=== PATIENT | female | born 1935 | race Caucasian/White ===

== ENCOUNTER 2017-09-17 12:31 | Inpatient (IN) | payer OTHER ==
[2017-09-17] VITALS (9 sets, daily range): BP systolic 137–159; BP diastolic 70–91; PULSE 76–89; TEMP 36.8–37; O2SAT 91–99; BMI 18.2
[~2017-09-17] VITALS: Ht 162.6 cm; Wt 45.4 kg
[~2017-09-17 12:31] MED LIST: CZR50; DYZ; K LYTE; LEVOXYL; VITAMIN D
[2017-09-17] MEDS ORDERED: CEFTRIAXONE SOD INJ 1 GM ADDVIAL IV STA (12:50)
[2017-09-17] MEDS ORDERED: METHYLPREDNISOLONE 125 MG VIAL IV STA (12:50)
[2017-09-17] MEDS ORDERED: AZITHROMYCIN 250 MG TAB PO ONE (13:00)
[2017-09-17] MEDS ORDERED: ALBUT/IPRATROP 3MG/0.5MG NEB 3 ML VIAL INH ONE (13:00)
[2017-09-17 13:28] LABS: BASO % 0.8 %; BASO ABS # 0.04 K/uL (0-0.2); EOS % 2.5 %; EOS ABS # 0.13 K/uL (0-0.5); HEMATOCRIT 44.6 % (37-47); HEMOGLOBIN 15.2 g/dL (12.0-16.0); IG# 0.01 K/uL (0.00-0.02); LYMPH ABS # 1.38 K/uL (1.2-3.4); MEAN CELL VOLUME 92.9 fL (80-100); MEAN CORPUSCULAR HEMOGLOBIN 31.7 pg (25-34); MEAN CORPUSCULAR HGB CONC 34.1 g/dl (32-36); MEAN PLATELET VOLUME 10.2 fL (7.4-10.4); MONO % 10.6 %; MONO ABS # 0.56 K/uL (0.11-0.59); NEUT % 59.9 %; NEUT ABS # 3.18 K/uL (1.4-6.5); PLATELET COUNT 156 K/uL (130-400); RED CELL DISTRIBUTION WIDTH CV 13.2 % (11.5-14.5); RED CELL DISTRIBUTION WIDTH SD 45.1 fL (36.4-46.3)
--- NOTE | 2017-09-17 13:33 | DIAGNOSTIC IMAGING REPORT ---
CHEST ONE VIEW PORTABLE CLINICAL HISTORY: Respiratory distress COMPARISON STUDY: 09/03/2009 FINDINGS: The chest has an emphysematous configuration. There is a left-sided pneumothorax with maximal pleural separation of 20 mm. There is no overt failure. Left basilar airspace opacities are likely atelectatic. There is mild blunting of the right lateral costophrenic angle.[ IMPRESSION: Left-sided pneumothorax with pleural separation of 20 mm. Electronically signed by: Erick Rivera M.D. 09/17/2017 1:32 PM Dictated Date/Time: 09/17/2017 1:30 PM
[2017-09-17 13:43] LABS: PTT PATIENT 27.3 SECONDS (21.0-31.0)
[2017-09-17 13:46] LABS: ALBUMIN 3.9 gm/dl (3.4-5.0); ALT/SGPT 21 U/L (12-78); BLOOD UREA NITROGEN 14 mg/dl (7-18); CALCIUM 9.4 mg/dl (8.5-10.1); CARBON DIOXIDE 30 mmol/L (21-32); CREATININE 0.68 mg/dl (0.60-1.20); GLUCOSE 97 mg/dl (70-99); POTASSIUM 3.2 mmol/L (3.5-5.1); SODIUM 134 mmol/L (136-145)
[2017-09-17 13:51] LABS: ALKALINE PHOSPHATASE 88 U/L (45-117); AST/SGOT 26 U/L (15-37); TOTAL PROTEIN 7.3 gm/dl (6.4-8.2)
[2017-09-17] MEDS ORDERED: CHOL100027 PO (13:56)
[2017-09-17] MEDS ORDERED: CYAN10005 PO (13:56)
[2017-09-17] MEDS ORDERED: POTA1POW PO (13:56)
[2017-09-17] MEDS ORDERED: AMLO-110 PO (13:56)
[2017-09-17] MEDS ORDERED: FOLI1TAB8 PO (13:56)
[2017-09-17] MEDS ORDERED: ALEN70TA2 PO (13:56)
[2017-09-17] MEDS ORDERED: LEVO88TA3 PO (13:56)
[2017-09-17] MEDS ORDERED: HYDR12.55 PO (13:56)
[2017-09-17] MEDS ORDERED: METO50TA16 PO (13:56)
[2017-09-17] MEDS ORDERED: ASCOGRA PO (13:56)
[2017-09-17] MEDS ORDERED: CHOL4POW5 PO (13:56)
[2017-09-17] MEDS ORDERED: [UNRECOGNIZED DRUG - OTHER] INJ (14:03)
[2017-09-17] MEDS ORDERED: LIDOCAINE 2% SQ (14:03)
--- NOTE | 2017-09-17 15:01 | EMERGENCY ROOM VISIT NOTE ---
History Report prepared by Adan: Richa Patterson Under the Supervision of: Dr. Francesco Morgan M.D. First contact with patient: 12:35 Chief Complaint: CHEST PAIN Stated Complaint: CHEST PAIN History of Present Illness The patient is an 82 year old white female with a past medical history of hypertension who presents to the ED with a cc of persistent SOB beginning 1 hour ago. She presents to the ED by EMS. She received aspirin and nitro in route. Positive nausea, cough, resolved palpitations, resolved chest pain. Negative vomiting, leg swelling, weight gain. She does smoke. She is not on any blood thinners. She received a flu shot this season. Source of History: patient, nursing staff Onset: 1 hour ago Position: other (global) Quality: other (SOB) Timing: other (persistent) Associated Symptoms: + cough, + chest pain (resolved), + nausea, No vomiting Review of Systems See HPI for pertinent positives and negatives. A total of ten systems were reviewed and were otherwise negative. Past Medical & Surgical Medical Problems: (1) COPD (chronic obstructive pulmonary disease) (2) History of Clostridium difficile infection (3) Hypertension (4) Hypothyroidism (5) BOB (iron deficiency anemia) (6) Macular degeneration (senile) of retina, unspecified (7) Osteoporosis (8) Tobacco use disorder (9) Venous insufficiency Surgical Problems: (1) H/O partial resection of colon Family History Cancer Heart disease Hypertension Social History Smoking Status: Current Every Day Smoker Occupation Status: retired Current/Historical Medications Scheduled Amlodipine (Norvasc), 5 MG PO DAILY Ascorbic Acid (Ascorbic Acid), 500 MG PO DAILY Cholecalciferol (D3 2000), 1 TAB PO DAILY Cholestyramine Light (Prevalite), 4 GM PO BID Cyanocobalamin (Vitamin B-12), 1,000 MCG PO DAILY Folic Acid (Folic Acid), 1 TAB PO HS Hydrochlorothiazide (Hydrochlorothiazide), 1 TAB PO DAILY Levothyroxine Sodium (Levothyroxine Sodium), 1 TAB PO QAM Metoprolol Tartrate (Lopressor) (Lopressor), 50 MG PO BID Potassium Bicarbonate (Potassium Bicarbonate), 25 MEQ PO HS Allergies Coded Allergies: Penicillins (Verified Allergy, Intermediate, RASH; HAS TOLERATED MEFOXIN, 09/17/17) NEGAR Inhibitors (Verified Adverse Reaction, Unknown, SEVERE COUGH, 09/17/17) Physical Exam Vital Signs Date Time Temp Pulse Resp B/P (MAP) Pulse Ox O2 Delivery O2 Flow Rate FiO2 09/17/17 15:31 85 96 09/17/17 15:30 150/94 09/17/17 15:01 84 161/87 98 09/17/17 14:31 83 125/93 90 09/17/17 14:01 81 98 09/17/17 14:00 151/91 09/17/17 13:46 99 Non-Rebreather 15.0 09/17/17 13:31 77 142/77 99 09/17/17 13:30 82 20 148/93 99 BiPAP 60 09/17/17 13:29 148/93 09/17/17 13:16 154/102 09/17/17 13:09 78 36 99 BiPAP/CPAP 60 09/17/17 13:07 76 99 60 09/17/17 13:01 76 29 98 09/17/17 12:59 78 09/17/17 12:42 154/102 09/17/17 12:32 98 Non-Rebreather 09/17/17 12:31 74 Room Air 09/17/17 12:31 36.5 81 23 154/102 98 Room Air 09/17/17 12:31 74 Room Air 09/17/17 12:31 74 Room Air 09/17/17 12:31 74 Room Air Physical Exam GENERAL: Awake, alert, emaciated, NAD HENT: Normocephalic, atraumatic. EYES: Normal conjunctiva. Sclera non-icteric. NECK: Supple. No nuchal rigidity. FROM. RESPIRATORY: Tachypnea, shallow breaths, bibasilar crackles. CARDIAC: RRR, no MRG ABDOMEN: Soft, NTND, BS+ MSK: No chest wall TTP, no LE edema NEURO: GCS 15, CN 2-12 intact, moves all 4s on command SKIN: No rash or jaundice noted. Medical Decision & Procedures ER Provider Diagnostic Interpretation: Xray results as stated below per my and radiologist interpretation: CHEST ONE VIEW PORTABLE CLINICAL HISTORY: Respiratory distress COMPARISON STUDY: 09/03/2009 FINDINGS: The chest has an emphysematous configuration. There is a left-sided pneumothorax with maximal pleural separation of 20 mm. There is no overt failure. Left basilar airspace opacities are likely atelectatic. There is mild blunting of the right lateral costophrenic angle.[ IMPRESSION: Left-sided pneumothorax with pleural separation of 20 mm. Electronically signed by: Erick Rivera M.D. 09/17/2017 1:32 PM Dictated Date/Time: 09/17/2017 1:30 PM Laboratory Results Test 09/17/17 12:22 Immature Granulocyte % (Auto) 0.2 % White Blood Count 5.30 K/uL (4.8-10.8) Red Blood Count 4.80 M/uL (4.2-5.4) Hemoglobin 15.2 g/dL (12.0-16.0) Hematocrit 44.6 % (37-47) Mean Corpuscular Volume 92.9 fL (80-100) Mean Corpuscular Hemoglobin 31.7 pg (25-34) Mean Corpuscular Hemoglobin Concent 34.1 g/dl (32-36) Platelet Count 156 K/uL (130-400) Mean Platelet Volume 10.2 fL (7.4-10.4) Neutrophils (%) (Auto) 59.9 % Lymphocytes (%) (Auto) 26.0 % Monocytes (%) (Auto) 10.6 % Eosinophils (%) (Auto) 2.5 % Basophils (%) (Auto) 0.8 % Neutrophils # (Auto) 3.18 K/uL (1.4-6.5) Lymphocytes # (Auto) 1.38 K/uL (1.2-3.4) Monocytes # (Auto) 0.56 K/uL (0.11-0.59) Eosinophils # (Auto) 0.13 K/uL (0-0.5) Basophils # (Auto) 0.04 K/uL (0-0.2) Immature Granulocyte # (Auto) 0.01 K/uL (0.00-0.02) Prothrombin Time 10.0 SECONDS (9.0-12.0) Prothromb Time International Ratio 1.0 (0.9-1.1) Activated Partial Thromboplast Time 27.3 SECONDS (21.0-31.0) Partial Thromboplastin Ratio 1.1 Total Bilirubin 1.3 mg/dl (0.2-1) Aspartate Amino Transf (AST/SGOT) 26 U/L (15-37) Alanine Aminotransferase (ALT/SGPT) 21 U/L (12-78) Alkaline Phosphatase 88 U/L (45-117) Total Protein 7.3 gm/dl (6.4-8.2) Albumin 3.9 gm/dl (3.4-5.0) Globulin 3.4 gm/dl (2.5-4.0) Albumin/Globulin Ratio 1.2 (0.9-2) Laboratory results reviewed by me Medications Administered Medications (Trade) Dose Ordered Sig/Rosa Isela Route Start Time Stop Time Status Last Admin Dose Admin Albuterol/ Ipratropium (Duoneb) 12 ml ONE ONCE INH 09/17/17 13:00 09/17/17 13:01 DC 09/17/17 13:07 12 ML Methylprednisolone Sodium Succinate (Solu-Medrol IV) 125 mg NOW STAT IV 09/17/17 12:50 09/17/17 12:53 DC 09/17/17 14:25 125 MG Ceftriaxone Sodium (Rocephin Inj) 1 gm NOW STAT IV 09/17/17 12:50 09/17/17 12:53 DC 09/17/17 14:25 1 GM Azithromycin (Zithromax Tab) 500 mg NOW ONCE PO 09/17/17 13:00 09/17/17 13:01 DC 09/17/17 14:25 500 MG ECG Indication: SOB/dyspnea Rate (beats per minute): 84 Rhythm: sinus with SA Findings: other (right axis deviation, normal intervals) Change: Patient's electrocardiogram interpreted by me. ED Course 1243: The patient was evaluated in room B9. A complete history and physical exam was performed. 1344: Dr. Bell was paged. 1444: I discussed the patient's case with Lexi Tapia PA-C [facility] hospitalist. The patient will be evaluated for further treatment and disposition. Medical Decision The patient is an 82 year old white female with a past medical history of hypertension who presents to the ED with a cc of persistent SOB beginning 1 hour ago. Differential diagnosis: Etiologies such as infections, reactive airway disease, pneumonia, pneumothorax , COPD, CHF, cardiac ischemia, pulmonary embolism, musculoskeletal, gastrointestinal, as well as others were entertained. Patient seen and evaluated at bedside. Patient w/ hypoxia in triage to high 70s. Placed on NRB mask. Patient mild tachypnea. Patient has mild chronic SOB but worse in last hour. Patient was given ASA and nitro en route. Denies improvement in symptoms. EKG no acute ischemia. BiPAP ordered and CXR, labs. Patient has > 60 pack year smoking hx so trx'ed for possible COPD exacerbation and covered empirically w/ abx given hypoxia and SOB. Patient CXR concerning for L sided PNX. Not very large. No shift. Likely 2/2 to COPD/emphysema bleb rupture given smoking hx. Patient immediately removed off BiPAP and placed back on NRB mask. Patient other blood work fairly unremarkable. Patient discussed w/ hospitalist to monitor for PNX. Discussed patient w/ thoracic surgery. Do not believe patient requires chest tube placement at this time. No midline shift on CXR, not tachy, tolerating NRB mask and not hypoxic, not hypotensive. Patient admitted to medicine. Medication Reconcilliation Current Medication List: was personally reviewed by me Blood Pressure Screening Patient's blood pressure: Elevated blood pressure Referred to hospitalist. Consults Time Called: 1440 Consulting Physician: CAITLYN Franks hospitalist Returned Call: [phone] Discussed the patient's case. The patient will be evaluated for further treatment and disposition. Impression Primary Impression: Pneumothorax Additional Impressions: SOB (shortness of breath) Respiratory failure with hypoxia COPD (chronic obstructive pulmonary disease) Hypokalemia Critical Care I have personally spent greater than 55 minutes of critical care time in the direct management of this patient. This includes bedside care, interpretation of diagnostic studies, and testing, discussion with consultants, patient, and family members, and other required patient management activities. This 55 minutes is in excess of all separately billable procedures. Scribe Attestation The scribe's documentation has been prepared under my direction and personally reviewed by me in its entirety. I confirm that the note above accurately reflects all work, treatment, procedures, and medical decision making performed by me. Departure Information Dispostion Being Evaluated By Hospitalist Referrals Blanca Perez M.D. (PCP) Patient Instructions My [facility] Problem Qualifiers Primary Impression: Pneumothorax Pneumothorax type: spontaneous, primary Qualified Codes: J93.11 - Primary spontaneous pneumothorax Additional Impressions: Respiratory failure with hypoxia Chronicity: acute Qualified Codes: J96.01 - Acute respiratory failure with hypoxia COPD (chronic obstructive pulmonary disease) COPD type: COPD with acute exacerbation Qualified Codes: J44.1 - Chronic obstructive pulmonary disease with (acute) exacerbation
[2017-09-17] MEDS ORDERED: POTASSIUM CHLORIDE 10 MEQ TABCR PO ONE (15:45)
[2017-09-17] MEDS ORDERED: SODIUM CHLORIDE 0.9% 1000ML 1,000 ML IV SCH (15:45)
[2017-09-17] MEDS ORDERED: FLV1 PO (15:49)
[2017-09-17] MEDS ORDERED: CHOL1TAB79 PO (15:49)
--- NOTE | 2017-09-17 16:01 | DIAGNOSTIC IMAGING REPORT ---
CHEST ONE VIEW PORTABLE CLINICAL HISTORY: 82 years-old Female presenting with serial XRs pneumothorax . TECHNIQUE: Portable upright AP view of the chest was obtained. COMPARISON: 09/17/2017. FINDINGS: Atherosclerosis of aortic arch. Cardiac silhouette mildly enlarged, unchanged. Lungs hyperinflated. Coarsened lung markings with relative radiolucency at the apices. Persistent small to moderate left pneumothorax with a pleural separation of 22 mm, not significant changed from prior (previously 20 mm). No pleural effusion. No new focal infiltrate. No mediastinal shift. Osteopenia. Upper abdomen normal. IMPRESSION: 1. Unchanged small to moderate left pneumothorax. 2. Emphysema. Electronically signed by: Kingsley Claros M.D. 09/17/2017 3:59 PM Dictated Date/Time: 09/17/2017 3:57 PM
--- NOTE | 2017-09-17 16:34 | History and Physical ---
History & Physical Date & Time of Service: Sep 17, 2017 at 16:31 Chief Complaint: Chest Pain Primary Care Physician: Lluvia Ingram D.O. History of Present Illness Source: patient, family (at bedside), clinic records, hospital records This is an 82yo F with a PMH of moderate COPD, HTN, tobacco use disorder, hypothyroidism and other medical problems listed below who presents with SOB beginning this morning. Patient states that 2 mornings ago, she woke up with severe pain behind her L shoulder blade that resolved spontaneously throughout the day. This morning, patient was getting ready for the day and became extremely SOB stating that she couldn't catch her breath and felt like she was suffocating. [place] her heart beating very rapidly and felt lightheaded. No chest pain. Called EMS and was found to be hypoxic in the 70s en route to the ED. Patient is a smoker and has >60 pack years. Does not use home O2 or inhalers. Lives alone and ambulates without assistive devices. Has a history of BOB but follows with hematology for IV iron injections. Received her last series 6 months ago and is due back to clinic for a follow-up. Denies fever, chills, headache, visual changes, chest pain, abdominal pain, nausea, vomiting, LE swelling. Has chronic diarrhea s/p R hemicolectomy for colon cancer. H/o C diff. Past Medical/Surgical History Medical Problems: (1) COPD (chronic obstructive pulmonary disease) Status: Chronic (2) History of Clostridium difficile infection Status: Chronic (3) Hypertension Status: Chronic (4) Hypothyroidism Status: Chronic (5) BOB (iron deficiency anemia) Status: Chronic (6) Macular degeneration (senile) of retina, unspecified Status: Chronic (7) Osteoporosis Status: Chronic (8) Tobacco use disorder Status: Chronic (9) Venous insufficiency Status: Chronic Family History Cancer Heart disease Hypertension Social History Smoking Status: Current Every Day Smoker Housing status: lives alone Occupational Status: retired Immunizations History of Influenza Vaccine: Yes Influenza Vaccine Date: May 24, 2010 History of Tetanus Vaccine?: No Tetanus Immunization Date: Feb [birth year], 1983 History of Pneumococcal: Yes Pneumococcal Date: Aug 24, 2006 History of Hepatitis B Vaccine: No Multi-Drug Resistant Organisms History of MDRO: No Allergies Coded Allergies: Penicillins (Verified Allergy, Intermediate, RASH; HAS TOLERATED MEFOXIN, 09/17/17) NEGAR Inhibitors (Verified Adverse Reaction, Unknown, SEVERE COUGH, 09/17/17) Home Medications Scheduled Amlodipine (Norvasc), 5 MG PO DAILY Ascorbic Acid (Ascorbic Acid), 500 MG PO DAILY Cholecalciferol (D3 2000), 1 TAB PO DAILY Cholestyramine Light (Prevalite), 4 GM PO BID Cyanocobalamin (Vitamin B-12), 1,000 MCG PO DAILY Folic Acid (Folic Acid), 1 TAB PO HS Hydrochlorothiazide (Hydrochlorothiazide), 1 TAB PO DAILY Levothyroxine Sodium (Levothyroxine Sodium), 1 TAB PO QAM Metoprolol Tartrate (Lopressor) (Lopressor), 50 MG PO BID Potassium Bicarbonate (Potassium Bicarbonate), 25 MEQ PO HS Review of Systems Ten systems reviewed and negative except as noted in the HPI. Physical Exam Vital Signs Date Time Temp Pulse Resp B/P (MAP) Pulse Ox O2 Delivery O2 Flow Rate FiO2 09/17/17 16:01 83 151/91 95 09/17/17 15:31 85 96 09/17/17 15:30 150/94 09/17/17 15:01 84 161/87 98 09/17/17 14:31 83 125/93 90 09/17/17 14:01 81 98 09/17/17 14:00 151/91 09/17/17 13:46 99 Non-Rebreather 15.0 09/17/17 13:31 77 142/77 99 09/17/17 13:30 82 20 148/93 99 BiPAP 60 09/17/17 13:29 148/93 09/17/17 13:16 154/102 09/17/17 13:09 78 36 99 BiPAP/CPAP 60 09/17/17 13:07 76 99 60 09/17/17 13:01 76 29 98 09/17/17 12:59 78 09/17/17 12:42 154/102 09/17/17 12:32 98 Non-Rebreather 09/17/17 12:31 74 Room Air 09/17/17 12:31 36.5 81 23 154/102 98 Room Air 09/17/17 12:31 74 Room Air 09/17/17 12:31 74 Room Air 09/17/17 12:31 74 Room Air General Appearance: + mild distress, + pertinent finding (Cachectic, Breathing comfortably with non-rebreather. ) Head: normocephalic, atraumatic Eyes: normal inspection, PERRL, sclerae normal ENT: normal ENT inspection, hearing grossly normal, pharynx normal Neck: supple, thyroid normal, trachea midline Respiratory/Chest: chest non-tender, lungs clear, no respiratory distress, no accessory muscle use, + decreased breath sounds (2/2 shallow breaths ), + pertinent finding (Coarse breath sounds ) Cardiovascular: regular rate, rhythm, no murmur, normal peripheral pulses Abdomen/GI: non tender, soft, no organomegaly Back: normal inspection Extremities/Musculoskelatal: normal inspection, no calf tenderness, no pedal edema Neurologic/Psych: no motor/sensory deficits, alert, normal mood/affect, oriented x 3 Skin: normal color, warm/dry Diagnostics Laboratory Results Results Past 24 Hours Test 09/17/17 12:22 Range/Units White Blood Count 5.30 4.8-10.8 K/uL Red Blood Count 4.80 4.2-5.4 M/uL Hemoglobin 15.2 12.0-16.0 g/dL Hematocrit 44.6 37-47 % Mean Corpuscular Volume 92.9 80-100 fL Mean Corpuscular Hemoglobin 31.7 25-34 pg Mean Corpuscular Hemoglobin Concent 34.1 32-36 g/dl Platelet Count 156 130-400 K/uL Mean Platelet Volume 10.2 7.4-10.4 fL Neutrophils (%) (Auto) 59.9 % Lymphocytes (%) (Auto) 26.0 % Monocytes (%) (Auto) 10.6 % Eosinophils (%) (Auto) 2.5 % Basophils (%) (Auto) 0.8 % Neutrophils # (Auto) 3.18 1.4-6.5 K/uL Lymphocytes # (Auto) 1.38 1.2-3.4 K/uL Monocytes # (Auto) 0.56 0.11-0.59 K/uL Eosinophils # (Auto) 0.13 0-0.5 K/uL Basophils # (Auto) 0.04 0-0.2 K/uL RDW Standard Deviation 45.1 36.4-46.3 fL RDW Coefficient of Variation 13.2 11.5-14.5 % Immature Granulocyte % (Auto) 0.2 % Immature Granulocyte # (Auto) 0.01 0.00-0.02 K/uL Prothrombin Time 10.0 9.0-12.0 SECONDS Prothromb Time International Ratio 1.0 0.9-1.1 Activated Partial Thromboplast Time 27.3 21.0-31.0 SECONDS Partial Thromboplastin Ratio 1.1 Sodium Level 134 136-145 mmol/L Potassium Level 3.2 3.5-5.1 mmol/L Chloride Level 97 98-107 mmol/L Carbon Dioxide Level 30 21-32 mmol/L Anion Gap 7.0 3-11 mmol/L Blood Urea Nitrogen 14 7-18 mg/dl Creatinine 0.68 0.60-1.20 mg/dl Est Creatinine Clear Calc Drug Dose 47.5 ml/min Estimated GFR () 93.8 Estimated GFR (Non- 80.9 BUN/Creatinine Ratio 21.2 10-20 Random Glucose 97 70-99 mg/dl Calcium Level 9.4 8.5-10.1 mg/dl Total Bilirubin 1.3 0.2-1 mg/dl Aspartate Amino Transf (AST/SGOT) 26 15-37 U/L Alanine Aminotransferase (ALT/SGPT) 21 12-78 U/L Alkaline Phosphatase 88 45-117 U/L Troponin I < 0.015 0-0.045 ng/ml Total Protein 7.3 6.4-8.2 gm/dl Albumin 3.9 3.4-5.0 gm/dl Globulin 3.4 2.5-4.0 gm/dl Albumin/Globulin Ratio 1.2 0.9-2 Diagnostic Radiology CXR: IMPRESSION: Left-sided pneumothorax with pleural separation of 20 mm. EKG Normal sinus rhythm with sinus arrhythmia Impression Assessment and Plan This is an 82yo F with a PMH of moderate COPD, HTN, tobacco use disorder, hypothyroidism and other medical problems listed below who presents with SOB beginning this morning and was found to have a small left sided pneumothorax. Acute on chronic hypoxic respiratory failure: -2/2 pneumothorax, copd exacerbation -Found to be hypoxic in 70s by EMS -O2 saturation improved on non-rebreather -Transitioned to 5L NC -Monitor Left pneumothorax: -L shoulder pain, SOB -CXR with Left-sided pneumothorax with pleural separation of 20 mm -Consulted thoracic surgery, pulmonary -Serial CXRs -NC O2 to maintain oxygen saturation >90% COPD exacerbation: -History of moderate COPD. Does not take home inhalers, use O2 -Over 60 pack years, still smoking -Given rocephin, zithromax, IV steroids in ED -Continue antibiotics -Solumedrol -Duonebs Hypothyroidism: -Cont levothyroxine HTN: -Cont home dose amlodipine, hctz, lopressor Hypokalemia: -Replaced -Cont home dose oral supplements Tobacco use disorder: -Smoking cessation ordered Diarrhea: -H/o colon cancer s/p resection, c diff -Cont home dose Prevalite -C diff pending Anemia (iron deficiency, b12 deficiency): -Hgb within normal range at 15 -Has a history of BOB but follows with hematology for IV iron injections -Cont Vit b12, folate supplementation DVT Ppx: SCDs Code status: FULL per discussion with patient, family PCP: Nataly Dispo: Admitted telemetry. Discharge planning (patient lives alone and is >80). PT/OT evals ordered. Patient seen in collaboration with Dr. Gong. Please see addendum. ATTENDING ADDENDUM : pt seen and examined , care co -ordinated with Lexi Tapia PA-C 82 yo F with hx of heavy smoking for long time ( 1 pk a day > 50 yrs ) presents with sudden onset of severe chest pain /SOB was hypoxic in ER Spo2 74 % in RA CXray shows : left Lung pneumothorax 2 cm pleural separation , tubular heart with flattened diaphragm , suggestive of severe underlying emphysematous lung disease P/E: GEN : frail appearing elderly female, very pleasant, no apparent distress noted ,speaking in sentences HEENT : sclera non icteric , PERRLA/EOMI HT : S1/S2 , no lower ext edema LUNGS; diminished, no wheeze or rales noted ABDOMEN : soft, non tender EXT : no rash or deformity NEURO: no focal deficit , AAO x3, A/P ACUTE ON CHRONIC RESPIRATORY FAILURE : hx of heaving smoking for years -possible underlying advanced emphysema /COPD ( no formal diagnosis ) presents with SOB /Hypoxia , found to have spontaneous pneumothorax in left upper lungs -possible rupture of bullae hypoxia improved after 02 supplement , given IV steroid and 1 hr long neb x in ER pt is admitted to PCU cont respiratory support -on 4 l 02 via nasal canula ( was not on home 02 ) cont IV solu medrol , Neb tx CT surgery consulted for pneumothorax -appreciate input , serial Cxray ordered- shows stable 21 mm Left sided pneumothorax cont to observe as pt remains clinically stable in any event of respiratory distress, progressive hypoxia , increase in size of the pneumothorax -will need chest tube placement Pulmonology eval requested, pt will need formal PFT testing as out pt possible 2 step exercise to assess for home02 TOBACCO ABUSE DISORDER: smokes a pk /cig a day for last 50-60yrs smoking cessation counselling provided pt is updated -her spont pneumothorax /SOB are consequences of supervisor intermediates heaving smoking willing to quit LOW BMI/PROTEIN CALORIE MALNUTRITION : possible due to advanced pulm disease liberalized diet to regular dietary consulted for supplements LOW NA/LOW K possible due to HCTZ /poor PO intake NSS IV fluid ordered K replaced, repeat BMP in AM FULL CODE please refer to documentation of Lexi Tapia PA-C for further discussion of other issues BRENDA GONG MD VITALS : Last 8 Hrs Date Time Temp Pulse Resp B/P (MAP) Pulse Ox O2 Delivery O2 Flow Rate FiO2 09/17/17 20:04 36.8 89 20 138/70 (92) 91 Nasal Cannula 4.0 09/17/17 19:23 84 22 92 Nasal Cannula 4.0 09/17/17 18:19 94 Nasal Cannula 4.0 Humidified Oxygen 09/17/17 17:21 93 Nasal Cannula 5.0 09/17/17 16:50 37.0 85 24 159/91 96 Non-Rebreather 15.0 09/17/17 16:01 83 151/91 95 09/17/17 15:31 85 96 09/17/17 15:30 150/94 09/17/17 15:01 84 161/87 98 09/17/17 14:31 83 125/93 90 09/17/17 14:01 81 98 09/17/17 14:00 151/91 Level of Care Telemetry Resuscitation Status FULL RESUSCITATION VTE Prophylaxis VTE Risk Assessment Done? Y/N: Yes Risk Level: Moderate Given or contraindicated: SCD's Additional Copies To Lluvia Ingram D.O.
[2017-09-17] MEDS: ALBUT/IPRATROP 3MG/0.5MG NEB 3 ML VIAL INH SCH ×2 (17:35→19:20)
--- NOTE | 2017-09-17 19:51 | SURGICAL CONSULTATION ---
DATE OF CONSULTATION: 09/17/2017 REASON FOR CONSULTATION: Left spontaneous pneumothorax. 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 She became acutely short of breath this morning and called EMS and presented to the Emergency Department. She was found to have left-sided pneumothorax. She felt much better. I was asked to evaluate her. She is being admitted to the hospitalist service. She has multiple other issues. The pneumothorax was evaluated. She had an x-ray done at 1:30 and then we repeated one at almost 4:00 and there really has not been much of a change, although she had a larger basilar component. She is not short of breath. She is on oxygen with 95% saturations. She has never had spontaneous pneumothorax in the past. PAST MEDICAL HISTORY: 1. Active cigarette smoking (began smoking at age 19). 2. Chronic obstructive pulmonary disease with emphysema. 3. Hypertension. 4. Hypothyroidism. PAST SURGICAL HISTORY: 2, para 2. MEDICATIONS: 1. Amlodipine. 2. Ascorbic acid. 3. Potassium supplements. 4. Metoprolol. 5. Synthroid. 6. Hydrochlorothiazide. 7. Cholestyramine Light. 8. Folic acid. ALLERGIES: 1. PENICILLIN WHICH CAUSES A RASH. 2. NEGAR INHIBITORS WHICH CAUSE SEVERE COUGH. SOCIAL HISTORY: The patient lives by herself with her dog. Her a few years ago. 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 She is independent with her activities of daily living. She is supported by her family very nicely. FAMILY MEDICAL HISTORY: The patient's mother at 93 from "old age." Father at age 75 after myocardial infarction. She has a sister who she is not close to and she is unsure if she has any medical problems. Her children are healthy as are her grandchildren and great grandchildren. REVIEW OF SYSTEMS: The patient weighs 97 pounds but states that she has not lost any weight. She wears glasses. She denies any change in her hearing or visual acuity in the last few months. She has had no neurologic events such as amaurosis fugax, transient ischemic attacks or focal weakness. She denies any seizures or significant headaches. She does have dyspnea on exertion. She denies palpitations or chest pain prior to her spontaneous pneumothorax this morning. She denies nausea or vomiting or diarrhea. She has had no wound breakdown. She does have some swelling of her lower legs which interestingly enough she states is worse in the morning when she awakens and after she has been up walking. PHYSICAL EXAMINATION: GENERAL: This is a very pleasant 82-year-old who appears her stated age. She stands 5 feet 3 inches tall and weighs 105 pounds on the scale in the Emergency Room. HEENT: She wears glasses. Her extraocular movements are intact. She has bilateral arcus senilis. Her sclerae are pale but anicteric. She has no nasolabial flattening. She has had significant amount of dental work done but she does not have full dentures. I detect no oral mucosal lesions. NECK: Midline. She has no neck vein distention. She has no tracheal deviation or carotid bruits. I do not palpate any axillary, supraclavicular or cervical lymph nodes. LUNGS: She has decreased breath sounds on both sides but no overt wheezing. I do not hear rales. HEART: Her heart sounds are distant but she has regular rate and rhythm of her heart. ABDOMEN: Soft, scaphoid, flat, nontender. No evidence of ascites or abdominal aortic aneurysm. EXTREMITIES: She has good femoral pulses. I have difficulty palpating her pedal pulses but she has faint dorsalis pedis pulses bilaterally. She has trace edema of her lower legs but no hemosiderin deposition or lipodermatosclerosis. I detect no joint effusions. NEUROLOGIC: She is awake, alert and oriented. She has no obvious focal deficits. ASSESSMENT AND PLAN: Unchanging small to moderate left pneumothorax. I had a long talk with the patient and she understands chest tubes from her occupation as a nurse. She states quite frankly she would like to hold off if possible. At this point, I think being admitted to the medical service and observed on oxygen is reasonable. I have also explained that should she deteriorate, we may end up putting a small chest tube in the middle of the night. She understands. I will follow her and check a chest x-ray in the morning. Thank you very much.
[2017-09-17] MEDS: METOPROLOL TARTRATE 50 MG TAB PO SCH (20:11)
--- NOTE | 2017-09-17 21:11 | DIAGNOSTIC IMAGING REPORT ---
CHEST ONE VIEW PORTABLE CLINICAL HISTORY: 82 years-old Female presenting with F/u PTX. TECHNIQUE: Portable upright AP view of the chest was obtained. COMPARISON: 09/17/2017 at 3:43 PM. FINDINGS: Atherosclerosis of aortic arch. Cardiac silhouette mildly enlarged. Hyperinflation of the lungs with relative radiolucency of the upper lobes. Significant interval increase in left lower lobe collapse, which now appears complete. Persistent small moderate left pleural effusion with a pleural separation of 21 mm, unchanged. Osteopenia. Upper abdomen normal. IMPRESSION: 1. Interval development of complete left lower lobe collapse. 2. Unchanged small to moderate left pneumothorax. 3. Emphysema. The report will be called/faxed according to standard departmental protocol. Electronically signed by: Kingsley Claros M.D. 09/17/2017 9:09 PM Dictated Date/Time: 09/17/2017 9:07 PM
[2017-09-17] MEDS: METHYLPREDNISOLONE IV 40 MG in SYRINGE 0 ML IV SCH (21:51)
[2017-09-17] MEDS: CHOLESTYRAMINE LIGHT 4 GM PKT PO SCH (21:51)
--- NOTE | 2017-09-17 21:52 | Progress Note ---
Progress Note Date of Service Sep 17, 2017. Progress Note ATTENDING NOTE : cxray at 2100 reviewed : Unchanged left upper lung Pneumothorax with pleural separation 21 mm pt remains hemodynamically stable denies of any symptom of chest pain or SOB Spo2 94 % on 4 L 02 via NC repeat Cxray ordered in AM
[2017-09-18] VITALS (16 sets, daily range): BP systolic 115–147; BP diastolic 62–84; PULSE 72–104; TEMP 36.4–37; O2SAT 91–99; Ht 162.6 cm; Wt 45.4 kg
[2017-09-18] MEDS: METHYLPREDNISOLONE IV 40 MG in SYRINGE 0 ML IV SCH ×3 (05:30→21:46)
[2017-09-18] MEDS: LEVOTHYROXINE 88 MCG TAB PO SCH (05:31)
[2017-09-18 05:54] LABS: HEMOGLOBIN 12.4 g/dL (12.0-16.0); MEAN CELL VOLUME 91.8 fL (80-100); MEAN CORPUSCULAR HEMOGLOBIN 30.8 pg (25-34); MEAN CORPUSCULAR HGB CONC 33.5 g/dl (32-36); MEAN PLATELET VOLUME 9.7 fL (7.4-10.4); PLATELET COUNT 139 K/uL (130-400); RED CELL DISTRIBUTION WIDTH SD 43.9 fL (36.4-46.3); WHITE BLOOD COUNT 4.69 K/uL (4.8-10.8)
[2017-09-18 06:29] LABS: CALCIUM 8.4 mg/dl (8.5-10.1); CREATININE 0.75 mg/dl (0.60-1.20); POTASSIUM 4.2 mmol/L (3.5-5.1)
[2017-09-18] MEDS: ALBUT/IPRATROP 3MG/0.5MG NEB 3 ML VIAL INH SCH ×4 (07:00→19:05)
--- NOTE | 2017-09-18 07:12 | DIAGNOSTIC IMAGING REPORT ---
CHEST ONE VIEW PORTABLE CLINICAL HISTORY: pneumothorax COMPARISON STUDY: September 17, 2017 FINDINGS: There is radiographic evidence of emphysema. There is a stable left apical pneumothorax the pleural separation of 21 mm. There is left lower lobe collapse. There is stable blunting of the right lateral costophrenic angle.[ IMPRESSION: 1. Persistent left lower lobe collapse 2. Persistent 21 mm left apical pneumothorax Electronically signed by: Erick Rivera M.D. 09/18/2017 7:11 AM Dictated Date/Time: 09/18/2017 7:09 AM
[2017-09-18] MEDS: POTASSIUM CHLORIDE 20 MEQ TABCR PO SCH (07:56)
[2017-09-18] MEDS: CHOLECALCIFEROL 1000 INTER.UNIT TAB PO SCH (07:57)
[2017-09-18] MEDS: METOPROLOL TARTRATE 50 MG TAB PO SCH ×2 (07:57→20:46)
[2017-09-18] MEDS: ASCORBIC ACID 500 MG TAB PO SCH (07:57)
[2017-09-18] MEDS: HYDROCHLOROTHIAZIDE 25 MG TAB PO SCH (07:57)
[2017-09-18] MEDS: AMLODIPINE BESYLATE 5 MG TAB PO SCH (07:57)
[2017-09-18] MEDS: AZITHROMYCIN 250 MG TAB PO SCH (07:57)
[2017-09-18] MEDS: CYANOCOBALAMIN 500 MCG TAB (VIT B-12) PO SCH (07:58)
--- NOTE | 2017-09-18 08:48 | SURGERY PROGRESS NOTE ---
DATE: 09/18/2017 Ms. Florentino was seen today. She "feels better." Her x-ray showed unchanged small pneumothorax. She is having some pain in her left shoulder which was the presenting symptoms for this. She denies dyspnea. She is not using accessory muscles. Her saturations on 4 liters had been anywhere from 92-99%. I was pleased with her x-ray and really saw no change from her prior CXR. At this point, I would hold off putting a chest tube inti her left pleural cavity. I would recommend that we use a nicotine patch as the patient has been smoking a pack of cigarette regularly until the time of her admission. Otherwise, I would hold off inserting a chest tube today. We will continue to follow her with serial x-rays. ROBERT
[2017-09-18] MEDS: CHOLESTYRAMINE LIGHT 4 GM PKT PO SCH ×2 (10:00→21:46)
[2017-09-18] MEDS: CEFTRIAXONE SOD INJ 1 GM in DEXTROSE 5% ADD-VANTAGE 50ML 50 ML IV SCH (14:46)
--- NOTE | 2017-09-18 18:55 | Pulmonary Consultation ---
History General Date of Service: Sep 18, 2017. Chief Complaint: Pneumothorax, shortness of breath Stated Complaint: Copd, Pneumothorax, Respiratory Failure W/ Hypoxia HPI The patient is a 82 year old female who presents to [facility] with complaints of Copd, Pneumothorax, Respiratory Failure W/ Hypoxia. The patient's primary care provider is Lluvia Ingram D.O.. Patient lives at home and presented with shortness of breath and pneumothorax at the left apex equal to 19 mm. Repeat chest x-rays appear stable with most recent chest x-ray showing pneumothorax of 20 mm of separation. Patient normally on room air at home. Saturating well at 2 L/min via nasal cannula with SaO2 in the mid 90s. No further respiratory distress. Patient reports being a 1 pack per day smoker since age 19. She lives alone. Patient had no preemptive illness. No recent travel. No contact with sick contacts. In addition to pulmonary being contacted for COPD exacerbation, Dr. Bell also consulted to follow pneumothorax. 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 Previously described pain around left shoulder blade has resolved. No further complaints. Historian: patient Review of Systems A total of 12 systems was reviewed and is negative other than as listed above in the HPI All Other Symptoms All Other Systems: Reviewed and Negative Past Medical History Past Medical History: Medical Problems: (1) COPD (chronic obstructive pulmonary disease) (2) History of Clostridium difficile infection in 2009 (3) Hypertension (4) Hypothyroidism (5) BOB (iron deficiency anemia) (6) Macular degeneration (senile) of retina, unspecified (7) Osteoporosis (8) Tobacco use disorder-daily use of cigarettes (9) Venous insufficiency (10) history of MRSA in 2009 (11) history of colon cancer with reversal and anastomosis of colostomy Past Surgical History: Surgical Problems: (1) H/O partial resection of colon (2) reversal of colostomy Family History Cancer Heart disease Hypertension Social History Hx Tobacco Use In Past Year?: Yes Smoking Status: Current Every Day Smoker Alcohol: socially Drug Use: none Marital status: Housing status: lives alone Occupational Status: retired Immunizations History of Influenza Vaccine: Yes Influenza Vaccine Date: May 24, 2010 History of Tetanus Vaccine?: No Tetanus Immunization Date: Feb 26, 1984 History of Pneumococcal: Yes Pneumococcal Date: Aug 24, 2006 History of Hepatitis B Vaccine: No History of MDRO History of MDRO: No Allergies Coded Allergies: Penicillins (Verified Allergy, Intermediate, RASH; HAS TOLERATED MEFOXIN, 09/17/17) NEGAR Inhibitors (Verified Adverse Reaction, Unknown, SEVERE COUGH, 09/17/17) Current Medications Reported Home Medications Medications Dose Route/Sig Max Daily Dose Days Date Category Vitamin B-12 (Cyanocobalamin) 1,000 Mcg Tab 1,000 Mcg PO DAILY 09/17/17 Reported Ascorbic Acid 1 Pow Pow 500 Mg PO DAILY 09/17/17 Reported Prevalite (Cholestyramine Light) 4 Gm/Dose Pow 4 Gm PO BID 09/17/17 Reported Norvasc (Amlodipine Besylate) 5 Mg Tab 5 Mg PO DAILY 09/17/17 Reported Lopressor (Metoprolol Tartrate) 50 Mg Tab 50 Mg PO BID 09/17/17 Reported Potassium Bicarbonate 1 Pow Pow 25 Meq PO HS 09/17/17 Reported Hydrochlorothiazide 12.5 Mg Tab 1 Tab PO DAILY 09/17/17 Reported Levothyroxine Sodium 88 Mcg Tab 1 Tab PO QAM 09/17/17 Reported Physical Physical Exam Vital Signs: Date Time Temp Pulse Resp B/P (MAP) Pulse Ox O2 Delivery O2 Flow Rate FiO2 09/18/17 15:45 37.0 83 18 115/70 (85) 92 Nasal Cannula 3.0 09/18/17 15:17 85 93 09/18/17 14:37 76 20 92 Nasal Cannula 3.0 09/18/17 12:02 Nasal Cannula 3.0 09/18/17 11:41 36.7 78 23 147/78 (101) 92 Nasal Cannula 2.0 09/18/17 11:17 77 20 95 Nasal Cannula 4.0 09/18/17 08:05 92 Nasal Cannula 4.0 09/18/17 07:01 36.8 74 20 145/83 (103) 96 Nasal Cannula 4.0 09/18/17 07:00 72 20 93 Nasal Cannula 4.0 09/18/17 04:10 99 Nasal Cannula 4.0 09/18/17 03:13 36.4 75 22 116/62 (80) 96 Nasal Cannula 4.0 09/18/17 00:03 95 Nasal Cannula 4.0 09/17/17 23:15 36.8 81 20 137/90 (106) 91 Nasal Cannula 4.0 09/17/17 20:11 93 Nasal Cannula 4.0 09/17/17 20:04 36.8 89 20 138/70 (92) 91 Nasal Cannula 4.0 09/17/17 19:23 84 22 92 Nasal Cannula 4.0 Weight in Kilograms: 47.6 GENERAL : No acute distress. Good sense of humor EYES: No icterus, gaze conjugate. PERRL NOSE: No evidence of epistaxis MOUTH: No lesions or candidiasis NECK: Supple LUNGS: No rales or rhonchi. Bronchospasm and lower bilateral lung acosta HEART: Regular, rate controlled ABDOMEN: Soft, NT, ND, BS Present EXTREMITIES: No LE edema, pedal pulses intact NEURO: [facility] Labs Results Past 24 Hours Test 09/17/17 19:15 09/18/17 00:15 09/18/17 05:19 Range/Units Urine Color YELLOW Urine Appearance CLEAR CLEAR Urine pH 6.5 4.5-7.5 Urine Specific [place] 1.016 1.000-1.030 Urine Protein 1+ NEG Urine Glucose (UA) NEG NEG Urine Ketones NEG NEG Urine Occult Blood TRACE NEG Urine Nitrite NEG NEG Urine Bilirubin NEG NEG Urine Urobilinogen NEG NEG Urine Leukocyte Esterase NEG NEG Urine WBC (Auto) 1-5 0-5 /hpf Urine RBC (Auto) 5-10 0-4 /hpf Urine Hyaline Casts (Auto) 1-5 0-5 /lpf Urine Epithelial Cells (Auto) 20-30 0-5 /lpf Urine Bacteria (Auto) NEG NEG Troponin I < 0.015 0-0.045 ng/ml White Blood Count 4.69 4.8-10.8 K/uL Red Blood Count 4.03 4.2-5.4 M/uL Hemoglobin 12.4 12.0-16.0 g/dL Hematocrit 37.0 37-47 % Mean Corpuscular Volume 91.8 80-100 fL Mean Corpuscular Hemoglobin 30.8 25-34 pg Mean Corpuscular Hemoglobin Concent 33.5 32-36 g/dl RDW Standard Deviation 43.9 36.4-46.3 fL RDW Coefficient of Variation 13.0 11.5-14.5 % Platelet Count 139 130-400 K/uL Mean Platelet Volume 9.7 7.4-10.4 fL Sodium Level 135 136-145 mmol/L Potassium Level 4.2 3.5-5.1 mmol/L Chloride Level 101 98-107 mmol/L Carbon Dioxide Level 28 21-32 mmol/L Anion Gap 6.0 3-11 mmol/L Blood Urea Nitrogen 23 7-18 mg/dl Creatinine 0.75 0.60-1.20 mg/dl Est Creatinine Clear Calc Drug Dose 42.7 ml/min Estimated GFR () 85.4 Estimated GFR (Non- 73.7 BUN/Creatinine Ratio 30.7 10-20 Random Glucose 122 70-99 mg/dl Calcium Level 8.4 8.5-10.1 mg/dl Diagnostic Radiology CHEST ONE VIEW PORTABLE CLINICAL HISTORY: pneumothorax COMPARISON STUDY: September 17, 2017 FINDINGS: There is radiographic evidence of emphysema. There is a stable left apical pneumothorax the pleural separation of 21 mm. There is left lower lobe collapse. There is stable blunting of the right lateral costophrenic angle.[ IMPRESSION: 1. Persistent left lower lobe collapse 2. Persistent 21 mm left apical pneumothorax Electronically signed by: Erick Rivera M.D. 09/18/2017 7:11 AM Impression Assessment and Plan COPD EXACERBATION * Patient does not require supplemental O2 at home * Titrate supplemental O2 as tolerated to maintain SaO2 between 88 and 92% * Continue with IV steroids * Patient started on azithromycin and ceftriaxone * Patient feels improved since admission LEFT PNEUMOTHORAX * Patient is currently being followed by Dr. Bell who was consulted this admission * 21 mm persistent pneumothorax on the left. * Patient refusing chest tube at this time but remains clinically stable * Further management per Dr. Bell DVT PROPHYLAXIS * SCD/TEDs * Ambulate as tolerated Thank you for including us in the care of this patient. Please refer to Dr. Bingham addendum for further recommendations. We will continue to follow along with this patient
--- NOTE | 2017-09-18 20:03 | Progress Note ---
Progress Note Date of Service Sep 18, 2017. Progress Note Subjective: patient speaking comfortably on nasal cannula Physical Exam General Appearance: no distress Head: normocephalic, atraumatic Eyes: normal inspection, sclerae normal ENT: normal ENT inspection, hearing grossly normal, pharynx normal Neck: supple, thyroid normal, trachea midline Respiratory/Chest: chest non-tender, lungs clear, no respiratory distress, no accessory muscle use, good air entry, no wheezing Cardiovascular: regular rate, rhythm Abdomen/GI: non tender, soft, no organomegaly Back: normal inspection Extremities/Musculoskelatal: normal inspection, no calf tenderness, no pedal edema Neurologic/Psych: no motor/sensory deficits, alert, normal mood/affect, oriented x 3 Skin: normal color, warm/dry Admission CXR: The chest has an emphysematous configuration. There is a left-sided pneumothorax with maximal pleural separation of 20 mm. There is no overt failure. Left basilar airspace opacities are likely atelectatic. There is mild blunting of the right lateral costophrenic angle.[ IMPRESSION: Left-sided pneumothorax with pleural separation of 20 mm Recent CXR There is radiographic evidence of emphysema. There is a stable left apical pneumothorax the pleural separation of 21 mm. There is left lower lobe collapse. There is stable blunting of the right lateral costophrenic angle. IMPRESSION: 1. Persistent left lower lobe collapse 2. Persistent 21 mm left apical pneumothorax Patient is being followed by CT surgery for LEFT PNEUMOTHORAX. Plans to continue with serial X rays. Chest tube is apparently not needed at this time although patient was counseled of this possibility if breathing symptoms worsen Patient currently speaking and breathing comfortably on nasal cannula and understands using incentive spirometer COPD EXACERBATION Patient does not require supplemental O2 at home Titrate supplemental O2 as tolerated to maintain SaO2 between 88 and 92% Continue with IV steroids Patient started on azithromycin and ceftriaxone Hypothyroidism: -Cont levothyroxine HTN: -Cont home dose amlodipine, hctz, lopressor Hypokalemia: -Replaced -Cont home dose oral supplements Tobacco use disorder: -Smoking cessation ordered Diarrhea: -H/o colon cancer s/p resection -Cont home dose Prevalite -C diff was ordered Anemia (iron deficiency, b12 deficiency): -Hgb within normal range at 15 -Has a history of BOB but follows with hematology for IV iron injections -Cont Vit b12, folate supplementation DVT Ppx: SCDs Code status: FULL
[2017-09-19] VITALS (12 sets, daily range): BP systolic 129–168; BP diastolic 68–81; PULSE 80–103; TEMP 36.5–37.1; O2SAT 92–96
[2017-09-19] MEDS: LEVOTHYROXINE 88 MCG TAB PO SCH (06:04)
[2017-09-19] MEDS: METHYLPREDNISOLONE IV 40 MG in SYRINGE 0 ML IV SCH ×3 (06:05→19:57)
--- NOTE | 2017-09-19 07:25 | DIAGNOSTIC IMAGING REPORT ---
CHEST ONE VIEW PORTABLE CLINICAL HISTORY: 82 years-old Female presenting with serial XR for pneumothorax. TECHNIQUE: Portable upright AP view of the chest was obtained. COMPARISON: 09/18/2017. FINDINGS: Atherosclerosis of aortic arch. Cardiac silhouette enlarged. Persistent collapse of the left lower lobe. Moderate left pneumothorax with a pronounced basilar component, unchanged. Hyperinflation of the remaining lungs with heterogeneous radiolucency of the apices. Osteopenia suspected. Upper abdomen normal. IMPRESSION: 1. No significant change in left pneumothorax. 2. Persistent left lower lobe collapse. 3. Emphysema. Electronically signed by: Kingsley Claros M.D. 09/19/2017 7:23 AM Dictated Date/Time: 09/19/2017 7:21 AM
[2017-09-19] MEDS: ALBUT/IPRATROP 3MG/0.5MG NEB 3 ML VIAL INH SCH ×4 (07:27→19:26)
[2017-09-19] MEDS: ASCORBIC ACID 500 MG TAB PO SCH (08:53)
[2017-09-19] MEDS: CYANOCOBALAMIN 500 MCG TAB (VIT B-12) PO SCH (08:53)
[2017-09-19] MEDS: CHOLECALCIFEROL 1000 INTER.UNIT TAB PO SCH (08:53)
[2017-09-19] MEDS: AMLODIPINE BESYLATE 5 MG TAB PO SCH (08:53)
[2017-09-19] MEDS: AZITHROMYCIN 250 MG TAB PO SCH (08:53)
[2017-09-19] MEDS: POTASSIUM CHLORIDE 20 MEQ TABCR PO SCH (08:54)
[2017-09-19] MEDS: HYDROCHLOROTHIAZIDE 25 MG TAB PO SCH (08:54)
[2017-09-19] MEDS: METOPROLOL TARTRATE 50 MG TAB PO SCH ×2 (08:54→19:56)
[2017-09-19] MEDS ORDERED: LIDOCAINE HCL 1% 20 ML VIAL ONE (09:57)
[2017-09-19] MEDS ORDERED: LIDOCAINE HCL 1% 20 ML VIAL INFIL ONE (10:00)
[2017-09-19 10:15] LABS: HEMATOCRIT 39.4 % (37-47); HEMOGLOBIN 13.3 g/dL (12.0-16.0); IG# 0.03 K/uL (0.00-0.02); LYMPH % 2.6 %; LYMPH ABS # 0.35 K/uL (1.2-3.4); MEAN CELL VOLUME 92.3 fL (80-100); MEAN CORPUSCULAR HEMOGLOBIN 31.1 pg (25-34); MEAN CORPUSCULAR HGB CONC 33.8 g/dl (32-36); MEAN PLATELET VOLUME 9.8 fL (7.4-10.4); MONO % 2.7 %; MONO ABS # 0.37 K/uL (0.11-0.59); NEUT % 94.5 %; NEUT ABS # 12.81 K/uL (1.4-6.5); PLATELET COUNT 142 K/uL (130-400); RED CELL DISTRIBUTION WIDTH CV 13.3 % (11.5-14.5); RED CELL DISTRIBUTION WIDTH SD 44.5 fL (36.4-46.3); WHITE BLOOD COUNT 13.56 K/uL (4.8-10.8)
[2017-09-19 10:42] LABS: ALBUMIN 3.3 gm/dl (3.4-5.0); CALCIUM 8.9 mg/dl (8.5-10.1); CREATININE 1.09 mg/dl (0.60-1.20); POTASSIUM 3.9 mmol/L (3.5-5.1)
--- NOTE | 2017-09-19 11:01 | DIAGNOSTIC IMAGING REPORT ---
CHEST ONE VIEW PORTABLE CLINICAL HISTORY: 82 years-old Female presenting with s/p chest tube. TECHNIQUE: Portable upright AP view of the chest was obtained. COMPARISON: 09/19/2017 at 6:50 AM. FINDINGS: Interval placement of a large bore left pleural drain positioned at the left base. Atherosclerosis of the aortic arch. Cardiac silhouette normal in size. Significant interval decrease in left lower lobe atelectasis. Significant decrease in left basilar predominant pneumothorax. Lungs overall remain hyperinflated with relative lucency at the upper lobes.. Osteopenia suspected. Upper abdomen normal. IMPRESSION: 1. Large bore left pleural drain positioned at the left base with significant decrease in left lower lobe atelectasis and left pneumothorax. Electronically signed by: Kingsley Claros M.D. 09/19/2017 11:00 AM Dictated Date/Time: 09/19/2017 10:58 AM
[2017-09-19 11:05] LABS: TOTAL PROTEIN 6.5 gm/dl (6.4-8.2)
--- NOTE | 2017-09-19 11:25 | SURGERY PROGRESS NOTE ---
DATE: 09/19/2017 SUBJECTIVE: Ms. Florentino was seen today. Her chest x-ray shows she has had an increasing size of her pneumothorax. She is also having a bit more pain and coughing a bit more. She really has not desaturated much, although she is still requiring oxygen. I had a long talk with the patient and her son. I think we should insert a chest tube. I will use a small 20 Tr[place] chest tube and will do it under ultrasound guidance. I explained this to the patient. She is an RN and agreeable.
[2017-09-19] MEDS: CHOLESTYRAMINE LIGHT 4 GM PKT PO SCH ×2 (11:32→19:57)
--- NOTE | 2017-09-19 11:39 | Progress Note ---
Internal Med Progress Note Date of Service: Sep 19, 2017. Provider Documentation: Subjective: patient is s/p left chest tube placement today by CT surgery Physical Exam General Appearance: no distress Head: normocephalic, atraumatic Eyes: normal inspection, sclerae normal ENT: normal ENT inspection, hearing grossly normal, pharynx normal Neck: supple, thyroid normal, trachea midline Respiratory/Chest: chest tube placed in left posterior back, good air entry, no wheezing Cardiovascular: regular rate, rhythm Abdomen/GI: non tender, soft, no organomegaly Back: normal inspection Extremities/Musculoskelatal: normal inspection, no calf tenderness, no pedal edema Neurologic/Psych: no motor/sensory deficits, alert, normal mood/affect, oriented x 3 Skin: normal color, warm/dry ASSESSMENT & PLAN: Admission CXR 09/17/17: The chest has an emphysematous configuration. There is a left-sided pneumothorax with maximal pleural separation of 20 mm. There is no overt failure. Left basilar airspace opacities are likely atelectatic. There is mild blunting of the right lateral costophrenic angle. IMPRESSION: Left-sided pneumothorax with pleural separation of 20 mm LEFT PNEUMOTHORAX. s/p left chest tube placement on 09/19/[address] surgery Post chest tube CXR 09/19/17: Large bore left pleural drain positioned at the left base with significant decrease in left lower lobe atelectasis and left pneumothorax Appreciate further CT surgery consultation recommendations on management of the chest tube COPD EXACERBATION Patient does not require supplemental O2 at home Titrate supplemental O2 as tolerated to maintain SaO2 between 88 and 92% Continue with IV steroids Patient started on azithromycin and ceftriaxone Hypothyroidism: Continue levothyroxine HTN: Continue home dose amlodipine, hctz, lopressor Hypokalemia: resolved after potassium repletion on this admission Tobacco use disorder: Smoking cessation ordered and advised Diarrhea: -H/o colon cancer s/p resection -Cont home dose Prevalite Anemia (iron deficiency, b12 deficiency): -Has a history of BOB and follows with hematology for IV iron injections -Cont Vit b12, folate supplementation -Monitor CBC s/p chest tube SCD ppx Vital Signs: Date Time Temp Pulse Resp B/P (MAP) Pulse Ox O2 Delivery O2 Flow Rate FiO2 09/19/17 11:21 81 18 96 Nasal Cannula 3.0 09/19/17 08:03 92 Nasal Cannula 3.0 09/19/17 07:49 36.7 89 18 168/81 (110) 93 3.0 09/19/17 07:31 80 18 93 Nasal Cannula 3.0 09/19/17 04:00 Nasal Cannula 3.0 09/19/17 03:44 36.5 82 18 133/68 (89) 94 Nasal Cannula 3.0 09/19/17 00:00 Nasal Cannula 3.0 09/18/17 23:44 36.7 86 20 122/66 (84) 96 Nasal Cannula 3.0 09/18/17 21:05 37.0 90 20 92 3.0 09/18/17 20:00 36.6 104 20 129/84 (99) 91 Nasal Cannula 3.0 09/18/17 20:00 Nasal Cannula 3.0 09/18/17 19:05 90 20 92 Nasal Cannula 3.0 09/18/17 16:00 92 Nasal Cannula 3.0 09/18/17 15:45 37.0 83 18 115/70 (85) 92 Nasal Cannula 3.0 09/18/17 15:17 85 93 09/18/17 14:37 76 20 92 Nasal Cannula 3.0 09/18/17 12:02 Nasal Cannula 3.0 09/18/17 11:41 36.7 78 23 147/78 (101) 92 Nasal Cannula 2.0 Lab Results: Results Past 24 Hours Test 09/19/17 09:53 Range/Units White Blood Count 13.56 4.8-10.8 K/uL Red Blood Count 4.27 4.2-5.4 M/uL Hemoglobin 13.3 12.0-16.0 g/dL Hematocrit 39.4 37-47 % Mean Corpuscular Volume 92.3 80-100 fL Mean Corpuscular Hemoglobin 31.1 25-34 pg Mean Corpuscular Hemoglobin Concent 33.8 32-36 g/dl Platelet Count 142 130-400 K/uL Mean Platelet Volume 9.8 7.4-10.4 fL Neutrophils (%) (Auto) 94.5 % Lymphocytes (%) (Auto) 2.6 % Monocytes (%) (Auto) 2.7 % Eosinophils (%) (Auto) 0.0 % Basophils (%) (Auto) 0.0 % Neutrophils # (Auto) 12.81 1.4-6.5 K/uL Lymphocytes # (Auto) 0.35 1.2-3.4 K/uL Monocytes # (Auto) 0.37 0.11-0.59 K/uL Eosinophils # (Auto) 0.00 0-0.5 K/uL Basophils # (Auto) 0.00 0-0.2 K/uL RDW Standard Deviation 44.5 36.4-46.3 fL RDW Coefficient of Variation 13.3 11.5-14.5 % Immature Granulocyte % (Auto) 0.2 % Immature Granulocyte # (Auto) 0.03 0.00-0.02 K/uL Sodium Level 137 136-145 mmol/L Potassium Level 3.9 3.5-5.1 mmol/L Chloride Level 102 98-107 mmol/L Carbon Dioxide Level 27 21-32 mmol/L Anion Gap 8.0 3-11 mmol/L Blood Urea Nitrogen 27 7-18 mg/dl Creatinine 1.09 0.60-1.20 mg/dl Est Creatinine Clear Calc Drug Dose 28.4 ml/min Estimated GFR () 54.4 Estimated GFR (Non- 46.9 BUN/Creatinine Ratio 24.5 10-20 Random Glucose 128 70-99 mg/dl Calcium Level 8.9 8.5-10.1 mg/dl Total Bilirubin 0.7 0.2-1 mg/dl Aspartate Amino Transf (AST/SGOT) 26 15-37 U/L Alanine Aminotransferase (ALT/SGPT) 22 12-78 U/L Alkaline Phosphatase 72 45-117 U/L Total Protein 6.5 6.4-8.2 gm/dl Albumin 3.3 3.4-5.0 gm/dl Globulin 3.2 2.5-4.0 gm/dl Albumin/Globulin Ratio 1.0 0.9-2
[2017-09-19] MEDS ORDERED: ACETAMINOPHEN 325 MG TAB PO PRN (11:45)
--- NOTE | 2017-09-19 12:56 | OPERATIVE REPORT ---
DATE OF OPERATION: 09/19/2017 PREOPERATIVE DIAGNOSIS: Spontaneous left pneumothorax. POSTOPERATIVE DIAGNOSIS: Same. PROCEDURE: Insertion of a left 20-Burmese chest tube under ultrasound guidance. SURGEON: Dr. Bell. ANESTHESIA: Local. 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 She presented with spontaneous pneumothorax 2 days ago, but it was small and I elected to watch this. She was not enthralled with getting a chest tube inserted. I followed her and did not think that her chest x-ray yesterday looked much different, but today's basilar component is much larger. She has also become more symptomatic. For this reason, I elected to proceed with insertion of a small chest tube. DESCRIPTION OF PROCEDURE: After appropriate consent had been signed and a timeout had been called, the patient was placed in right lateral decubitus position. The left chest prepped and draped in usual sterile fashion. After using ultrasound to ildefonso an area that we had a nice window. A 25 gauge needle, 1% Xylocaine was used to anesthetize the skin and subcutaneous tissues and a larger needle was used to anesthetize the intercostal muscles and the pleura. A guidewire was inserted through the needle and we obtained air and the needle removed. A small dilator was used to gently dilate this up and then removed. I did direct this inferiorly as I was afraid there may be attachments superiorly. A 20-Burmese chest tube with an inner cannula was placed over the guidewire without difficulty and was directed posteriorly and medially. There was a brooks of air. I sutured in at about 10 cm. We had good fluctuation. It should be noted that this incision was quite small and just big enough for this 20-Burmese chest tube. She had a small air leak and at the conclusion her x-ray showed essentially total expansion of the lung. She tolerated it quite well. Antimicrobial dressings are placed. I attest to the content of the Intraoperative Record and any orders documented therein. Any exception s are noted below.
[2017-09-19] MEDS: CEFTRIAXONE SOD INJ 1 GM in DEXTROSE 5% ADD-VANTAGE 50ML 50 ML IV SCH (13:34)
[2017-09-19] MEDS: OXYCODONE HCL IR 5 MG TAB (IMMEDIATE RELEASE) PO PRN ×3 (13:34→22:05)
--- NOTE | 2017-09-19 16:34 | PULMONARY PROGRESS NOTE ---
DATE: 09/19/2017 CHIEF COMPLAINT: COPD/spontaneous pneumothorax. 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 Bell this morning, feels infinitely better. She is having a great deal of left-sided chest discomfort and supplemented with oxygen. She was sent home at a close to 20 mm separation at the left apex before the chest tube was inserted. She had a close to [id number] smoking history. For details of past medical history, medications, family and social history, I refer you to Khris Zhang's well-outlined dictation. PHYSICAL EXAMINATION: GENERAL: Well-developed, thin, cachectic white female in no obvious respiratory distress currently. VITAL SIGNS: Temperature 36.7, pulse 82 and regular, respiratory rate 18, blood pressure 129/73, O2 saturation 92% on 3 liters. SKIN: Without lesion. HEENT: Atraumatic, normocephalic. PERRLA, EOMI. Conjunctivae pale. Sclerae nonicteric. Fundi poorly visualized. NECK: Veins not distended at 45 degrees. No adenopathy. CHEST: Markedly decreased breath sounds with marked prolongation of the expiratory phase and expiratory wheeze heard at the left base. CARDIAC: Regular rhythm. I do not appreciate a gallop. ABDOMEN: Soft, scaphoid. EXTREMITIES: No pedal edema, clubbing or cyanosis. NEUROLOGIC: Intact. No lateralizing signs. OVERALL ASSESSMENT: An 82-year-old with close to a [id number] smoking history with severe end-stage chronic obstructive pulmonary disease who presents with spontaneous pneumothorax, presumably from a ruptured bleb at the apex, status post closed tube thoracostomy with virtually complete expansion of the left lung, currently being treated with IV ceftriaxone and IV methylprednisolone along with aerosolized bronchodilator. I do not discern an air leak currently and hopefully chest tube can be removed within 48-72 hours if the air leak totally resolves. Unfortunately, this event can be repeated and if recurrent spontaneous pneumothoraces occur, especially in a patient with limited to virtually no ventilatory reserve then a VATS procedure with bleb resection and possible talc pleurodesis will be indicated.
[2017-09-20] VITALS (14 sets, daily range): BP systolic 120–172; BP diastolic 69–90; PULSE 72–99; TEMP 36.2–36.9; O2SAT 91–99
[2017-09-20] MEDS ORDERED: MoRPHine SULFATE 2 MG/ML CARP ONE (04:19)
[2017-09-20] MEDS ORDERED: MoRPHine SULFATE 2 MG/ML CARP IV STA (04:23)
[2017-09-20] MEDS: METHYLPREDNISOLONE IV 40 MG in SYRINGE 0 ML IV SCH ×3 (06:05→21:54)
[2017-09-20] MEDS: LEVOTHYROXINE 88 MCG TAB PO SCH (06:05)
--- NOTE | 2017-09-20 07:35 | DIAGNOSTIC IMAGING REPORT ---
CHEST ONE VIEW PORTABLE CLINICAL HISTORY: s/p VATS postoperative evaluation COMPARISON STUDY: 09/19/2017 FINDINGS: Stable appearance to a left basilar chest tube. No significant pneumothorax. Baseline interstitial change throughout both hemithoraces considered stable. Decrease in size of a trace residual left apical pneumothorax with a maximum current pleural separation of 3 mm. IMPRESSION: Improved exam. Trace residual left apical pneumothorax with a pleural separation at 3 mm. Mild chronic interstitial change bilaterally The above report was generated using voice recognition software. It may contain grammatical, syntax or spelling errors. Electronically signed by: Dominguez Mendez M.D. 09/20/2017 7:34 AM Dictated Date/Time: 09/20/2017 7:33 AM
[2017-09-20] MEDS: ALBUT/IPRATROP 3MG/0.5MG NEB 3 ML VIAL INH SCH ×4 (07:37→19:15)
[2017-09-20 08:17] LABS: HEMATOCRIT 39.8 % (37-47); HEMOGLOBIN 13.6 g/dL (12.0-16.0); IG# 0.02 K/uL (0.00-0.02); LYMPH % 5.6 %; LYMPH ABS # 0.56 K/uL (1.2-3.4); MEAN CELL VOLUME 91.9 fL (80-100); MEAN CORPUSCULAR HEMOGLOBIN 31.4 pg (25-34); MEAN CORPUSCULAR HGB CONC 34.2 g/dl (32-36); MEAN PLATELET VOLUME 9.7 fL (7.4-10.4); MONO % 5.3 %; MONO ABS # 0.53 K/uL (0.11-0.59); NEUT % 88.9 %; NEUT ABS # 8.98 K/uL (1.4-6.5); PLATELET COUNT 143 K/uL (130-400); RED CELL DISTRIBUTION WIDTH CV 13.2 % (11.5-14.5); RED CELL DISTRIBUTION WIDTH SD 44.5 fL (36.4-46.3); WHITE BLOOD COUNT 10.09 K/uL (4.8-10.8)
[2017-09-20] MEDS: CYANOCOBALAMIN 500 MCG TAB (VIT B-12) PO SCH (08:56)
[2017-09-20] MEDS: CHOLECALCIFEROL 1000 INTER.UNIT TAB PO SCH (08:56)
[2017-09-20] MEDS: HYDROCHLOROTHIAZIDE 25 MG TAB PO SCH (08:57)
[2017-09-20] MEDS: AZITHROMYCIN 250 MG TAB PO SCH (08:57)
[2017-09-20 08:58] LABS: ALBUMIN 3.1 gm/dl (3.4-5.0); CREATININE 0.69 mg/dl (0.60-1.20); POTASSIUM 3.8 mmol/L (3.5-5.1); TOTAL PROTEIN 5.9 gm/dl (6.4-8.2)
[2017-09-20] MEDS: METOPROLOL TARTRATE 50 MG TAB PO SCH ×2 (08:58→20:28)
[2017-09-20] MEDS: ASCORBIC ACID 500 MG TAB PO SCH (08:58)
[2017-09-20] MEDS: POTASSIUM CHLORIDE 20 MEQ TABCR PO SCH (08:58)
[2017-09-20] MEDS: AMLODIPINE BESYLATE 5 MG TAB PO SCH (08:59)
[2017-09-20] MEDS: CHOLESTYRAMINE LIGHT 4 GM PKT PO SCH ×2 (10:00→21:54)
--- NOTE | 2017-09-20 10:39 | SURGERY PROGRESS NOTE ---
DATE: 09/20/2017 SUBJECTIVE: Mr. Florentino was seen today. She has tolerated his chest tube very nicely. Her x-ray shows essentially total reexpansion of her lung. This very thin lucency at the top of the pleural cavity may or may not be a pneumothorax. Anyway, she has no air leak. I think she looks quite good. Her pain control has been very good. She is ambulating in the hallway. I am going to keep her chest tube in for at least another 24 hours. We may want to remove it tomorrow. I am going to order a CT scan today to assess for any large bullae or a mass.
--- NOTE | 2017-09-20 11:11 | DIAGNOSTIC IMAGING REPORT ---
(CHEST) THORAX WITHOUT CT DOSE: 223.64 mGy.cm HISTORY: Emphysematous change parenchymal abnormalities TECHNIQUE: Multiaxial CT images of the chest were performed without contrast. A dose lowering technique was utilized adhering to the principles of ALARA. COMPARISON: None. FINDINGS: Mild bilateral apical fibrotic change. Very small left apical pneumothorax. Moderate bilateral emphysematous change. Several small blebs throughout both hemithoraces. Slight interstitial and peribronchial prominence. No well-defined focal infiltrate. 3 mm calcified granuloma right middle lobe transaxial image 180. Irregular lesion marginated 6 mm pleural-based nodule right lower lobe transaxial image 204. Left-sided chest tube with mild localized subcutaneous emphysematous-type change. Several small basilar bleb-like changes with minimal dependent basilar atelectatic change. Tortuosity and ectasia thoracic aorta. Trace pleural fluid right base. IMPRESSION: 1. Left-sided chest tube in position with a small amount of subcutaneous emphysematous change of the left lateral chest wall. 2. Very small residual left apical pneumothorax. 3. Moderate emphysematous change with small multifocal blebs bilaterally. 4. 6 mm slightly spiculated lesion peripheral aspect right lower lobe image 206. 5. Follow-up of this nodule should be performed per clinical suspicion or Fleischner criteria. 6. Slight chronic interstitial prominence with no evidence for a focal infiltrate. Please refer to below summary of Fleischner criteria recommendations for follow-up of incidental CT nodules (Jorge Campos, Guidelines for management of small pulmonary nodules detected on CT scans: A statement from the Fleischner Society, Radiology 237: [id number] 2002.) SOLID NODULES Solitary nodule size: <6 mm * low risk patients: no follow-up needed * high risk patients: optional CT at 12 months Solitary nodule size: 6-8 mm * low risk patients: follow-up at 6-12 months, then consider further follow-up at 18-24 months * high risk patients: initial follow-up CT at 6-12 months and then at 18-24 months if no change Solitary nodule size: >8 mm * either low or high risk patients - consider follow-up CT at 3 months, and/or CT-PET, and/or biopsy Multiple nodules size: <6 mm * low risk patients: no routine follow-up * high risk patients: optional CT at 12 months Multiple nodules size: 6-8 mm * low risk patients: follow-up at 3-6 months, then consider further follow-up at 18-24 months * high risk patients: follow-up at 3-6 months, then at 18-24 months if no change Multiple nodules size: >8 mm * low risk patients: follow-up at 3-6 months, then consider further follow-up at 18-24 months * high risk patients: follow-up at 3-6 months, then at 18-24 months if no change Note: newly detected indeterminate nodule in persons 35 years of age or older. * low risk patients: minimal or absent history of smoking and/or other known risk factors * high risk patients: history of smoking or of other known risk factors (e.g. first degree relative with lung cancer, or exposure to asbestos, radon, uranium) * if a nodule up to 8 mm is partly solid or is ground glass further follow-up is required after 24 months to exclude possible slow growing adenocarcinoma (EDGAR) SUBSOLID NODULES Solitary pure ground-glass nodule * nodule size <6 mm - no CT follow-up required * nodule size >=6 mm - follow-up CT at 6-12 months, then every 2 years until 5 years Solitary part-solid nodule * nodule size <6 mm - no CT follow-up required * nodule size >=6 mm - follow-up CT at 3-6 months. If unchanged, and solid component remains <6 mm, then annual follow-up for 5 years Multiple subsolid nodules * nodule size <6 mm - follow-up CT at 3-6 months, consider further follow-up at 2 and 4 years if stable * nodule size >=6 mm - follow-up CT at 3-6 months, subsequent management based on the most suspicious nodule(s) The above report was generated using voice recognition software. It may contain grammatical, syntax or spelling errors. Electronically signed by: Dominguez Mendez M.D. 09/20/2017 11:09 AM Dictated Date/Time: 09/20/2017 11:02 AM
[2017-09-20] MEDS: CEFTRIAXONE SOD INJ 1 GM in DEXTROSE 5% ADD-VANTAGE 50ML 50 ML IV SCH (13:56)
[2017-09-20] MEDS: OXYCODONE HCL IR 5 MG TAB (IMMEDIATE RELEASE) PO PRN ×2 (15:52→21:54)
--- NOTE | 2017-09-20 16:54 | Progress Note ---
Internal Med Progress Note Date of Service: Sep 20, 2017. Provider Documentation: Subjective: Patient needed straight cath for urinary retention overnight. Patient does not report problems with chest tube today. Physical Exam General Appearance: no distress Head: normocephalic, atraumatic Eyes: normal inspection, sclerae normal ENT: normal ENT inspection, hearing grossly normal, pharynx normal Neck: supple, thyroid normal, trachea midline Respiratory/Chest: chest tube placed in left posterior back, good air entry, no wheezing Cardiovascular: regular rate, rhythm Abdomen/GI: non tender, soft, no organomegaly Back: normal inspection Extremities/Musculoskelatal: normal inspection, no calf tenderness, no pedal edema Neurologic/Psych: no motor/sensory deficits, alert, normal mood/affect, oriented x 3 Skin: normal color, warm/dry ASSESSMENT & PLAN: Admission CXR 09/17/17: The chest has an emphysematous configuration. There is a left-sided pneumothorax with maximal pleural separation of 20 mm. There is no overt failure. Left basilar airspace opacities are likely atelectatic. There is mild blunting of the right lateral costophrenic angle. IMPRESSION: Left-sided pneumothorax with pleural separation of 20 mm LEFT PNEUMOTHORAX. -s/p left chest tube placement on 09/19/[address] surgery -Post chest tube CXR 09/19/17: Large bore left pleural drain positioned at the left base with significant decrease in left lower lobe atelectasis and left pneumothorax -follow up CT chest 09/20/17: Slight interstitial and peribronchial prominence. No well-defined focal infiltrate. 3 mm calcified granuloma right middle lobe - transaxial image 180. Irregular lesion marginated 6 mm pleural-based nodule right lower lobe transaxial image 204. Left-sided chest tube with mild localized subcutaneous emphysematous-type change. Several small basilar bleb- like changes with minimal dependent basilar atelectatic change. Tortuosity and ectasia thoracic aorta. Trace pleural fluid right base. -Appreciate further CT surgery consultation recommendations on management of the chest tube Presence of pulmonary nodules -outpatient follow up imaging COPD EXACERBATION Patient does not require supplemental O2 at home Titrate supplemental O2 as tolerated to maintain SaO2 between 88 and 92% Continue with IV steroids Patient on azithromycin and ceftriaxone, continue for now as patient has chest tube which is a foreign body Hypothyroidism: Continue levothyroxine HTN: Continue home dose amlodipine, hctz, lopressor Hypokalemia: resolved after potassium repletion on this admission Tobacco use disorder: Smoking cessation ordered and advised Diarrhea: -H/o colon cancer s/p resection -Cont home dose Prevalite Anemia (iron deficiency, b12 deficiency): -Has a history of BOB and follows with hematology for IV iron injections -Cont Vit b12, folate supplementation -Monitor CBC s/p chest tube SCD ppx Vital Signs: Date Time Temp Pulse Resp B/P (MAP) Pulse Ox O2 Delivery O2 Flow Rate FiO2 09/20/17 15:24 36.7 89 20 158/82 (107) 91 Room Air 09/20/17 15:13 81 16 92 Room Air 09/20/17 12:00 96 Room Air 09/20/17 11:09 80 18 97 Nasal Cannula 2.0 09/20/17 11:08 36.4 77 18 151/78 (102) 93 2.0 09/20/17 08:00 98 Nasal Cannula 2.0 09/20/17 07:48 36.9 93 18 172/90 (117) 98 09/20/17 07:41 81 18 98 Nasal Cannula 4.0 09/20/17 05:17 36.3 72 20 148/87 (107) 99 Nasal Cannula 4.0 09/20/17 04:00 Nasal Cannula 2.0 09/20/17 01:18 36.2 72 19 134/75 (94) 99 Nasal Cannula 3.0 09/20/17 00:00 Nasal Cannula 2.0 09/19/17 20:00 Nasal Cannula 2.0 09/19/17 19:29 36.5 103 18 139/79 (99) 95 Nasal Cannula 2.0 09/19/17 19:28 82 18 93 Nasal Cannula 2.0 Lab Results: Results Past 24 Hours Test 09/20/17 08:00 Range/Units White Blood Count 10.09 4.8-10.8 K/uL Red Blood Count 4.33 4.2-5.4 M/uL Hemoglobin 13.6 12.0-16.0 g/dL Hematocrit 39.8 37-47 % Mean Corpuscular Volume 91.9 80-100 fL Mean Corpuscular Hemoglobin 31.4 25-34 pg Mean Corpuscular Hemoglobin Concent 34.2 32-36 g/dl Platelet Count 143 130-400 K/uL Mean Platelet Volume 9.7 7.4-10.4 fL Neutrophils (%) (Auto) 88.9 % Lymphocytes (%) (Auto) 5.6 % Monocytes (%) (Auto) 5.3 % Eosinophils (%) (Auto) 0.0 % Basophils (%) (Auto) 0.0 % Neutrophils # (Auto) 8.98 1.4-6.5 K/uL Lymphocytes # (Auto) 0.56 1.2-3.4 K/uL Monocytes # (Auto) 0.53 0.11-0.59 K/uL Eosinophils # (Auto) 0.00 0-0.5 K/uL Basophils # (Auto) 0.00 0-0.2 K/uL RDW Standard Deviation 44.5 36.4-46.3 fL RDW Coefficient of Variation 13.2 11.5-14.5 % Immature Granulocyte % (Auto) 0.2 % Immature Granulocyte # (Auto) 0.02 0.00-0.02 K/uL Sodium Level 138 136-145 mmol/L Potassium Level 3.8 3.5-5.1 mmol/L Chloride Level 98 98-107 mmol/L Carbon Dioxide Level 31 21-32 mmol/L Anion Gap 8.0 3-11 mmol/L Blood Urea Nitrogen 26 7-18 mg/dl Creatinine 0.69 0.60-1.20 mg/dl Est Creatinine Clear Calc Drug Dose 46.4 ml/min Estimated GFR () 93.3 Estimated GFR (Non- 80.5 BUN/Creatinine Ratio 37.8 10-20 Random Glucose 100 70-99 mg/dl Calcium Level 9.0 8.5-10.1 mg/dl Total Bilirubin 0.9 0.2-1 mg/dl Aspartate Amino Transf (AST/SGOT) 35 15-37 U/L Alanine Aminotransferase (ALT/SGPT) 31 12-78 U/L Alkaline Phosphatase 62 45-117 U/L Total Protein 5.9 6.4-8.2 gm/dl Albumin 3.1 3.4-5.0 gm/dl Globulin 2.8 2.5-4.0 gm/dl Albumin/Globulin Ratio 1.1 0.9-2 Microbiology Results 09/20/17 C.difficile Toxin B Gene (PCR) - Final, Complete No C. difficile toxin B gene detected
[2017-09-21] VITALS (12 sets, daily range): BP systolic 132–174; BP diastolic 70–80; PULSE 70–97; TEMP 36.3–36.9; O2SAT 90–99
[2017-09-21] MEDS: LEVOTHYROXINE 88 MCG TAB PO SCH (05:43)
[2017-09-21] MEDS: METHYLPREDNISOLONE IV 40 MG in SYRINGE 0 ML IV SCH ×2 (05:43→14:08)
[2017-09-21 06:32] LABS: HEMATOCRIT 38.6 % (37-47); HEMOGLOBIN 13.3 g/dL (12.0-16.0); IG# 0.02 K/uL (0.00-0.02); LYMPH % 5.1 %; MEAN CELL VOLUME 91.7 fL (80-100); MEAN CORPUSCULAR HEMOGLOBIN 31.6 pg (25-34); MEAN CORPUSCULAR HGB CONC 34.5 g/dl (32-36); MEAN PLATELET VOLUME 9.9 fL (7.4-10.4); MONO % 4.2 %; MONO ABS # 0.33 K/uL (0.11-0.59); NEUT % 90.4 %; NEUT ABS # 7.03 K/uL (1.4-6.5); PLATELET COUNT 142 K/uL (130-400); RED CELL DISTRIBUTION WIDTH CV 13.4 % (11.5-14.5); RED CELL DISTRIBUTION WIDTH SD 44.7 fL (36.4-46.3); WHITE BLOOD COUNT 7.78 K/uL (4.8-10.8)
[2017-09-21 07:10] LABS: CALCIUM 8.6 mg/dl (8.5-10.1); CREATININE 0.81 mg/dl (0.60-1.20)
[2017-09-21 07:13] LABS: TOTAL PROTEIN 5.7 gm/dl (6.4-8.2)
[2017-09-21] MEDS: ALBUT/IPRATROP 3MG/0.5MG NEB 3 ML VIAL INH SCH ×4 (07:37→19:17)
[2017-09-21] MEDS: AZITHROMYCIN 250 MG TAB PO SCH (08:09)
[2017-09-21] MEDS: CHOLECALCIFEROL 1000 INTER.UNIT TAB PO SCH (08:09)
[2017-09-21] MEDS: CYANOCOBALAMIN 500 MCG TAB (VIT B-12) PO SCH (08:09)
[2017-09-21] MEDS: ASCORBIC ACID 500 MG TAB PO SCH (08:10)
[2017-09-21] MEDS: POTASSIUM CHLORIDE 20 MEQ TABCR PO SCH (08:10)
[2017-09-21] MEDS: METOPROLOL TARTRATE 50 MG TAB PO SCH ×2 (08:10→21:42)
[2017-09-21] MEDS: HYDROCHLOROTHIAZIDE 25 MG TAB PO SCH (08:10)
[2017-09-21] MEDS: AMLODIPINE BESYLATE 5 MG TAB PO SCH (08:10)
--- NOTE | 2017-09-21 08:29 | DIAGNOSTIC IMAGING REPORT ---
CHEST ONE VIEW PORTABLE CLINICAL HISTORY: 82 years-old Female presenting with tube removal . TECHNIQUE: Portable upright AP view of the chest was obtained. COMPARISON: 09/20/2017. FINDINGS: Interval removal of the large bore left pleural drain. Atherosclerosis of aortic arch. Cardiac silhouette enlarged. Lungs remain hyperinflated. Minimal basilar opacities. Slight interval increase in the small left apical pneumothorax, with a pleural separation of 11 mm, previously 2-3 mm. No pleural effusion. Osteopenia suspected. IMPRESSION: 1. Status post removal of large bore left pleural drain with slight increase size of the small left apical pneumothorax. 2. Emphysema. 3. Bibasilar atelectasis or scarring. Electronically signed by: Kingsley Claros M.D. 09/21/2017 8:27 AM Dictated Date/Time: 09/21/2017 8:26 AM
--- NOTE | 2017-09-21 09:49 | SURGERY PROGRESS NOTE ---
DATE: 09/21/2017 SUBJECTIVE: Ms. Florentino was seen today. I reviewed her CT scan. She has about an 8 mm nodule in the peripheral right lung periphery. She is quite concerned about this when I told her. She really does not have much of a pneumothorax at all. She does have some bullous disease at the apical aspect of both upper lobes; however, she has no air leak and no fluid drainage. I am going to remove her chest tube today. I had a long talk with her about our findings and I believe that she is going to be able to be discharged tomorrow or so if her x-ray looks good and she is good from a rhythm standpoint. I will follow her up in the next week or so and we will talk about CT or perhaps even a PET. ROBERT
[2017-09-21] MEDS: CHOLESTYRAMINE LIGHT 4 GM PKT PO SCH ×2 (10:00→21:42)
--- NOTE | 2017-09-21 13:58 | DIAGNOSTIC IMAGING REPORT ---
CHEST 2 VIEWS ROUTINE HISTORY: follow up post chest tube imaging COMPARISON: Chest 09/21/2017. FINDINGS: No significant change in the small left apical pneumothorax. This demonstrates a pleural gap of 11 mm. Advanced emphysema. The heart is stable in size. No new focal lung consolidations. No evidence for pulmonary edema. Stable blunting of the costophrenic sulci. IMPRESSION: Stable small left pneumothorax. Electronically signed by: Morales Paz M.D. 09/21/2017 1:57 PM Dictated Date/Time: 09/21/2017 1:55 PM
[2017-09-21] MEDS: CEFTRIAXONE SOD INJ 1 GM in DEXTROSE 5% ADD-VANTAGE 50ML 50 ML IV SCH (14:08)
--- NOTE | 2017-09-21 14:57 | Progress Note ---
Progress Note Date of Service Sep 21, 2017. Progress Note chest tube removed without difficulty. Dressing applied.
--- NOTE | 2017-09-21 18:37 | Pulmonology Progress Note ---
Pulmonary Progress Note Date of Service Sep 21, 2017. Attending Dr. Arambula Subjective Patient doing well sitting up in bed able to have complete sentences with no complain of shortness of Breath: Objective Patient is able to sit up in bed have complete sentences/conversation with no signs of respiratory insufficiency: Vital signs: SaO2 on room air 90% Respiratory: Decreased breath sounds bilaterally Abdomen: Positive bowel sounds soft nontender Cardiac: S1-S2 regular rate and rhythm Assessment & Plan 82-year-old female admitted with spontaneous pneumothorax and found to have 7 mm right lower lobe solitary nodule: 1. Pneumothorax: This time the patient has undergone tube thoracotomy with re- expansion of the lung and clinically is doing well. I did speak to the patient and family at length and re-emphasized the necessity to follow-up with this particular process in even the possibility of this recurring requiring more advanced surgical intervention such as bullectomy and pleurodesis. 2. Pulmonary Nodule: Patient is at high risk for primary lung carcinoma and has a 7 mm right lower lobe pulmonary nodule. Per the Fleischner 2017 guidelines she will require follow-up at a 6-12 month window and then 18-24 months window. Due to this I have asked the patient to come to the [facility] for further evaluation of follow-up on this issue. At that time we should perform pulmonary function testing. 3. COPD: We do not have previous pulmonary function studies to determine the extent of the underlying damage to this patient's lung. I do suggest she have a 2 step prior to discharge to evaluate for oxygen necessity. Data Medications: Current Inpatient Medications Medications (Trade) Dose Ordered Sig/Rosa Isela Route Start Time Stop Time Status Last Admin Dose Admin Methylprednisolone Sodium Succinate 40 mg/Syringe 0.64 ml @ 1.5 mls/min Q8H IV 09/17/17 22:00 10/17/17 21:59 09/21/17 14:08 1.5 MLS/MIN Ceftriaxone Sodium 1 gm/ Dextrose 50 ml @ 100 mls/hr Q24H IV 09/18/17 14:00 09/25/17 13:59 09/21/17 14:08 100 MLS/HR Albuterol/ Ipratropium (Duoneb) 3 ml QIDR INH 09/17/17 16:00 10/17/17 15:59 09/21/17 16:17 3 ML Amlodipine Besylate (Norvasc Tab) 5 mg DAILY PO 09/18/17 09:00 10/18/17 08:59 09/21/17 08:10 5 MG Cyanocobalamin (Vitamin B-12 Tab) 1,000 mcg DAILY PO 09/18/17 09:00 10/18/17 08:59 09/21/17 08:09 1,000 MCG Folic Acid (Folvite Tab) 1 mg HS PO 09/17/17 21:00 10/17/17 20:59 09/20/17 20:28 1 MG Levothyroxine Sodium (Synthroid Tab) 88 mcg DAILYBB PO 09/18/17 06:00 10/18/17 06:59 09/21/17 05:43 88 MCG Metoprolol Tartrate (Lopressor Tab) 50 mg BID PO 09/17/17 21:00 10/17/17 20:59 09/21/17 08:10 50 MG Ascorbic Acid (Vitamin C Tab) 500 mg DAILY PO 09/18/17 09:00 10/18/17 08:59 09/21/17 08:10 500 MG Cholecalciferol (Vitamin D Tab) 2,000 inter.unit DAILY PO 09/18/17 09:00 10/18/17 08:59 09/21/17 08:09 2,000 INTER.UNIT Cholestyramine Resin (Questran Powder Light) 4 gm BID@1000,2200 PO 09/17/17 22:00 10/17/17 21:59 09/20/17 21:54 4 GM Hydrochlorothiazide (Hydrochlorothiazide Tab) 12.5 mg DAILY PO 09/18/17 09:00 10/18/17 08:59 09/21/17 08:10 12.5 MG Miscellaneous Information (Order Awaiting Action) 1 ea QS N/A 09/18/17 00:00 10/18/17 00:00 Potassium Chloride (Klor-Con Tab) 20 meq QAM PO 09/18/17 09:00 10/18/17 08:59 09/21/17 08:10 20 MEQ Oxycodone HCl (Roxicodone Immediate Rel Tab) 5 mg Q3RWA PRN PO 09/19/17 11:00 10/03/17 10:59 09/20/17 21:54 5 MG Acetaminophen (Tylenol Tab) 650 mg Q4H PRN PO 09/19/17 11:45 10/19/17 11:44 09/21/17 07:18 650 MG I & O: 24-Hour Column 09/22/17 08:00 Intake Total 400 ml Output Total 275 ml Balance 125 ml Vital Signs: Date Time Temp Pulse Resp B/P (MAP) Pulse Ox O2 Delivery O2 Flow Rate FiO2 09/21/17 16:18 89 16 90 Room Air 09/21/17 15:51 36.8 85 16 132/80 (97) 93 Room Air 09/21/17 12:00 95 Room Air 09/21/17 11:23 81 16 95 Room Air 09/21/17 10:11 36.8 76 18 149/72 (97) 92 Room Air 09/21/17 08:00 92 Room Air 09/21/17 07:37 88 16 99 Room Air 09/21/17 07:05 36.9 79 18 174/76 (108) 92 Room Air 09/21/17 04:24 Room Air 09/21/17 03:47 36.7 70 16 138/70 (92) 92 Room Air 09/20/17 23:48 36.6 76 18 143/69 (93) 93 Room Air 09/20/17 20:10 36.6 99 20 120/73 (89) 92 Room Air 09/20/17 19:59 Room Air 2.0 Nasal Cannula 09/20/17 19:15 98 16 93 Room Air Laboratory Results: Last 24 Hours Test 09/21/17 06:01 White Blood Count 7.78 K/uL Red Blood Count 4.21 M/uL Hemoglobin 13.3 g/dL Hematocrit 38.6 % Mean Corpuscular Volume 91.7 fL Mean Corpuscular Hemoglobin 31.6 pg Mean Corpuscular Hemoglobin Concent 34.5 g/dl Platelet Count 142 K/uL Mean Platelet Volume 9.9 fL Neutrophils (%) (Auto) 90.4 % Lymphocytes (%) (Auto) 5.1 % Monocytes (%) (Auto) 4.2 % Eosinophils (%) (Auto) 0.0 % Basophils (%) (Auto) 0.0 % Neutrophils # (Auto) 7.03 K/uL Lymphocytes # (Auto) 0.40 K/uL Monocytes # (Auto) 0.33 K/uL Eosinophils # (Auto) 0.00 K/uL Basophils # (Auto) 0.00 K/uL RDW Standard Deviation 44.7 fL RDW Coefficient of Variation 13.4 % Immature Granulocyte % (Auto) 0.3 % Immature Granulocyte # (Auto) 0.02 K/uL Sodium Level 137 mmol/L Potassium Level 4.0 mmol/L Chloride Level 101 mmol/L Carbon Dioxide Level 30 mmol/L Anion Gap 6.0 mmol/L Blood Urea Nitrogen 33 mg/dl Creatinine 0.81 mg/dl Est Creatinine Clear Calc Drug Dose 39.5 ml/min Estimated GFR () 77.8 Estimated GFR (Non- 67.2 BUN/Creatinine Ratio 40.7 Random Glucose 95 mg/dl Calcium Level 8.6 mg/dl Total Bilirubin 0.7 mg/dl Aspartate Amino Transf (AST/SGOT) 30 U/L Alanine Aminotransferase (ALT/SGPT) 40 U/L Alkaline Phosphatase 68 U/L Total Protein 5.7 gm/dl Albumin 3.0 gm/dl Globulin 2.7 gm/dl Albumin/Globulin Ratio 1.1
--- NOTE | 2017-09-21 19:32 | Progress Note ---
Internal Med Progress Note Date of Service: Sep 21, 2017. Provider Documentation: Subjective: Patient s/p chest tube removal. Patient breathing on room air and speaking with nurse comfortably Physical Exam General Appearance: no distress Head: normocephalic, atraumatic Eyes: normal inspection, sclerae normal ENT: normal ENT inspection, hearing grossly normal, pharynx normal Neck: supple, thyroid normal, trachea midline Respiratory/Chest: good air entry, no wheezing Cardiovascular: regular rate, rhythm Abdomen/GI: non tender, soft, no organomegaly Back: normal inspection Extremities/Musculoskelatal: normal inspection, no calf tenderness, no pedal edema Neurologic/Psych: no motor/sensory deficits, alert, normal mood/affect, oriented x 3 Skin: normal color, warm/dry ASSESSMENT & PLAN: Admission CXR 09/17/17: The chest has an emphysematous configuration. There is a left-sided pneumothorax with maximal pleural separation of 20 mm. There is no overt failure. Left basilar airspace opacities are likely atelectatic. There is mild blunting of the right lateral costophrenic angle. IMPRESSION: Left-sided pneumothorax with pleural separation of 20 mm LEFT PNEUMOTHORAX. -s/p left chest tube placement on 09/19/[address] surgery -Post chest tube CXR 09/19/17: Large bore left pleural drain positioned at the left base with significant decrease in left lower lobe atelectasis and left pneumothorax -follow up CT chest 09/20/17: Slight interstitial and peribronchial prominence. No well-defined focal infiltrate. 3 mm calcified granuloma right middle lobe - transaxial image 180. Irregular lesion marginated 6 mm pleural-based nodule right lower lobe transaxial image 204. Left-sided chest tube with mild localized subcutaneous emphysematous-type change. Several small basilar bleb- like changes with minimal dependent basilar atelectatic change. Tortuosity and ectasia thoracic aorta. Trace pleural fluid right base. -chest tube removed on 09/21/17 and 2 consecutive CXR of a increase in the small left apical pneumothorax, with a pleural separation of 11 mm, previously 2-3 mm ; despite this increase in size patient clinically doing well, will repeat CXR on AM of 09/22/17 Presence of pulmonary nodules -outpatient follow up imaging COPD EXACERBATION Patient does not require supplemental O2 at home Titrate supplemental O2 as tolerated to maintain SaO2 between 88 and 92% IV steroids and azithromycin and ceftriaxone to be stopped on 09/21/17 Hypothyroidism: Continue levothyroxine HTN: Continue home dose amlodipine, hctz, lopressor Hypokalemia: resolved after potassium repletion on this admission Tobacco use disorder: Smoking cessation ordered and advised Diarrhea: -H/o colon cancer s/p resection -Cont home dose Prevalite Anemia (iron deficiency, b12 deficiency): -Has a history of BOB and follows with hematology for IV iron injections -Cont Vit b12, folate supplementation -Monitor CBC s/p chest tube SCD ppx Disposition: CT surgery had informed patient may go home by tomorrow on 09/22/17 but will repeat CXR on AM of 09/22/17 to rule out increase in the small left apical pneumothorax size Vital Signs: Date Time Temp Pulse Resp B/P (MAP) Pulse Ox O2 Delivery O2 Flow Rate FiO2 09/21/17 19:17 96 16 95 Room Air 09/21/17 16:18 89 16 90 Room Air 09/21/17 15:51 36.8 85 16 132/80 (97) 93 Room Air 09/21/17 12:00 95 Room Air 09/21/17 11:23 81 16 95 Room Air 09/21/17 10:11 36.8 76 18 149/72 (97) 92 Room Air 09/21/17 08:00 92 Room Air 09/21/17 07:37 88 16 99 Room Air 09/21/17 07:05 36.9 79 18 174/76 (108) 92 Room Air 09/21/17 04:24 Room Air 09/21/17 03:47 36.7 70 16 138/70 (92) 92 Room Air 09/20/17 23:48 36.6 76 18 143/69 (93) 93 Room Air 09/20/17 20:10 36.6 99 20 120/73 (89) 92 Room Air 09/20/17 19:59 Room Air 2.0 Nasal Cannula Lab Results: Results Past 24 Hours Test 09/21/17 06:01 Range/Units White Blood Count 7.78 4.8-10.8 K/uL Red Blood Count 4.21 4.2-5.4 M/uL Hemoglobin 13.3 12.0-16.0 g/dL Hematocrit 38.6 37-47 % Mean Corpuscular Volume 91.7 80-100 fL Mean Corpuscular Hemoglobin 31.6 25-34 pg Mean Corpuscular Hemoglobin Concent 34.5 32-36 g/dl Platelet Count 142 130-400 K/uL Mean Platelet Volume 9.9 7.4-10.4 fL Neutrophils (%) (Auto) 90.4 % Lymphocytes (%) (Auto) 5.1 % Monocytes (%) (Auto) 4.2 % Eosinophils (%) (Auto) 0.0 % Basophils (%) (Auto) 0.0 % Neutrophils # (Auto) 7.03 1.4-6.5 K/uL Lymphocytes # (Auto) 0.40 1.2-3.4 K/uL Monocytes # (Auto) 0.33 0.11-0.59 K/uL Eosinophils # (Auto) 0.00 0-0.5 K/uL Basophils # (Auto) 0.00 0-0.2 K/uL RDW Standard Deviation 44.7 36.4-46.3 fL RDW Coefficient of Variation 13.4 11.5-14.5 % Immature Granulocyte % (Auto) 0.3 % Immature Granulocyte # (Auto) 0.02 0.00-0.02 K/uL Sodium Level 137 136-145 mmol/L Potassium Level 4.0 3.5-5.1 mmol/L Chloride Level 101 98-107 mmol/L Carbon Dioxide Level 30 21-32 mmol/L Anion Gap 6.0 3-11 mmol/L Blood Urea Nitrogen 33 7-18 mg/dl Creatinine 0.81 0.60-1.20 mg/dl Est Creatinine Clear Calc Drug Dose 39.5 ml/min Estimated GFR () 77.8 Estimated GFR (Non- 67.2 BUN/Creatinine Ratio 40.7 10-20 Random Glucose 95 70-99 mg/dl Calcium Level 8.6 8.5-10.1 mg/dl Total Bilirubin 0.7 0.2-1 mg/dl Aspartate Amino Transf (AST/SGOT) 30 15-37 U/L Alanine Aminotransferase (ALT/SGPT) 40 12-78 U/L Alkaline Phosphatase 68 45-117 U/L Total Protein 5.7 6.4-8.2 gm/dl Albumin 3.0 3.4-5.0 gm/dl Globulin 2.7 2.5-4.0 gm/dl Albumin/Globulin Ratio 1.1 0.9-2
[2017-09-22] VITALS (18 sets, daily range): BP systolic 130–185; BP diastolic 81–94; PULSE 70–102; TEMP 35.8–36.8; O2SAT 90–99
[2017-09-22] MEDS: LEVOTHYROXINE 88 MCG TAB PO SCH (06:01)
[2017-09-22] MEDS: ALBUT/IPRATROP 3MG/0.5MG NEB 3 ML VIAL INH SCH ×4 (07:28→19:37)
[2017-09-22] MEDS: CHOLECALCIFEROL 1000 INTER.UNIT TAB PO SCH (08:07)
[2017-09-22] MEDS: ASCORBIC ACID 500 MG TAB PO SCH (08:07)
[2017-09-22] MEDS: POTASSIUM CHLORIDE 20 MEQ TABCR PO SCH (08:07)
[2017-09-22] MEDS: AMLODIPINE BESYLATE 5 MG TAB PO SCH (08:07)
[2017-09-22] MEDS: METOPROLOL TARTRATE 50 MG TAB PO SCH ×2 (08:07→22:18)
[2017-09-22] MEDS: HYDROCHLOROTHIAZIDE 25 MG TAB PO SCH (08:08)
[2017-09-22] MEDS: CYANOCOBALAMIN 500 MCG TAB (VIT B-12) PO SCH (08:08)
--- NOTE | 2017-09-22 08:18 | DIAGNOSTIC IMAGING REPORT ---
CHEST 2 VIEWS ROUTINE CLINICAL HISTORY: follow up post chest tube imaging dyspnea COMPARISON STUDY: 09/21/2017 FINDINGS: Moderate increase in volume of the left sided pneumothorax. Maximum pleural separation currently is 2.1 cm increased from 1.0 cm. Interstitial basilar changes slightly progressive on the left. Emphysematous change is stable. There is no midline shift of the cardiomediastinal silhouette. IMPRESSION: Mild increase in size of a left-sided pneumothorax now with a pleural separation of 2.1 cm. Stable to minimally progressive left lateral hemithoracic subcutaneous emphysematous change The above report was generated using voice recognition software. It may contain grammatical, syntax or spelling errors. Electronically signed by: Dmoinguez Mendez M.D. 09/22/2017 8:17 AM Dictated Date/Time: 09/22/2017 8:10 AM
[2017-09-22] MEDS: CHOLESTYRAMINE LIGHT 4 GM PKT PO SCH ×2 (10:00→22:00)
--- NOTE | 2017-09-22 10:46 | Progress Note ---
Subjective Date of Service: Sep 22, 2017. Subjective Pt evaluation today including: conversation w/ patient, physical exam, lab review, review of studies, review of inpatient medication list Saw/examined the patient in room 285 She is sitting comfortably on the side of the bed. States she was getting worsening shortness of breath with exertion. Oxygen reapplied via nasal cannula; she has no breathing difficulties while seated. Discussed chest x-ray results from this morning and the worsening pneumothorax - she is agreeable to further treatment plans/management Problem List Medical Problems: (1) Pneumothorax Status: Acute (2) Respiratory failure with hypoxia Status: Acute (3) SOB (shortness of breath) Status: Acute Review of Systems Constitutional: No fever, No chills, No weakness Respiratory: + dyspnea on exertion, No cough, No sputum, No wheezing, No shortness of breath, No dyspnea at rest, No hemoptysis Cardiac: + chest pain (pleuritic), No edema, No palpitations Medications Current Inpatient Medications Medications (Trade) Dose Ordered Sig/Rosa Isela Route Start Time Stop Time Status Last Admin Dose Admin Albuterol/ Ipratropium (Duoneb) 3 ml QIDR INH 09/17/17 16:00 10/17/17 15:59 09/22/17 07:28 3 ML Amlodipine Besylate (Norvasc Tab) 5 mg DAILY PO 09/18/17 09:00 10/18/17 08:59 09/22/17 08:07 5 MG Cyanocobalamin (Vitamin B-12 Tab) 1,000 mcg DAILY PO 09/18/17 09:00 10/18/17 08:59 09/22/17 08:08 1,000 MCG Folic Acid (Folvite Tab) 1 mg HS PO 09/17/17 21:00 10/17/17 20:59 09/21/17 21:41 1 MG Levothyroxine Sodium (Synthroid Tab) 88 mcg DAILYBB PO 09/18/17 06:00 10/18/17 06:59 09/22/17 06:01 88 MCG Metoprolol Tartrate (Lopressor Tab) 50 mg BID PO 09/17/17 21:00 10/17/17 20:59 09/22/17 08:07 50 MG Ascorbic Acid (Vitamin C Tab) 500 mg DAILY PO 09/18/17 09:00 10/18/17 08:59 09/22/17 08:07 500 MG Cholecalciferol (Vitamin D Tab) 2,000 inter.unit DAILY PO 09/18/17 09:00 10/18/17 08:59 09/22/17 08:07 2,000 INTER.UNIT Cholestyramine Resin (Questran Powder Light) 4 gm BID@1000,2200 PO 09/17/17 22:00 10/17/17 21:59 09/21/17 21:42 4 GM Hydrochlorothiazide (Hydrochlorothiazide Tab) 12.5 mg DAILY PO 09/18/17 09:00 10/18/17 08:59 09/22/17 08:08 12.5 MG Miscellaneous Information (Order Awaiting Action) 1 ea QS N/A 09/18/17 00:00 10/18/17 00:00 Potassium Chloride (Klor-Con Tab) 20 meq QAM PO 09/18/17 09:00 10/18/17 08:59 09/22/17 08:07 20 MEQ Oxycodone HCl (Roxicodone Immediate Rel Tab) 5 mg Q3RWA PRN PO 09/19/17 11:00 10/03/17 10:59 09/20/17 21:54 5 MG Acetaminophen (Tylenol Tab) 650 mg Q4H PRN PO 09/19/17 11:45 10/19/17 11:44 09/21/17 07:18 650 MG Objective Vital Signs Date Time Temp Pulse Resp B/P (MAP) Pulse Ox O2 Delivery O2 Flow Rate FiO2 09/22/17 09:35 36.8 82 20 185/94 (124) 96 Nasal Cannula 2.0 09/22/17 08:59 95 Nasal Cannula 2.0 09/22/17 08:05 36.6 102 20 166/83 (110) 90 Room Air 09/22/17 08:00 Room Air 09/22/17 08:00 90 Room Air 09/22/17 07:28 96 16 97 Room Air 09/22/17 04:00 Room Air 09/22/17 03:54 36.6 81 18 135/82 (99) 93 Room Air 09/22/17 00:00 Room Air 09/21/17 23:49 36.3 78 16 137/74 (95) 94 Room Air 09/21/17 20:00 Room Air 09/21/17 20:00 36.7 97 16 147/72 (97) 92 Room Air 09/21/17 19:17 96 16 95 Room Air 09/21/17 16:18 89 16 90 Room Air 09/21/17 16:00 Room Air 09/21/17 15:51 36.8 85 16 132/80 (97) 93 Room Air 09/21/17 12:00 95 Room Air 09/21/17 11:23 81 16 95 Room Air Physical Exam General Appearance: no apparent distress, + cachetic, + thin ENT: hearing grossly normal Respiratory/Chest: no respiratory distress, no accessory muscle use, + decreased breath sounds Cardiovascular: regular rate, rhythm, no edema, no murmur Extremities: normal inspection, no pedal edema Neurologic/Psychiatric: no motor/sensory deficits, alert, normal mood/affect Assessment and Plan This is an 82 year old female with a PMH of COPD, tobacco use disorder, iron deficiency anemia, B12 deficiency, hypothyroidism, HTN - presents with worsening shortness of breath, dyspnea on exertion and pleuritic chest pain and subsequently found to have a pneumothorax Secondary Spontaneous Pneumothorax presented with a L sided pneumothorax, secondary to her COPD; about 20mm separation She initially wanted conservative management approach to this; but due to worsening pneumothorax, she had a chest tube thoracostomy on 09/19 appreciate cardiothoracic surgery management - chest tube was then removed on Unfortunately, the size of the pneumothorax worsened; on 09/22; CXR performed showing a 2.1 cm pleural separation Plan for now is for possible talc pleurodesis; awaiting further input by cardiothoracic surgery COPD/Tobacco use disorder patient does not want to use nicotine patch at this time does not use inhalers at home for maintenance should have PFTs performed and possible addition of Spiriva vs. ICS/LABA appreciate pulmonary input for further management has completed course of steroids and antibiotics which are no longer needed at this time Pulmonary Cachexia appreciate nutritional consult; patient refusing boost or ensure at this time she is agreeable to small snacks throughout the day which should help Pulmonary Nodule 6-7 mm spiculated nodule noted on the R lower lobe outpatient follow-up in 6 months with repeat chest CT HTN blood pressure slightly elevated this morning, though anxiety playing a part this morning will monitor throughout the day currently on Amlodipine 5mg, low dose HCTZ, and metoprolol for now Iron Deficiency Anemia Hgb is stable has received Venofer in the past outpatient hematology follow-up Hypothyroidism continue Synthroid Hx. of Colon Cancer chronic diarrhea; continue Questran DVT ppx SCDs FULL CODE
--- NOTE | 2017-09-22 11:34 | DIAGNOSTIC IMAGING REPORT ---
CHEST ONE VIEW PORTABLE CLINICAL HISTORY: pneumothorax pneumothorax COMPARISON STUDY: 09/22/2017 8:21 AM FINDINGS: Left apical pneumothorax similar compared to the prior study. Maximum pleural separation is 2 cm. Area of interval development of a left basilar pneumothorax having a maximum separation of 1.6 cm. Lucency right base felt to be overlap artifact. Diffuse emphysematous changes similar. IMPRESSION: Slight increase in volume of a left-sided pneumothorax with the increased as compared to the prior study primarily at the left base. The above report was generated using voice recognition software. It may contain grammatical, syntax or spelling errors. Electronically signed by: Dominguez Mendez M.D. 09/22/2017 11:33 AM Dictated Date/Time: 09/22/2017 11:32 AM
--- NOTE | 2017-09-22 17:46 | History & Physical Bridge Note ---
H&P Re-Evaluation Bridge Note: I have examined the patient, reviewed the History & Physical and in the interval since the performance of the History & Physical I have noted the following changes of clinical significance: Mrs. Florentino has a recurrent pneumothorax. Long discussion with the family and patient. Rather than place another chest tube, I have recommended we do a thoracoscopy with an apical bleb resection and possible pleurectomy. They are agreeable. Long discussion about expected benefits and possible complications. They understand.No changes noted
[2017-09-22] MEDS ORDERED: LIDOCAINE HCL 2% 2 ML VIAL (20MG/ML) ONE (17:50)
[2017-09-22] MEDS ORDERED: FENTANYL CITRATE INJ 50 MCG/1 ML 2 ML VIAL ONE (17:50)
[2017-09-22] MEDS ORDERED: PROPOFOL IV EMULSION 10 MG/ML 20 ML VIAL IV ONE (17:50)
[2017-09-22] MEDS ORDERED: SODIUM CHLORIDE 0.9% PF 50 ML VIAL ONE (17:56)
[2017-09-22] MEDS ORDERED: BUPIVACAINE 0.5 % 5 MG/1 ML MPF 30ML VIAL ONE (17:57)
[2017-09-22] MEDS ORDERED: SODIUM CHLORIDE 0.9% INJ 10 ML VIAL ONE (17:57)
[2017-09-22] MEDS ORDERED: BUPIVACAINE LIPOSOME 1/3% 266 MG/20 ML VIAL INFIL ONE (17:57)
[2017-09-22] MEDS ORDERED: CLINDAMYCIN PHOS 150 MG/ML 2 ML VIAL ONE (18:18)
[2017-09-22] MEDS ORDERED: PHENYLEPHRINE HCL INJ 10 MG/ML VIAL ONE (18:44)
[2017-09-22] MEDS ORDERED: ONDANSETRON INJ 2 MG/ML 2 ML VIAL ONE (18:44)
[2017-09-22] MEDS ORDERED: NEOSTIGMINE METHYLSULFATE 5 MG/5 ML SYR ONE (18:44)
[2017-09-22] MEDS ORDERED: ROCURONIUM BROMIDE 10 MG/ML 5 ML VIAL IV ONE (18:44)
[2017-09-22] MEDS ORDERED: EpHEDrine SULFATE INJ 50 MG/ML AMP ONE (18:44)
[2017-09-22] MEDS ORDERED: GLYCOPYRROLATE INJ 0.2 MG/ML VIAL ONE (18:44)
--- NOTE | 2017-09-22 19:24 | [facility] Post Operative Brief Note ---
Immediate Operative Summary Operative Date Sep 22, 2017. Pre-Operative Diagnosis Left pneumothorax, and apical bleb Post-Operative Diagnosis Same Procedure(s) Performed Left thoracoscopy with bleb resection, limited pleurectomy Surgeon Dr Bell Hat Maker Surgeon(s) Aliza Ledezma PA-C Estimated Blood Loss 5 cc's Findings Consistent with Post-Op Diagnosis Specimens a. Superior segment of left lower lobe b. Empire Left upper lobe c. parietal pleural left Drains 20 fr chest tube Anesthesia Type General Complication(s) none
[2017-09-22] MEDS ORDERED: OXYCODONE HCL IR 5 MG TAB (IMMEDIATE RELEASE) PO PRN (19:45)
[2017-09-22] MEDS ORDERED: MoRPHine SULFATE 2 MG/ML CARP IV PRN (19:45)
[2017-09-22] MEDS ORDERED: ONDANSETRON INJ 2 MG/ML 2 ML VIAL IV PRN (19:45)
--- NOTE | 2017-09-22 19:57 | DIAGNOSTIC IMAGING REPORT ---
CHEST ONE VIEW PORTABLE CLINICAL HISTORY: 82 years-old Female presenting with bleb resection . TECHNIQUE: Portable upright AP view of the chest was obtained. COMPARISON: 09/22/2017. FINDINGS: Atherosclerosis of aortic arch. Cardiac silhouette enlarged. Lungs hyperinflated. Left basilar opacity. A large bore left pleural drain has been placed. Postsurgical changes of the left apex. Left pneumothorax has a pleural separation of 25 mm. Degenerative changes of the thoracic spine. Subcutaneous emphysema noted along the left lateral chest wall associated with the pleural drain. IMPRESSION: 1. Small left apical pneumothorax with a large bore pleural drain in place. 2. Left basilar atelectasis. 3. Postsurgical changes of the left apex. Electronically signed by: Kingsley Claros M.D. 09/22/2017 7:56 PM Dictated Date/Time: 09/22/2017 7:53 PM
[2017-09-22] MEDS: ACETAMINOPHEN IV 1,000 MG in EMPTY BAG 0 ML IV SCH (20:00)
[2017-09-22] MEDS: KETOROLAC TROMETHAMINE 15 MG/ML VIAL IV. SCH (20:00)
--- NOTE | 2017-09-22 20:46 | Anesthesiology Progress Note ---
Anesthesia Post Op Note Date & Time Sep 22, 2017 at 20:46 Vital Signs Pain Intensity: 0 Vital Signs Past 12 Hours Date Time Temp Pulse Resp B/P (MAP) Pulse Ox O2 Delivery O2 Flow Rate FiO2 09/22/17 20:35 72 19 134/79 97 Nasal Cannula 4 09/22/17 20:25 36.2 74 17 149/82 98 Nasal Cannula 4 09/22/17 20:15 83 16 150/89 97 Nasal Cannula 4 09/22/17 20:05 81 24 142/84 99 Oxymask 10 09/22/17 19:55 85 19 135/82 99 Oxymask 10 09/22/17 19:47 36.0 84 18 110/76 97 Oxymask 10 09/22/17 17:39 36.4 94 18 141/83 (102) 92 Nasal Cannula 3 09/22/17 16:12 80 16 94 Nasal Cannula 2.0 09/22/17 15:48 36.7 82 20 154/89 (110) 95 09/22/17 15:45 95 Room Air 09/22/17 12:21 95 Nasal Cannula 2.0 09/22/17 12:00 Nasal Cannula 3.0 09/22/17 11:59 36.7 82 16 154/81 (105) 95 Nasal Cannula 2.0 09/22/17 11:55 96 16 97 Nasal Cannula 2.0 09/22/17 09:35 36.8 82 20 185/94 (124) 96 Nasal Cannula 2.0 09/22/17 08:59 95 Nasal Cannula 2.0 Notes Mental Status: alert / awake / arousable, participated in evaluation Pt Amnestic to Procedure: Yes Nausea / Vomiting: adequately controlled Pain: adequately controlled Airway Patency, RR, SpO2: stable & adequate BP & HR: stable & adequate Hydration State: stable & adequate Anesthetic Complications: no major complications apparent
[2017-09-22] MEDS: DOCUSATE SODIUM 100 MG CAP PO SCH (22:17)
[2017-09-22] MEDS: METOCLOPRAMIDE HCL INJ 5 MG/ML 2 ML VIAL IV. SCH (22:18)
--- NOTE | 2017-09-22 22:39 | OPERATIVE REPORT ---
DATE OF OPERATION: 09/22/2017 PREOPERATIVE DIAGNOSIS: Recurrent left pneumothorax with apical blebs. POSTOPERATIVE DIAGNOSIS: Same. PROCEDURE: 1. Left thoracoscopy with apical bleb resection and resection of superior segment of the lower lobe. 2. Partial parietal pleurectomy of the upper chest cavity. SURGEON: Ramiro Bell MD. CORE DRILLER: DIAZ Murrell, (MrAsad Ledezma was present for the entire case and was instrumental in holding the camera and being a machinist first class). 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 She has been smoking for more than 60 years. She noted acute onset of chest pain and had a pneumothorax. It was not very large, so I elected to admit her and watch her on oxygen therapy. Unfortunately, it increased in size, so I placed a small bore chest tube and it resolved. She had no air leak for 48 hours and I removed the chest tube. Initially, her chest x-ray looked quite good. We were prepared to send her home this morning, however, when I saw her chest x-ray from this morning we could see that it has recurred. I repeated it and I felt that may be a little larger at the base. I had a long discussion with the patient and her children and we elected to proceed with an apical bleb resection as the CT scan had showed some blebs. On 09/22/2017, the patient underwent uncomplicated left thoracoscopy. She did have some adhesions which we took down with a Harmonic scalpel. I performed an Exparel block. I excised the apical blebs with an Endo-YANIQUE stapler as well as the blebs in the superior segment of the lower lobe. She really did not have an air leak at the conclusion of the case. We left a 20-Lithuanian chest tube. She tolerated it well. DESCRIPTION OF THE PROCEDURE: The patient brought to the operating room, laid in supine position. General anesthesia induced and endotracheal intubation was performed with a single lumen tube. The patient was placed in right lateral decubitus position. Left chest prepped, draped in usual sterile fashion. A 5 mm incision was made about the eighth interspace posterior axillary line. The CO2 was then insufflated and with the 5 mm scope, saw there were some adhesions laterally, but none in the area of our incisions and the lung had collapsed nicely with the CO2. We then placed a 12 mm port anteriorly at about the eighth interspace and another 5 mm port at about the fourth interspace. Using a Harmonic scalpel, I then took down these adhesions. There were blebs in the superior segment of the lower lobe which I removed with Endo-YANIQUE stapler. There was also blebs apically and there were adhesions as I took down and I wedged these out also. We then inflated the lung and really saw no air leaking. Then, 266 mg of Exparel mixed with 30 mL of 0.5% bupivacaine and 100 mL of normal saline injected in the intercostal block from the 2nd to the 11th rib. I then used the same solution to inject the 3 port sites. A 20-Lithuanian chest tube was inserted towards the apex and brought out through the anterior inferior wound. This was sutured in place with heavy silk suture. A 4-0 Monocryl was used in a running subcuticular fashion to approximate all the wound edges. The patient tolerated it well and was extubated in the room. I attest to the content of the Intraoperative Record and any orders documented therein. Any exception s are noted below.
[2017-09-23] VITALS (17 sets, daily range): BP systolic 109–148; BP diastolic 66–84; PULSE 61–79; TEMP 36.4–37; O2SAT 95–98
[2017-09-23] MEDS: KETOROLAC TROMETHAMINE 15 MG/ML VIAL IV. SCH ×3 (04:00→20:17)
[2017-09-23] MEDS: ACETAMINOPHEN IV 1,000 MG in EMPTY BAG 0 ML IV SCH ×3 (04:09→20:08)
[2017-09-23] MEDS: LEVOTHYROXINE 88 MCG TAB PO SCH (05:54)
[2017-09-23] MEDS: METOCLOPRAMIDE HCL INJ 5 MG/ML 2 ML VIAL IV. SCH ×2 (05:57→13:48)
[2017-09-23] MEDS: ALBUT/IPRATROP 3MG/0.5MG NEB 3 ML VIAL INH SCH ×4 (06:58→20:05)
--- NOTE | 2017-09-23 07:07 | DIAGNOSTIC IMAGING REPORT ---
CHEST ONE VIEW PORTABLE CLINICAL HISTORY: bleb resection COMPARISON STUDY: Chest CT September 20, 2017 and chest radiograph September 22, 2017. FINDINGS: Left apical chest tube is in place. A small amount of gas within left chest wall is again noted. A small left pneumothorax has decreased in size since exam of September 22, 2017. Superior pleural separation measures 6 mm. Postoperative findings within the left upper lung are noted. Emphysema is noted. Cardiomediastinal silhouette is unremarkable. IMPRESSION: Left chest tube in place. Small left apical pneumothorax, decreased in size since prior exam. Electronically signed by: Piyush Telles M.D. 09/23/2017 7:05 AM Dictated Date/Time: 09/23/2017 7:03 AM
[2017-09-23] MEDS: HYDROCHLOROTHIAZIDE 25 MG TAB PO SCH (09:00)
[2017-09-23] MEDS ORDERED: ENOXAPARIN 40 MG/0.4 ML SYR SQ SCH (09:00)
[2017-09-23] MEDS: POTASSIUM CHLORIDE 20 MEQ TABCR PO SCH (09:24)
[2017-09-23] MEDS: ASCORBIC ACID 500 MG TAB PO SCH (09:24)
[2017-09-23] MEDS: CHOLECALCIFEROL 1000 INTER.UNIT TAB PO SCH (09:25)
[2017-09-23] MEDS: AMLODIPINE BESYLATE 5 MG TAB PO SCH (09:26)
[2017-09-23] MEDS: CYANOCOBALAMIN 500 MCG TAB (VIT B-12) PO SCH (09:27)
[2017-09-23] MEDS: METOPROLOL TARTRATE 50 MG TAB PO SCH ×2 (09:28→20:10)
[2017-09-23] MEDS: DOCUSATE SODIUM 100 MG CAP PO SCH ×2 (09:28→20:09)
[2017-09-23] MEDS: CHOLESTYRAMINE LIGHT 4 GM PKT PO SCH ×2 (10:32→23:02)
--- NOTE | 2017-09-23 13:24 | Progress Note ---
Subjective Date of Service: Sep 23, 2017. Subjective Pt evaluation today including: conversation w/ patient, physical exam, lab review, review of studies, review of inpatient medication list Saw/examined the patient in room 233 She had L thoracoscopy with bleb resection done yesterday (09/22) States she feels something is stuck in her throat today; states she took her pills and feels that may be stuck there Denies shortness of breath or chest pain. Problem List Medical Problems: (1) Pneumothorax Status: Acute (2) Respiratory failure with hypoxia Status: Acute (3) SOB (shortness of breath) Status: Acute Review of Systems Constitutional: No fever, No chills ENT: + trouble swallowing Respiratory: No cough, No sputum, No shortness of breath Cardiac: No chest pain Medications Current Inpatient Medications Medications (Trade) Dose Ordered Sig/Rosa Isela Route Start Time Stop Time Status Last Admin Dose Admin Albuterol/ Ipratropium (Duoneb) 3 ml QIDR INH 09/17/17 16:00 10/17/17 15:59 09/23/17 11:32 3 ML Amlodipine Besylate (Norvasc Tab) 5 mg DAILY PO 09/18/17 09:00 10/18/17 08:59 09/23/17 09:26 5 MG Cyanocobalamin (Vitamin B-12 Tab) 1,000 mcg DAILY PO 09/18/17 09:00 10/18/17 08:59 09/23/17 09:27 1,000 MCG Folic Acid (Folvite Tab) 1 mg HS PO 09/17/17 21:00 10/17/17 20:59 09/22/17 22:17 1 MG Levothyroxine Sodium (Synthroid Tab) 88 mcg DAILYBB PO 09/18/17 06:00 10/18/17 06:59 09/23/17 05:54 88 MCG Metoprolol Tartrate (Lopressor Tab) 50 mg BID PO 09/17/17 21:00 10/17/17 20:59 09/23/17 09:28 50 MG Ascorbic Acid (Vitamin C Tab) 500 mg DAILY PO 09/18/17 09:00 10/18/17 08:59 09/23/17 09:24 500 MG Cholecalciferol (Vitamin D Tab) 2,000 inter.unit DAILY PO 09/18/17 09:00 10/18/17 08:59 09/23/17 09:25 2,000 INTER.UNIT Cholestyramine Resin (Questran Powder Light) 4 gm BID@1000,2200 PO 09/17/17 22:00 10/17/17 21:59 09/23/17 10:32 4 GM Hydrochlorothiazide (Hydrochlorothiazide Tab) 12.5 mg DAILY PO 09/18/17 09:00 10/18/17 08:59 09/22/17 08:08 12.5 MG Miscellaneous Information (Order Awaiting Action) 1 ea QS N/A 09/18/17 00:00 10/18/17 00:00 Potassium Chloride (Klor-Con Tab) 20 meq QAM PO 09/18/17 09:00 10/18/17 08:59 09/23/17 09:24 20 MEQ Oxycodone HCl (Roxicodone Immediate Rel Tab) 5 mg Q6H PRN PO 09/22/17 19:45 10/06/17 19:44 Acetaminophen 1000 mg/Empty Bag 100 ml @ 400 mls/hr Q8H IV 09/22/17 20:00 10/22/17 19:59 09/23/17 04:09 400 MLS/HR Enoxaparin Sodium (Lovenox Inj) 40 mg DAILY SQ 09/23/17 09:00 10/23/17 08:59 09/23/17 09:26 40 MG Ondansetron HCl (Zofran Inj) 4 mg Q4H PRN IV 09/22/17 19:45 10/22/17 19:44 Docusate Sodium (coLACE CAP) 100 mg BID PO 09/22/17 21:00 10/22/17 20:59 09/23/17 09:28 100 MG Ketorolac Tromethamine (Toradol Inj) 15 mg Q8H IV. 09/22/17 20:00 09/24/17 12:01 Metoclopramide HCl (Reglan Inj) 10 mg Q8 IV. 09/22/17 22:00 09/23/17 21:59 09/23/17 05:57 10 MG Morphine Sulfate (MoRPHine SULFATE INJ) Q1H PRN IV 09/22/17 19:45 10/06/17 19:44 Objective Vital Signs Date Time Temp Pulse Resp B/P (MAP) Pulse Ox O2 Delivery O2 Flow Rate FiO2 09/23/17 12:07 36.5 74 20 127/74 (91) 97 Nasal Cannula 3.0 09/23/17 12:00 Nasal Cannula 09/23/17 11:34 73 16 97 Nasal Cannula 3.0 09/23/17 08:00 Nasal Cannula 09/23/17 07:58 36.7 71 20 144/78 (100) 97 Nasal Cannula 2.0 09/23/17 06:58 74 16 97 Nasal Cannula 3.0 09/23/17 05:00 66 148/77 (100) 97 Nasal Cannula 09/23/17 04:04 36.8 66 16 139/78 (98) 98 09/23/17 04:00 98 Nasal Cannula 09/23/17 04:00 61 148/76 (100) 97 Nasal Cannula 3.0 09/23/17 03:00 148/77 (100) 09/23/17 02:00 36.6 65 147/77 (100) 98 Nasal Cannula 3.0 09/23/17 01:00 69 133/66 (88) 96 Nasal Cannula 3.0 09/23/17 00:14 36.4 79 16 141/84 (103) 96 3.0 09/23/17 00:00 67 132/76 (94) 98 Nasal Cannula 3.0 09/23/17 00:00 98 Nasal Cannula 3.0 09/22/17 22:35 76 20 140/86 (104) 99 4.0 09/22/17 22:15 76 20 150/81 (104) 99 4.0 09/22/17 22:00 76 20 150/85 (106) 97 4.0 09/22/17 21:30 81 20 130/82 (98) 96 4.0 09/22/17 21:15 70 20 160/81 (107) 98 Nasal Cannula 4.0 09/22/17 21:02 35.8 71 22 147/88 (107) 99 Nasal Cannula 4.0 09/22/17 20:35 72 19 134/79 97 Nasal Cannula 4 09/22/17 20:25 36.2 74 17 149/82 98 Nasal Cannula 4 09/22/17 20:15 83 16 150/89 97 Nasal Cannula 4 09/22/17 20:05 81 24 142/84 99 Oxymask 10 09/22/17 19:55 85 19 135/82 99 Oxymask 10 09/22/17 19:47 36.0 84 18 110/76 97 Oxymask 10 09/22/17 17:39 36.4 94 18 141/83 (102) 92 Nasal Cannula 3 09/22/17 16:12 80 16 94 Nasal Cannula 2.0 09/22/17 15:48 36.7 82 20 154/89 (110) 95 09/22/17 15:45 95 Room Air Physical Exam General Appearance: + cachetic, + thin Respiratory/Chest: no respiratory distress, no accessory muscle use, + decreased breath sounds Cardiovascular: regular rate, rhythm, no edema, no murmur Neurologic/Psychiatric: no motor/sensory deficits, alert, normal mood/affect, oriented x 3 Assessment and Plan This is an 82 year old female with a PMH of COPD, tobacco use disorder, iron deficiency anemia, B12 deficiency, hypothyroidism, HTN - presents with worsening shortness of breath, dyspnea on exertion and pleuritic chest pain and subsequently found to have a pneumothorax Secondary Spontaneous Pneumothorax 09/23 appreciate CTS input s/p surgical intervention (bleb resection) on 09/22 CXR on 09/23 suggests small apical pneumothorax speech evaluation pending due to trouble swallowing 09/22 presented with a L sided pneumothorax, secondary to her COPD; about 20mm separation She initially wanted conservative management approach to this; but due to worsening pneumothorax, she had a chest tube thoracostomy on 09/19 appreciate cardiothoracic surgery management - chest tube was then removed on Unfortunately, the size of the pneumothorax worsened; on 09/22; CXR performed showing a 2.1 cm pleural separation Plan for now is for possible talc pleurodesis; awaiting further input by cardiothoracic surgery COPD/Tobacco use disorder patient does not want to use nicotine patch at this time does not use inhalers at home for maintenance should have PFTs performed and possible addition of Spiriva vs. ICS/LABA appreciate pulmonary input for further management has completed course of steroids and antibiotics which are no longer needed at this time Pulmonary Cachexia appreciate nutritional consult; patient refusing boost or ensure at this time she is agreeable to small snacks throughout the day which should help Pulmonary Nodule 6-7 mm spiculated nodule noted on the R lower lobe outpatient follow-up in 6 months with repeat chest CT HTN blood pressure slightly elevated this morning, though anxiety playing a part this morning will monitor throughout the day currently on Amlodipine 5mg, low dose HCTZ, and metoprolol for now Iron Deficiency Anemia Hgb is stable has received Venofer in the past outpatient hematology follow-up Hypothyroidism continue Synthroid Hx. of Colon Cancer chronic diarrhea; continue Questran DVT ppx SCDs FULL CODE
--- NOTE | 2017-09-23 17:51 | SURGERY PROGRESS NOTE ---
DATE: 09/23/2017 Ms. Florentino was seen today on 09/23/2017, one day after a thoracoscopic apical bleb resection and pleurectomy. She looks very good. She has very little in the way of any pain, has good cough. Her x-ray really does not show much in the way of a pneumothorax. She really does not have an air leak which is excellent. She is draining very little fluid. I am quite happy with appearance of her chest x-ray. I plan on leaving this chest tube in there for another 24-48 hours. I discussed this with the patient and her family.
[2017-09-24] VITALS (8 sets, daily range): BP systolic 114–151; BP diastolic 68–83; PULSE 71–101; TEMP 36.7–37.2; O2SAT 96–99
[2017-09-24] MEDS: KETOROLAC TROMETHAMINE 15 MG/ML VIAL IV. SCH ×2 (03:57→12:00)
[2017-09-24] MEDS: ACETAMINOPHEN IV 1,000 MG in EMPTY BAG 0 ML IV SCH ×3 (03:57→20:03)
[2017-09-24 06:22] LABS: HEMATOCRIT 36.8 % (37-47); HEMOGLOBIN 12.6 g/dL (12.0-16.0); MEAN CELL VOLUME 91.8 fL (80-100); MEAN CORPUSCULAR HEMOGLOBIN 31.4 pg (25-34); MEAN CORPUSCULAR HGB CONC 34.2 g/dl (32-36); MEAN PLATELET VOLUME 9.3 fL (7.4-10.4); PLATELET COUNT 135 K/uL (130-400); RED CELL DISTRIBUTION WIDTH CV 13.3 % (11.5-14.5); RED CELL DISTRIBUTION WIDTH SD 44.6 fL (36.4-46.3); WHITE BLOOD COUNT 8.59 K/uL (4.8-10.8)
[2017-09-24] MEDS: LEVOTHYROXINE 88 MCG TAB PO SCH (06:34)
[2017-09-24] MEDS: HEPARIN SOD 5000 UNIT/0.5 ML CARP SQ SCH ×3 (06:36→22:28)
[2017-09-24 06:48] LABS: CALCIUM 7.9 mg/dl (8.5-10.1); CREATININE 0.62 mg/dl (0.60-1.20); POTASSIUM 3.3 mmol/L (3.5-5.1)
[2017-09-24] MEDS: ALBUT/IPRATROP 3MG/0.5MG NEB 3 ML VIAL INH SCH ×3 (07:05→14:52)
--- NOTE | 2017-09-24 08:02 | DIAGNOSTIC IMAGING REPORT ---
CHEST ONE VIEW PORTABLE CLINICAL HISTORY: 82 years-old Female presenting with bleb resection . TECHNIQUE: Portable upright AP view of the chest was obtained. COMPARISON: 09/23/2017. FINDINGS: Left large bore pleural drain remains in place. Atherosclerosis of aortic arch. Cardiac silhouette mildly enlarged. Postsurgical changes of the left apex. No significant residual left apical pneumothorax. Lungs are hyperinflated, unchanged. Osteopenia suspected. Scoliotic curvature of the lower thoracic and upper lumbar spine. Subcutaneous emphysema extensively along the left chest wall associated with the pleural drain. IMPRESSION: 1. No symmetrical residual left apical pneumothorax with the large bore left pleural drain remaining in place. 2. Post surgical changes of the left apex. 3. Underlying emphysema. Electronically signed by: Kingsley Claros M.D. 09/24/2017 8:00 AM Dictated Date/Time: 09/24/2017 7:59 AM
[2017-09-24] MEDS: POTASSIUM CHLORIDE 20 MEQ TABCR PO SCH (09:00)
[2017-09-24] MEDS: CHOLECALCIFEROL 1000 INTER.UNIT TAB PO SCH (09:00)
[2017-09-24] MEDS: CYANOCOBALAMIN 500 MCG TAB (VIT B-12) PO SCH (09:00)
[2017-09-24] MEDS: HYDROCHLOROTHIAZIDE 25 MG TAB PO SCH (09:00)
[2017-09-24] MEDS: AMLODIPINE BESYLATE 5 MG TAB PO SCH (09:00)
[2017-09-24] MEDS: ASCORBIC ACID 500 MG TAB PO SCH (09:00)
[2017-09-24] MEDS: DOCUSATE SODIUM 100 MG CAP PO SCH ×2 (09:00→19:57)
[2017-09-24] MEDS: METOPROLOL TARTRATE 50 MG TAB PO SCH ×2 (09:00→19:57)
--- NOTE | 2017-09-24 09:34 | Progress Note ---
Subjective Date of Service: Sep 24, 2017. Subjective Pt evaluation today including: conversation w/ patient, physical exam, lab review, review of studies, conversation w/ design studio consultant, review of inpatient medication list Saw/examined the patient in room 233 No problems/issues to note today She has had trouble swallowing, as she thinks there is a pill stuck in her throat worked with speech/swallow denies chest pain or shortness of breath today Problem List Medical Problems: (1) Pneumothorax Status: Acute (2) Respiratory failure with hypoxia Status: Acute (3) SOB (shortness of breath) Status: Acute Review of Systems ENT: + trouble swallowing Respiratory: No cough, No sputum, No wheezing, No shortness of breath, No dyspnea on exertion, No dyspnea at rest, No hemoptysis Cardiac: No chest pain, No edema, No palpitations Medications Current Inpatient Medications Medications (Trade) Dose Ordered Sig/Rosa Isela Route Start Time Stop Time Status Last Admin Dose Admin Albuterol/ Ipratropium (Duoneb) 3 ml QIDR INH 09/17/17 16:00 10/17/17 15:59 09/24/17 07:05 3 ML Amlodipine Besylate (Norvasc Tab) 5 mg DAILY PO 09/18/17 09:00 10/18/17 08:59 09/23/17 09:26 5 MG Cyanocobalamin (Vitamin B-12 Tab) 1,000 mcg DAILY PO 09/18/17 09:00 10/18/17 08:59 09/23/17 09:27 1,000 MCG Folic Acid (Folvite Tab) 1 mg HS PO 09/17/17 21:00 10/17/17 20:59 09/23/17 20:09 1 MG Levothyroxine Sodium (Synthroid Tab) 88 mcg DAILYBB PO 09/18/17 06:00 10/18/17 06:59 09/24/17 06:34 88 MCG Metoprolol Tartrate (Lopressor Tab) 50 mg BID PO 09/17/17 21:00 10/17/17 20:59 09/23/17 20:10 50 MG Ascorbic Acid (Vitamin C Tab) 500 mg DAILY PO 09/18/17 09:00 10/18/17 08:59 09/23/17 09:24 500 MG Cholecalciferol (Vitamin D Tab) 2,000 inter.unit DAILY PO 09/18/17 09:00 10/18/17 08:59 09/23/17 09:25 2,000 INTER.UNIT Cholestyramine Resin (Questran Powder Light) 4 gm BID@1000,2200 PO 09/17/17 22:00 10/17/17 21:59 09/23/17 23:02 4 GM Hydrochlorothiazide (Hydrochlorothiazide Tab) 12.5 mg DAILY PO 09/18/17 09:00 10/18/17 08:59 09/22/17 08:08 12.5 MG Miscellaneous Information (Order Awaiting Action) 1 ea QS N/A 09/18/17 00:00 10/18/17 00:00 Potassium Chloride (Klor-Con Tab) 20 meq QAM PO 09/18/17 09:00 10/18/17 08:59 09/23/17 09:24 20 MEQ Oxycodone HCl (Roxicodone Immediate Rel Tab) 5 mg Q6H PRN PO 09/22/17 19:45 10/06/17 19:44 Acetaminophen 1000 mg/Empty Bag 100 ml @ 400 mls/hr Q8H IV 09/22/17 20:00 10/22/17 19:59 09/24/17 03:57 400 MLS/HR Ondansetron HCl (Zofran Inj) 4 mg Q4H PRN IV 09/22/17 19:45 10/22/17 19:44 Docusate Sodium (coLACE CAP) 100 mg BID PO 09/22/17 21:00 10/22/17 20:59 09/23/17 20:09 100 MG Ketorolac Tromethamine (Toradol Inj) 15 mg Q8H IV. 09/22/17 20:00 09/24/17 12:01 09/24/17 03:57 15 MG Morphine Sulfate (MoRPHine SULFATE INJ) Q1H PRN IV 09/22/17 19:45 10/06/17 19:44 Heparin Sodium (Porcine) (Heparin Sq 5000 Unit/0.5ml) 5,000 unit Q8 SQ 09/24/17 06:00 10/24/17 05:59 09/24/17 06:36 5,000 UNIT Objective Vital Signs Date Time Temp Pulse Resp B/P (MAP) Pulse Ox O2 Delivery O2 Flow Rate FiO2 09/24/17 07:30 Nasal Cannula 2.0 09/24/17 07:12 36.7 71 20 128/68 (88) 99 2.0 09/24/17 04:00 Nasal Cannula 2.0 09/24/17 03:54 36.7 76 20 150/83 (105) 98 Nasal Cannula 2.0 09/23/17 23:37 36.6 73 17 131/70 (90) 96 Nasal Cannula 2.0 09/23/17 23:07 Nasal Cannula 2.0 09/23/17 20:16 68 16 97 Nasal Cannula 2.0 09/23/17 20:08 Nasal Cannula 2.0 09/23/17 19:35 36.4 78 20 109/74 (86) 95 Nasal Cannula 2.0 09/23/17 16:00 Nasal Cannula 09/23/17 15:13 37.0 79 16 120/69 (86) 95 Nasal Cannula 2.0 09/23/17 14:45 78 16 98 Nasal Cannula 3.0 09/23/17 12:07 36.5 74 20 127/74 (91) 97 Nasal Cannula 3.0 09/23/17 12:00 Nasal Cannula 09/23/17 11:34 73 16 97 Nasal Cannula 3.0 Physical Exam General Appearance: no apparent distress, + cachetic Respiratory/Chest: no respiratory distress, no accessory muscle use, + crackles (L side) Cardiovascular: regular rate, rhythm, no edema, no murmur Laboratory Results Last 24 Hours Test 09/24/17 06:11 White Blood Count 8.59 K/uL Red Blood Count 4.01 M/uL Hemoglobin 12.6 g/dL Hematocrit 36.8 % Mean Corpuscular Volume 91.8 fL Mean Corpuscular Hemoglobin 31.4 pg Mean Corpuscular Hemoglobin Concent 34.2 g/dl RDW Standard Deviation 44.6 fL RDW Coefficient of Variation 13.3 % Platelet Count 135 K/uL Mean Platelet Volume 9.3 fL Sodium Level 138 mmol/L Potassium Level 3.3 mmol/L Chloride Level 100 mmol/L Carbon Dioxide Level 33 mmol/L Anion Gap 5.0 mmol/L Blood Urea Nitrogen 17 mg/dl Creatinine 0.62 mg/dl Est Creatinine Clear Calc Drug Dose 52.5 ml/min Estimated GFR () 96.6 Estimated GFR (Non- 83.4 BUN/Creatinine Ratio 27.4 Random Glucose 84 mg/dl Calcium Level 7.9 mg/dl Assessment and Plan This is an 82 year old female with a PMH of COPD, tobacco use disorder, iron deficiency anemia, B12 deficiency, hypothyroidism, HTN - presents with worsening shortness of breath, dyspnea on exertion and pleuritic chest pain and subsequently found to have a pneumothorax Secondary Spontaneous Pneumothorax 09/24 doing well, chest tube in place to be removed in AM, possible d/c home in 1-2 days monitor for aspiration 09/23 appreciate CTS input s/p surgical intervention (bleb resection) on 09/22 CXR on 09/23 suggests small apical pneumothorax speech evaluation pending due to trouble swallowing 09/22 presented with a L sided pneumothorax, secondary to her COPD; about 20mm separation She initially wanted conservative management approach to this; but due to worsening pneumothorax, she had a chest tube thoracostomy on 09/19 appreciate cardiothoracic surgery management - chest tube was then removed on Unfortunately, the size of the pneumothorax worsened; on 09/22; CXR performed showing a 2.1 cm pleural separation Plan for now is for possible talc pleurodesis; awaiting further input by cardiothoracic surgery COPD/Tobacco use disorder patient does not want to use nicotine patch at this time does not use inhalers at home for maintenance should have PFTs performed and possible addition of Spiriva vs. ICS/LABA appreciate pulmonary input for further management has completed course of steroids and antibiotics which are no longer needed at this time Pulmonary Cachexia appreciate nutritional consult; patient refusing boost or ensure at this time she is agreeable to small snacks throughout the day which should help Pulmonary Nodule 6-7 mm spiculated nodule noted on the R lower lobe outpatient follow-up in 6 months with repeat chest CT HTN blood pressure slightly elevated this morning, though anxiety playing a part this morning will monitor throughout the day currently on Amlodipine 5mg, low dose HCTZ, and metoprolol for now Iron Deficiency Anemia Hgb is stable has received Venofer in the past outpatient hematology follow-up Hypothyroidism continue Synthroid Hx. of Colon Cancer chronic diarrhea; continue Questran DVT ppx SCDs FULL CODE
[2017-09-24] MEDS ORDERED: POTASSIUM CHLORIDE 20 MEQ/15 ML UDC PO ONE (09:45)
[2017-09-24] MEDS: CHOLESTYRAMINE LIGHT 4 GM PKT PO SCH ×2 (10:00→22:25)
[2017-09-24] MEDS ORDERED: POTASSIUM CHLORIDE 20 MEQ/15 ML UDC PO SCH (16:00)
--- NOTE | 2017-09-24 16:16 | Progress Note ---
Progress Note Date of Service Sep 24, 2017. Progress Note Leticia Florentino is seen today 2 days status post an apical bleb resection and partial pleurectomy. She does not have an air leak. She has multiple complaints however. She is having difficulty swallowing her throat hurts after being intubated for the surgery. Her rhythm has been stable and we are going to have her transferred to the floor. If things look good tomorrow I am going to remove her chest tube and let her be discharged.
[2017-09-24] MEDS: IPRATROPIUM BROMIDE/ALBUTEROL respimat INH INH SCH ×2 (17:00→22:23)
[2017-09-25] MEDS: ACETAMINOPHEN IV 1,000 MG in EMPTY BAG 0 ML IV SCH ×3 (03:04→20:36)
[2017-09-25] MEDS: LEVOTHYROXINE 88 MCG TAB PO SCH (05:47)
[2017-09-25] MEDS: HEPARIN SOD 5000 UNIT/0.5 ML CARP SQ SCH ×3 (05:49→21:13)
[2017-09-25 06:29] VITALS: O2SAT 88
[2017-09-25 06:30] VITALS: O2SAT 93
[2017-09-25 07:25] VITALS: BP 135/77; PULSE 76; TEMP 36.4; O2SAT 99
[2017-09-25 07:57] LABS: HEMATOCRIT 37.2 % (37-47); HEMOGLOBIN 12.3 g/dL (12.0-16.0); MEAN CELL VOLUME 93.5 fL (80-100); MEAN CORPUSCULAR HEMOGLOBIN 30.9 pg (25-34); MEAN CORPUSCULAR HGB CONC 33.1 g/dl (32-36); MEAN PLATELET VOLUME 9.1 fL (7.4-10.4); PLATELET COUNT 142 K/uL (130-400); RED CELL DISTRIBUTION WIDTH CV 13.3 % (11.5-14.5); RED CELL DISTRIBUTION WIDTH SD 45.7 fL (36.4-46.3); WHITE BLOOD COUNT 9.55 K/uL (4.8-10.8)
[2017-09-25 08:28] LABS: CALCIUM 8.1 mg/dl (8.5-10.1); CREATININE 0.52 mg/dl (0.60-1.20); POTASSIUM 3.5 mmol/L (3.5-5.1)
[2017-09-25] MEDS: IPRATROPIUM BROMIDE/ALBUTEROL respimat INH INH SCH ×4 (09:53→20:36)
[2017-09-25] MEDS: POTASSIUM CHLORIDE 20 MEQ TABCR PO SCH (09:54)
[2017-09-25] MEDS: CHOLECALCIFEROL 1000 INTER.UNIT TAB PO SCH (09:54)
[2017-09-25] MEDS: DOCUSATE SODIUM 100 MG CAP PO SCH ×2 (09:54→20:37)
[2017-09-25] MEDS: AMLODIPINE BESYLATE 5 MG TAB PO SCH (09:54)
[2017-09-25] MEDS: METOPROLOL TARTRATE 50 MG TAB PO SCH ×2 (09:55→20:37)
[2017-09-25] MEDS: CYANOCOBALAMIN 500 MCG TAB (VIT B-12) PO SCH (09:55)
[2017-09-25] MEDS: HYDROCHLOROTHIAZIDE 25 MG TAB PO SCH (09:55)
[2017-09-25] MEDS: ASCORBIC ACID 500 MG TAB PO SCH (09:55)
[2017-09-25] MEDS: CHOLESTYRAMINE LIGHT 4 GM PKT PO SCH ×2 (09:56→21:10)
--- NOTE | 2017-09-25 11:27 | DIAGNOSTIC IMAGING REPORT ---
CHEST ONE VIEW PORTABLE HISTORY: 82 years-old Female tube removal status post removal of left-sided chest tube COMPARISON: Chest radiograph 09/24/2017 TECHNIQUE: Portable AP view of the chest FINDINGS: Postsurgical changes of the left lung apex are noted with interval removal of the left-sided chest tube. No definite residual left-sided pneumothorax identified. There is persistent subcutaneous emphysema along the left chest wall. Cardiac silhouette is within normal limits. Atherosclerosis of the aorta. Lungs are hyperinflated with bibasilar atelectasis/scarring which is unchanged. The bones appear moderately demineralized and appear grossly intact. Levoscoliosis of the lumbar spine is partially imaged. IMPRESSION: Postsurgical changes of the left lung apex with interval removal of the left-sided chest tube. There is persistent subcutaneous emphysema along the left lateral chest wall without definite pneumothorax identified. The above report was generated using voice recognition software. It may contain grammatical, syntax or spelling errors. Electronically signed by: Gurdeep Carr M.D. 09/25/2017 11:26 AM Dictated Date/Time: 09/25/2017 11:23 AM
--- NOTE | 2017-09-25 11:36 | Progress Note ---
Progress Note Date of Service Sep 25, 2017. Progress Note Mrs. Florentino was seen today. She has no air leak and we removed her chest tube. Her x-ray looks quite good. We are going to try and wean her off the oxygen and hopefully get her out of the hospital tomorrow. I am quite pleased with all of her incisions and her lack of pain. She needs to be pushed to walk.
--- NOTE | 2017-09-25 12:18 | Progress Note ---
Subjective Date of Service: Sep 25, 2017. Subjective Pt evaluation today including: conversation w/ patient, physical exam, lab review, review of studies, review of inpatient medication list Saw/examined the patient in room 375 She's doing well, no significant issues to note No shortness of breath Feels her "choking" episodes have improved as well Problem List Medical Problems: (1) Pneumothorax Status: Acute (2) Respiratory failure with hypoxia Status: Acute (3) SOB (shortness of breath) Status: Acute Review of Systems Constitutional: No fever, No chills, No weakness Respiratory: + cough, + shortness of breath, No sputum, No wheezing, No dyspnea on exertion, No dyspnea at rest, No hemoptysis Cardiac: No chest pain, No edema, No palpitations Medications Current Inpatient Medications Medications (Trade) Dose Ordered Sig/Rosa Isela Route Start Time Stop Time Status Last Admin Dose Admin Amlodipine Besylate (Norvasc Tab) 5 mg DAILY PO 09/18/17 09:00 10/18/17 08:59 09/25/17 09:54 5 MG Cyanocobalamin (Vitamin B-12 Tab) 1,000 mcg DAILY PO 09/18/17 09:00 10/18/17 08:59 09/25/17 09:55 1,000 MCG Folic Acid (Folvite Tab) 1 mg HS PO 09/17/17 21:00 10/17/17 20:59 09/24/17 19:57 1 MG Levothyroxine Sodium (Synthroid Tab) 88 mcg DAILYBB PO 09/18/17 06:00 10/18/17 06:59 09/25/17 05:47 88 MCG Metoprolol Tartrate (Lopressor Tab) 50 mg BID PO 09/17/17 21:00 10/17/17 20:59 09/25/17 09:55 50 MG Ascorbic Acid (Vitamin C Tab) 500 mg DAILY PO 09/18/17 09:00 10/18/17 08:59 09/25/17 09:55 500 MG Cholecalciferol (Vitamin D Tab) 2,000 inter.unit DAILY PO 09/18/17 09:00 10/18/17 08:59 09/25/17 09:54 2,000 INTER.UNIT Cholestyramine Resin (Questran Powder Light) 4 gm BID@1000,2200 PO 09/17/17 22:00 10/17/17 21:59 09/24/17 22:25 4 GM Hydrochlorothiazide (Hydrochlorothiazide Tab) 12.5 mg DAILY PO 09/18/17 09:00 10/18/17 08:59 09/25/17 09:55 12.5 MG Miscellaneous Information (Order Awaiting Action) 1 ea QS N/A 09/18/17 00:00 10/18/17 00:00 Potassium Chloride (Klor-Con Tab) 20 meq QAM PO 09/18/17 09:00 10/18/17 08:59 09/25/17 09:54 20 MEQ Oxycodone HCl (Roxicodone Immediate Rel Tab) 5 mg Q6H PRN PO 09/22/17 19:45 10/06/17 19:44 Acetaminophen 1000 mg/Empty Bag 100 ml @ 400 mls/hr Q8H IV 09/22/17 20:00 10/22/17 19:59 09/25/17 03:04 400 MLS/HR Ondansetron HCl (Zofran Inj) 4 mg Q4H PRN IV 09/22/17 19:45 10/22/17 19:44 Docusate Sodium (coLACE CAP) 100 mg BID PO 09/22/17 21:00 10/22/17 20:59 09/25/17 09:54 100 MG Morphine Sulfate (MoRPHine SULFATE INJ) Q1H PRN IV 09/22/17 19:45 10/06/17 19:44 Heparin Sodium (Porcine) (Heparin Sq 5000 Unit/0.5ml) 5,000 unit Q8 SQ 09/24/17 06:00 10/24/17 05:59 09/25/17 05:49 5,000 UNIT Albuterol/ Ipratropium (Combivent Respimat Inh) 1 puffs QID INH 09/24/17 17:00 10/24/17 16:59 09/25/17 09:53 1 PUFFS Objective Vital Signs Date Time Temp Pulse Resp B/P (MAP) Pulse Ox O2 Delivery O2 Flow Rate FiO2 09/25/17 08:30 Nasal Cannula 2.0 09/25/17 07:25 36.4 76 18 135/77 (96) 99 Nasal Cannula 2.0 09/25/17 06:30 93 Nasal Cannula 2.0 09/25/17 06:29 88 Room Air 09/25/17 00:00 Nasal Cannula 2.0 09/24/17 22:57 36.8 78 16 151/82 (105) 97 Nasal Cannula 2.0 09/24/17 18:38 37.2 86 16 150/69 (96) 96 Nasal Cannula 2.0 09/24/17 17:45 Nasal Cannula 2.0 09/24/17 17:28 37.0 90 18 98 2.0 09/24/17 16:00 Nasal Cannula 2.0 09/24/17 15:38 37.0 90 18 114/71 (85) 98 Nasal Cannula 2.0 09/24/17 14:52 84 14 98 Nasal Cannula 2.0 Physical Exam General Appearance: no apparent distress Respiratory/Chest: no respiratory distress, no accessory muscle use Cardiovascular: regular rate, rhythm, no edema, no murmur Abdomen: normal bowel sounds, non tender, soft Extremities: normal inspection, no pedal edema Neurologic/Psychiatric: no motor/sensory deficits, alert, normal mood/affect Laboratory Results Last 24 Hours Test 09/25/17 07:40 White Blood Count 9.55 K/uL Red Blood Count 3.98 M/uL Hemoglobin 12.3 g/dL Hematocrit 37.2 % Mean Corpuscular Volume 93.5 fL Mean Corpuscular Hemoglobin 30.9 pg Mean Corpuscular Hemoglobin Concent 33.1 g/dl RDW Standard Deviation 45.7 fL RDW Coefficient of Variation 13.3 % Platelet Count 142 K/uL Mean Platelet Volume 9.1 fL Sodium Level 139 mmol/L Potassium Level 3.5 mmol/L Chloride Level 101 mmol/L Carbon Dioxide Level 34 mmol/L Anion Gap 4.0 mmol/L Blood Urea Nitrogen 13 mg/dl Creatinine 0.52 mg/dl Est Creatinine Clear Calc Drug Dose 58.8 ml/min Estimated GFR () 102.4 Estimated GFR (Non- 88.4 BUN/Creatinine Ratio 25.3 Random Glucose 80 mg/dl Calcium Level 8.1 mg/dl Assessment and Plan This is an 82 year old female with a PMH of COPD, tobacco use disorder, iron deficiency anemia, B12 deficiency, hypothyroidism, HTN - presents with worsening shortness of breath, dyspnea on exertion and pleuritic chest pain and subsequently found to have a pneumothorax Secondary Spontaneous Pneumothorax 09/25 appreciate CTS input chest tube removed CXR suggests improvement of pneumothorax, residual emphysema will recheck CXR in AM likely d/c in AM 09/24 doing well, chest tube in place to be removed in AM, possible d/c home in 1-2 days monitor for aspiration 09/23 appreciate CTS input s/p surgical intervention (bleb resection) on 09/22 CXR on 09/23 suggests small apical pneumothorax speech evaluation pending due to trouble swallowing 09/22 presented with a L sided pneumothorax, secondary to her COPD; about 20mm separation She initially wanted conservative management approach to this; but due to worsening pneumothorax, she had a chest tube thoracostomy on 09/19 appreciate cardiothoracic surgery management - chest tube was then removed on Unfortunately, the size of the pneumothorax worsened; on 09/22; CXR performed showing a 2.1 cm pleural separation Plan for now is for possible talc pleurodesis; awaiting further input by cardiothoracic surgery COPD/Tobacco use disorder patient does not want to use nicotine patch at this time does not use inhalers at home for maintenance should have PFTs performed and possible addition of Spiriva vs. ICS/LABA appreciate pulmonary input for further management has completed course of steroids and antibiotics which are no longer needed at this time Pulmonary Cachexia appreciate nutritional consult; patient refusing boost or ensure at this time she is agreeable to small snacks throughout the day which should help Pulmonary Nodule 6-7 mm spiculated nodule noted on the R lower lobe outpatient follow-up in 6 months with repeat chest CT HTN blood pressure slightly elevated this morning, though anxiety playing a part this morning will monitor throughout the day currently on Amlodipine 5mg, low dose HCTZ, and metoprolol for now Iron Deficiency Anemia Hgb is stable has received Venofer in the past outpatient hematology follow-up Hypothyroidism continue Synthroid Hx. of Colon Cancer chronic diarrhea; continue Questran DVT ppx SCDs FULL CODE
[2017-09-25 16:08] VITALS: BP 139/86; PULSE 86; TEMP 36.4; O2SAT 96
[2017-09-25 20:34] VITALS: BP 120/73; PULSE 82
[2017-09-25 23:05] VITALS: BP 123/70; PULSE 70; TEMP 36.1; O2SAT 96
[2017-09-26] MEDS: ACETAMINOPHEN IV 1,000 MG in EMPTY BAG 0 ML IV SCH ×2 (03:06→12:00)
[2017-09-26] MEDS: LEVOTHYROXINE 88 MCG TAB PO SCH (06:07)
[2017-09-26 06:10] VITALS: O2SAT 93
[2017-09-26] MEDS: HEPARIN SOD 5000 UNIT/0.5 ML CARP SQ SCH (06:10)
--- NOTE | 2017-09-26 07:33 | DIAGNOSTIC IMAGING REPORT ---
CHEST ONE VIEW PORTABLE HISTORY: Follow-up pneumothorax COMPARISON: Chest 09/25/2017. FINDINGS: Suture material within the left upper lobe persists. Small amount of gas adjacent to the aortic knob consistent with a pneumothorax. This remains unchanged. There is also a small left apical pleural reflection consistent with a pneumothorax. Small amount of left chest wall subcutaneous emphysema persists. Interstitial thickening at the right lung base persist. Emphysema. The heart is stable in size. IMPRESSION: Small left pneumothorax as described above. Postoperative changes within the left lung apex are again noted. Electronically signed by: Morales Paz M.D. 09/26/2017 7:32 AM Dictated Date/Time: 09/26/2017 7:30 AM
[2017-09-26 08:02] VITALS: BP 132/79; PULSE 85; TEMP 36.3; O2SAT 93
[2017-09-26] MEDS: POTASSIUM CHLORIDE 20 MEQ TABCR PO SCH (09:00)
[2017-09-26] MEDS: DOCUSATE SODIUM 100 MG CAP PO SCH (09:28)
[2017-09-26] MEDS: IPRATROPIUM BROMIDE/ALBUTEROL respimat INH INH SCH (09:28)
[2017-09-26] MEDS: HYDROCHLOROTHIAZIDE 25 MG TAB PO SCH (09:29)
[2017-09-26] MEDS: ASCORBIC ACID 500 MG TAB PO SCH (09:30)
[2017-09-26] MEDS: METOPROLOL TARTRATE 50 MG TAB PO SCH (09:30)
[2017-09-26] MEDS: CHOLECALCIFEROL 1000 INTER.UNIT TAB PO SCH (09:30)
[2017-09-26] MEDS: AMLODIPINE BESYLATE 5 MG TAB PO SCH (09:30)
[2017-09-26] MEDS: CYANOCOBALAMIN 500 MCG TAB (VIT B-12) PO SCH (09:31)
[2017-09-26 09:41] VITALS: O2SAT 95
[2017-09-26] MEDS: CHOLESTYRAMINE LIGHT 4 GM PKT PO SCH (10:00)
--- NOTE | 2017-09-26 11:11 | SURGERY PROGRESS NOTE ---
DATE: 09/26/2017 SUBJECTIVE: Ms. Florentino was seen today on 09/26/2017. We removed her chest tube yesterday. We checked her film this morning and quite frankly I am pleased with it. It really did not look like she really has a pneumothorax at all. I think these are postoperative changes. She looks very good. We did a Two Step and she does not qualify for oxygen. She is on room air with 95% saturations. Her pain is well controlled. Her incisions are clean. Her final pathology did show bullous changes. There is no evidence of malignancy. If she is discharged today, I would like to see her back in the office in about a week with a chest x-ray. We will arrange that. She is ready for discharge. ROBERT
--- NOTE | 2017-09-26 12:16 | Progress Note ---
Subjective Date of Service: Sep 26, 2017. Subjective Pt evaluation today including: conversation w/ patient, physical exam, lab review, review of studies, conversation w/ wine consultant, review of inpatient medication list Saw/examined the patient in room 375 She's doing well, no breathing difficulties some serosanguineous drainage from the chest tube removal site No chest pain Problem List Medical Problems: (1) Pneumothorax Status: Acute (2) Respiratory failure with hypoxia Status: Acute (3) SOB (shortness of breath) Status: Acute Review of Systems Constitutional: No fever, No chills, No weakness Respiratory: No cough, No sputum, No wheezing, No shortness of breath, No dyspnea on exertion, No dyspnea at rest, No hemoptysis Cardiac: No chest pain Medications Current Inpatient Medications Medications (Trade) Dose Ordered Sig/Rosa Isela Route Start Time Stop Time Status Last Admin Dose Admin Amlodipine Besylate (Norvasc Tab) 5 mg DAILY PO 09/18/17 09:00 10/18/17 08:59 09/26/17 09:30 5 MG Cyanocobalamin (Vitamin B-12 Tab) 1,000 mcg DAILY PO 09/18/17 09:00 10/18/17 08:59 09/26/17 09:31 1,000 MCG Folic Acid (Folvite Tab) 1 mg HS PO 09/17/17 21:00 10/17/17 20:59 09/25/17 20:37 1 MG Levothyroxine Sodium (Synthroid Tab) 88 mcg DAILYBB PO 09/18/17 06:00 10/18/17 06:59 09/26/17 06:07 88 MCG Metoprolol Tartrate (Lopressor Tab) 50 mg BID PO 09/17/17 21:00 10/17/17 20:59 09/26/17 09:30 50 MG Ascorbic Acid (Vitamin C Tab) 500 mg DAILY PO 09/18/17 09:00 10/18/17 08:59 09/26/17 09:30 500 MG Cholecalciferol (Vitamin D Tab) 2,000 inter.unit DAILY PO 09/18/17 09:00 10/18/17 08:59 09/26/17 09:30 2,000 INTER.UNIT Cholestyramine Resin (Questran Powder Light) 4 gm BID@1000,2200 PO 09/17/17 22:00 10/17/17 21:59 09/25/17 21:10 4 GM Hydrochlorothiazide (Hydrochlorothiazide Tab) 12.5 mg DAILY PO 09/18/17 09:00 10/18/17 08:59 09/26/17 09:29 12.5 MG Miscellaneous Information (Order Awaiting Action) 1 ea QS N/A 09/18/17 00:00 10/18/17 00:00 Potassium Chloride (Klor-Con Tab) 20 meq QAM PO 09/18/17 09:00 10/18/17 08:59 09/25/17 09:54 20 MEQ Oxycodone HCl (Roxicodone Immediate Rel Tab) 5 mg Q6H PRN PO 09/22/17 19:45 10/06/17 19:44 Acetaminophen 1000 mg/Empty Bag 100 ml @ 400 mls/hr Q8H IV 09/22/17 20:00 10/22/17 19:59 09/26/17 03:06 400 MLS/HR Ondansetron HCl (Zofran Inj) 4 mg Q4H PRN IV 09/22/17 19:45 10/22/17 19:44 Docusate Sodium (coLACE CAP) 100 mg BID PO 09/22/17 21:00 10/22/17 20:59 09/26/17 09:28 100 MG Morphine Sulfate (MoRPHine SULFATE INJ) Q1H PRN IV 09/22/17 19:45 10/06/17 19:44 Heparin Sodium (Porcine) (Heparin Sq 5000 Unit/0.5ml) 5,000 unit Q8 SQ 09/24/17 06:00 10/24/17 05:59 09/26/17 06:10 5,000 UNIT Albuterol/ Ipratropium (Combivent Respimat Inh) 1 puffs QID INH 09/24/17 17:00 10/24/17 16:59 09/26/17 09:28 1 PUFFS Objective Vital Signs Date Time Temp Pulse Resp B/P (MAP) Pulse Ox O2 Delivery O2 Flow Rate FiO2 09/26/17 09:41 95 Room Air 09/26/17 08:02 36.3 85 18 132/79 (96) 93 Nasal Cannula 2.0 09/26/17 07:30 Nasal Cannula 1.0 09/26/17 06:10 93 Nasal Cannula 2.0 09/25/17 23:25 Nasal Cannula 2.0 09/25/17 23:05 36.1 70 16 123/70 (87) 96 Nasal Cannula 2.0 09/25/17 20:34 82 120/73 (89) 09/25/17 16:08 36.4 86 18 139/86 (103) 96 Nasal Cannula 2.0 09/25/17 16:00 Nasal Cannula 2.0 Physical Exam General Appearance: + cachetic, + thin Respiratory/Chest: no respiratory distress, no accessory muscle use, + decreased breath sounds (decreased breath sounds L>R) Cardiovascular: regular rate, rhythm, no edema, no murmur Extremities: normal inspection, no pedal edema Neurologic/Psychiatric: no motor/sensory deficits, alert, normal mood/affect Assessment and Plan This is an 82 year old female with a PMH of COPD, tobacco use disorder, iron deficiency anemia, B12 deficiency, hypothyroidism, HTN - presents with worsening shortness of breath, dyspnea on exertion and pleuritic chest pain and subsequently found to have a pneumothorax Secondary Spontaneous Pneumothorax 09/26 plan to d/c home today will add albuterol PRN for breathing can d/c home with CXR in one week or so 09/25 appreciate CTS input chest tube removed CXR suggests improvement of pneumothorax, residual emphysema will recheck CXR in AM likely d/c in AM 09/24 doing well, chest tube in place to be removed in AM, possible d/c home in 1-2 days monitor for aspiration 09/23 appreciate CTS input s/p surgical intervention (bleb resection) on 09/22 CXR on 09/23 suggests small apical pneumothorax speech evaluation pending due to trouble swallowing 09/22 presented with a L sided pneumothorax, secondary to her COPD; about 20mm separation She initially wanted conservative management approach to this; but due to worsening pneumothorax, she had a chest tube thoracostomy on 09/19 appreciate cardiothoracic surgery management - chest tube was then removed on Unfortunately, the size of the pneumothorax worsened; on 09/22; CXR performed showing a 2.1 cm pleural separation Plan for now is for possible talc pleurodesis; awaiting further input by cardiothoracic surgery COPD/Tobacco use disorder patient does not want to use nicotine patch at this time does not use inhalers at home for maintenance should have PFTs performed and possible addition of Spiriva vs. ICS/LABA appreciate pulmonary input for further management has completed course of steroids and antibiotics which are no longer needed at this time Pulmonary Cachexia appreciate nutritional consult; patient refusing boost or ensure at this time she is agreeable to small snacks throughout the day which should help Pulmonary Nodule 6-7 mm spiculated nodule noted on the R lower lobe outpatient follow-up in 6 months with repeat chest CT HTN blood pressure slightly elevated this morning, though anxiety playing a part this morning will monitor throughout the day currently on Amlodipine 5mg, low dose HCTZ, and metoprolol for now Iron Deficiency Anemia Hgb is stable has received Venofer in the past outpatient hematology follow-up Hypothyroidism continue Synthroid Hx. of Colon Cancer chronic diarrhea; continue Questran DVT ppx SCDs FULL CODE
[2017-09-26] MEDS ORDERED: IPRA1AER2 INH (12:20)
--- NOTE | 2017-09-26 12:22 | Discharge Instructions ---
Discharge Instructions Date of Service Sep 26, 2017. Admission Reason for Admission: Copd, Pneumothorax, Respiratory Failure W/ Hypoxia Discharge Discharge Diagnosis / Problem: Pneumothorax, COPD, Respiratory Failure Discharge Goals Goal(s): Decrease discomfort, Improve function, Diagnostic testing, Therapeutic intervention Activity Recommendations Activity Limitations: resume your previous activity . Instructions / Follow-Up Instructions / Follow-Up Please follow-up with Dr. Ingram in [place] on October 02 at 11:05AM * You will be prescribed Combivent, use one puff four times daily * You will need a chest x-ray in around one week; can get this done with primary care on Thursday * You will need to follow-up with Dr. Bell, you will get a phone call with a date/time * You will be discharged with home health Current Hospital Diet Patient's current hospital diet: Regular Diet Discharge Diet Recommended Diet: Regular Diet Procedures Procedures Performed: Left Video Assisted Thoracoscopy with apical bleb resection, partial pleurectomy Pending Studies Studies pending at discharge: no Medical Emergencies . Who to Call and When: Medical Emergencies: If at any time you feel your situation is an emergency, please call 911 immediately. . Non-Emergent Contact Non-Emergency issues call your: Primary Care Provider . . "Provider Documentation" section prepared by Laurie Greco. . VTE Core Measure Inpt VTE Proph given/why not?: SCD's
--- NOTE | 2017-09-26 12:24 | Discharge Summary ---
Discharge Summary Date of Service Sep 26, 2017. Discharge Summary Admission Date: Sep 17, 2017 at 15:34 Discharge Date: Sep 26, 2017 Discharge Disposition: Home with services Principal Diagnosis: L Pneumothorax COPD Medication Reconciliation New Medications: Ipratropium-Albuterol (Combivent Respimat) 1 Aer Aer 1 PUFFS INH QID for 30 Days, #1 INHALER Continued Medications: Amlodipine (Norvasc) 5 Mg Tab 5 MG PO DAILY Ascorbic Acid (Ascorbic Acid) 1 Pow Pow 500 MG PO DAILY Cholecalciferol (D3 2000) 2,000 Unit Tab 1 TAB PO DAILY Cholestyramine Light (Prevalite) 4 Gm/Dose Pow 4 GM PO BID Cyanocobalamin (Vitamin B-12) 1,000 Mcg Tab 1000 MCG PO DAILY Folic Acid (Folic Acid) 1 Mg Tab 1 TAB PO HS Hydrochlorothiazide (Hydrochlorothiazide) 12.5 Mg Tab 1 TAB PO DAILY Levothyroxine Sodium (Levothyroxine Sodium) 88 Mcg Tab 1 TAB PO QAM Metoprolol Tartrate (Lopressor) (Lopressor) 50 Mg Tab 50 MG PO BID Potassium Bicarbonate (Potassium Bicarbonate) 1 Pow Pow 25 MEQ PO HS Admission Information HPI (per Admitting provider): This is an 82yo F with a PMH of moderate COPD, HTN, tobacco use disorder, hypothyroidism and other medical problems listed below who presents with SOB beginning this morning. Patient states that 2 mornings ago, she woke up with severe pain behind her L shoulder blade that resolved spontaneously throughout the day. This morning, patient was getting ready for the day and became extremely SOB stating that she couldn't catch her breath and felt like she was suffocating. [place] her heart beating very rapidly and felt lightheaded. No chest pain. Called EMS and was found to be hypoxic in the 70s en route to the ED. Patient is a smoker and has >60 pack years. Does not use home O2 or inhalers. Lives alone and ambulates without assistive devices. Has a history of BOB but follows with hematology for IV iron injections. Received her last series 6 months ago and is due back to clinic for a follow-up. Denies fever, chills, headache, visual changes, chest pain, abdominal pain, nausea, vomiting, LE swelling. Has chronic diarrhea s/p R hemicolectomy for colon cancer. H/o C diff. Physical Exam (per Admitting): General Appearance: + mild distress, + pertinent finding (Cachectic, Breathing comfortably with non-rebreather. ) Head: normocephalic, atraumatic Eyes: normal inspection, PERRL, sclerae normal ENT: normal ENT inspection, hearing grossly normal, pharynx normal Neck: supple, thyroid normal, trachea midline Respiratory/Chest: chest non-tender, lungs clear, no respiratory distress, no accessory muscle use, + decreased breath sounds (2/2 shallow breaths ), + pertinent finding (Coarse breath sounds ) Cardiovascular: regular rate, rhythm, no murmur, normal peripheral pulses Abdomen/GI: non tender, soft, no organomegaly Back: normal inspection Extremities/Musculoskelatal: normal inspection, no calf tenderness, no pedal edema Neurologic/Psych: no motor/sensory deficits, alert, normal mood/affect, oriented x 3 Skin: normal color, warm/dry Hospital Course This is an 82 year old female with a PMH of COPD, tobacco use disorder, iron deficiency anemia, B12 deficiency, hypothyroidism, HTN - presents with worsening shortness of breath, dyspnea on exertion and pleuritic chest pain and subsequently found to have a pneumothorax Secondary Spontaneous Pneumothorax 09/26 plan to d/c home today will add albuterol PRN for breathing can d/c home with CXR in one week or so 09/25 appreciate CTS input chest tube removed CXR suggests improvement of pneumothorax, residual emphysema will recheck CXR in AM likely d/c in AM 09/24 doing well, chest tube in place to be removed in AM, possible d/c home in 1-2 days monitor for aspiration 09/23 appreciate CTS input s/p surgical intervention (bleb resection) on 09/22 CXR on 09/23 suggests small apical pneumothorax speech evaluation pending due to trouble swallowing 09/22 presented with a L sided pneumothorax, secondary to her COPD; about 20mm separation She initially wanted conservative management approach to this; but due to worsening pneumothorax, she had a chest tube thoracostomy on 09/19 appreciate cardiothoracic surgery management - chest tube was then removed on Unfortunately, the size of the pneumothorax worsened; on 09/22; CXR performed showing a 2.1 cm pleural separation Plan for now is for possible talc pleurodesis; awaiting further input by cardiothoracic surgery COPD/Tobacco use disorder patient does not want to use nicotine patch at this time does not use inhalers at home for maintenance should have PFTs performed and possible addition of Spiriva vs. ICS/LABA appreciate pulmonary input for further management has completed course of steroids and antibiotics which are no longer needed at this time Pulmonary Cachexia appreciate nutritional consult; patient refusing boost or ensure at this time she is agreeable to small snacks throughout the day which should help Pulmonary Nodule 6-7 mm spiculated nodule noted on the R lower lobe outpatient follow-up in 6 months with repeat chest CT HTN blood pressure slightly elevated this morning, though anxiety playing a part this morning will monitor throughout the day currently on Amlodipine 5mg, low dose HCTZ, and metoprolol for now Iron Deficiency Anemia Hgb is stable has received Venofer in the past outpatient hematology follow-up Hypothyroidism continue Synthroid Hx. of Colon Cancer chronic diarrhea; continue Questran DVT ppx SCDs FULL CODE Total time spent on discharge = 45 minutes This includes examination of the patient, discharge planning, medication reconciliation, and communication with other providers. Discharge Instructions Please follow-up with Dr. Ingram in [place] on October 02 at 11:05AM * You will be prescribed Combivent, use one puff four times daily * You will need a chest x-ray in around one week; can get this done with primary care on Thursday * You will need to follow-up with Dr. Bell, you will get a phone call with a date/time * You will be discharged with home health
[2017-09-26 12:38] VITALS: BP 132/79; PULSE 85; TEMP 36.3; O2SAT 95
== END 2017-09-26 13:55 | disposition home health service (06) | DRG 166 ==
LOC: EDBD 12:31 → C.EDB 12:32 → C.2E 15:34 → ENRESERV 15:44 → EDBEDREQ 09-18 20:04 → ENRESERV 09-18 20:07 → C.MED 09-18 21:58 → ENRESERV 09-22 20:24 → C.2T 09-22 20:54 → ENRESERV 09-24 16:42 → C.MSN 09-24 17:43
PROVIDERS: ADMIT Hospitalist; ATTEND Family Medicine
PROC: 0W9B30Z Drainage of Left Pleural Cavity with Drainage Device, Percutaneous Approach (ICD-10-PCS; 2017-09-19)
PROC: 0BPQX0Z Removal of Drainage Device from Pleura, External Approach (ICD-10-PCS; 2017-09-21)
PROC: 0W9B30Z Drainage of Left Pleural Cavity with Drainage Device, Percutaneous Approach (ICD-10-PCS; principal; 2017-09-22 10:15)
PROC: 0BBG4ZX Excision of Left Upper Lung Lobe, Percutaneous Endoscopic Approach, Diagnostic (ICD-10-PCS; principal; 2017-09-22 10:15)
PROC: 0BBP4ZX Excision of Left Pleura, Percutaneous Endoscopic Approach, Diagnostic (ICD-10-PCS; principal; 2017-09-22 10:15)
PROC: 0BBJ4ZX Excision of Left Lower Lung Lobe, Percutaneous Endoscopic Approach, Diagnostic (ICD-10-PCS; principal; 2017-09-22 10:15)
DX: J44.1 Chronic obstructive pulmonary disease with (acute) exacerbation (principal); J96.21 Acute and chronic respiratory failure with hypoxia; J93.12 Secondary spontaneous pneumothorax; R64 Cachexia; Z68.1 Body mass index [BMI] 19.9 or less, adult; E46 Unspecified protein-calorie malnutrition; R91.1 Solitary pulmonary nodule; J43.9 Emphysema, unspecified; R19.7 Diarrhea, unspecified; E87.6 Hypokalemia; D50.9 Iron deficiency anemia, unspecified; E53.8 Deficiency of other specified B group vitamins; I10 Essential (primary) hypertension; E03.9 Hypothyroidism, unspecified; H35.30 Unspecified macular degeneration; F17.210 Nicotine dependence, cigarettes, uncomplicated; Z79.899 Other long term (current) drug therapy; Z85.038 Personal history of other malignant neoplasm of large intestine; Z86.19 Personal history of other infectious and parasitic diseases; Z88.0 Allergy status to penicillin; Z88.8 Allergy status to other drugs, medicaments and biological substances; Z82.49 Family history of ischemic heart disease and other diseases of the circulatory system

== ENCOUNTER → 2018-03-19 | Outpatient (CLI) | payer MEDICARE, OTHER ==
[~2018-03-19] MED LIST changes: +AMLO5TAB3 PO; +ASCO500T16 PO; +CHOL20007 PO; +CYAN10005 PO; -CZR50; -DYZ; +FLV1 PO; +HYDR12.55 PO; +IPRA1AER2 INH; -K LYTE; +LEVO88TA3 PO; -LEVOXYL; +METO50TA16 PO; +POTA1POW PO; +QSTP/ PO; -VITAMIN D
[2018-03-19 12:22] LABS: BASO % 1.2 %; BASO ABS # 0.06 K/uL (0-0.2); EOS % 2.9 %; EOS ABS # 0.14 K/uL (0-0.5); HEMATOCRIT 42.7 % (37-47); HEMOGLOBIN 14.4 g/dL (12.0-16.0); IG# 0.01 K/uL (0.00-0.02); LYMPH % 21.1 %; LYMPH ABS # 1.03 K/uL (1.2-3.4); MEAN CELL VOLUME 90.1 fL (80-100); MEAN CORPUSCULAR HEMOGLOBIN 30.4 pg (25-34); MEAN CORPUSCULAR HGB CONC 33.7 g/dl (32-36); MEAN PLATELET VOLUME 9.3 fL (7.4-10.4); MONO % 11.3 %; MONO ABS # 0.55 K/uL (0.11-0.59); NEUT % 63.3 %; NEUT ABS # 3.08 K/uL (1.4-6.5); PLATELET COUNT 178 K/uL (130-400); RED CELL DISTRIBUTION WIDTH SD 42.9 fL (36.4-46.3); WHITE BLOOD COUNT 4.87 K/uL (4.8-10.8)
[2018-03-19 12:46] LABS: BLOOD UREA NITROGEN 16 mg/dl (7-18); CALCIUM 9.1 mg/dl (8.5-10.1); CARBON DIOXIDE 32 mmol/L (21-32); CREATININE 0.79 mg/dl (0.60-1.20); GLUCOSE 75 mg/dl (70-99); POTASSIUM 3.5 mmol/L (3.5-5.1); SODIUM 133 mmol/L (136-145)
== END | disposition home or self-care (01) ==
LOC: C.LABPBG 11:12
PROVIDERS: ATTEND Surgery
DX: Z01.818 Encounter for other preprocedural examination (principal); R91.8 Other nonspecific abnormal finding of lung field

== ENCOUNTER 2018-03-26 09:05 | Inpatient (IN) | payer MEDICARE, OTHER ==
[2018-03-09 13:47] VITALS: BMI 16.0
[2018-03-26] VITALS (8 sets, daily range): BP systolic 135–171; BP diastolic 68–89; PULSE 69–77; TEMP 36.3–36.8; O2SAT 92–96; BMI 16.0
[~2018-03-26] VITALS: Ht 162.6 cm; Wt 43.6 kg
[~2018-03-26 09:05] MED LIST changes: +ATROPINE SULFATE 0.1 MG/ML 5ML SYR IV PRN; +EpHEDrine SULFATE INJ 50 MG/ML AMP IV PRN; +HYDROmorphone INJ 2 MG/ML SYR/VIAL IV PRN; +LACTATED RINGER'S 1000ML 1,000 ML IV SCH; +ONDANSETRON INJ 2 MG/ML 2 ML VIAL IV PRN; +PHENYLEPHRINE 100MCG/ML 5ML SYR IV PRN
[2018-03-26] MEDS ORDERED: NEOSTIGMINE METHYLSULFATE 5 MG/5 ML SYR ONE (11:33)
[2018-03-26] MEDS ORDERED: ROCURONIUM BROMIDE 10 MG/ML 5 ML VIAL ONE (11:33)
[2018-03-26] MEDS ORDERED: PROPOFOL IV EMULSION 10 MG/ML 20 ML VIAL ONE (11:33)
[2018-03-26] MEDS ORDERED: FENTANYL CITRATE INJ 50 MCG/1 ML 2 ML VIAL ONE (11:33)
[2018-03-26] MEDS ORDERED: LIDOCAINE HCL 2% 2 ML VIAL (20MG/ML) ONE (11:33)
[2018-03-26] MEDS ORDERED: ONDANSETRON INJ 2 MG/ML 2 ML VIAL ONE ×2 (11:33→18:20)
[2018-03-26] MEDS ORDERED: GLYCOPYRROLATE INJ 0.2 MG/ML VIAL ONE (11:33)
[2018-03-26] MEDS ORDERED: DEXAMETHASONE SOD INJ 4 MG/ML VIAL ONE (11:33)
[2018-03-26] MEDS ORDERED: MIDAZOLAM HCL 1 MG/ML 2ML VIAL ONE (11:33)
--- NOTE | 2018-03-26 14:27 | History & Physical Bridge Note ---
H&P Re-Evaluation Bridge Note: I have examined the patient, reviewed the History & Physical and in the interval since the performance of the History & Physical I have noted the following changes of clinical significance: No changes noted
--- NOTE | 2018-03-26 14:33 | History and Physical ---
History & Physical Date Mar 26, 2018. Chief Complaint "I'm here for my surgery." History of Present Illness The patient is a 82 year old female with complaints of an asymptomatic mass in her RLL. Worked her up for a clinical trial, but she did not qualify. Poor lung function. Here for a diagnostic and therapeutic wedge resection. Past Medical/Surgical History Medical Problems: (1) COPD (chronic obstructive pulmonary disease) (2) History of Clostridium difficile infection (3) Hypertension (4) Hypothyroidism (5) BOB (iron deficiency anemia) (6) Macular degeneration (senile) of retina, unspecified (7) Osteoporosis (8) Tobacco use disorder (9) Venous insufficiency Surgical Problems: (1) H/O partial resection of colon Additional History Hepatic Disease: No Endocrine Disorder: No Kidney Disease: No Hypertension: Yes Heart Disease: No Bleeding Tendencies: No Infectious Diseases: No Other: COPD Allergies Coded Allergies: Penicillins (Verified Allergy, Intermediate, RASH; HAS TOLERATED MEFOXIN, 03/26/18) NEGAR Inhibitors (Verified Adverse Reaction, Intermediate, SEVERE COUGH, ) Home Medications Scheduled Amlodipine (Norvasc), 5 MG PO QAM Ascorbic Acid (Ascorbic Acid), 500 MG PO QPM Cholecalciferol (Vitamin D3), 1 TAB PO QAM Cyanocobalamin (Vitamin B-12), 1,000 MCG PO QPM Folic Acid (Folic Acid), 1 TAB PO QPM Hydrochlorothiazide (Hydrochlorothiazide), 1 TAB PO QAM Levothyroxine Sodium (Levothyroxine Sodium), 1 TAB PO QAM Metoprolol Tartrate (Lopressor) (Lopressor), 50 MG PO BID Potassium Bicarbonate (Potassium Bicarbonate), 25 MEQ PO HS Scheduled PRN Cholestyramine (Prevalite), 1 DOSE PO BID PRN for Diarrhea Ipratropium-Albuterol (Combivent Respimat), 1 PUFFS INH QID PRN for Shortness of Breath Physical Examination Skin: warm/dry, no rash Eyes: normal inspection, EOMI, sclerae normal ENT: normal ENT inspection, pharynx normal Head: normocephalic, atraumatic Neck: supple, no adenopathy, trachea midline Respiratory/Chest: lungs clear, normal breath sounds, no respiratory distress, + pertinent finding (Decreased breath sounds.) Cardiovascular: regular rate, rhythm, no edema, no murmur Abdomen / GI: normal bowel sounds, non tender Extremities: normal inspection, normal range of motion Plan of Treatment Right VATS with wedge resection.
[2018-03-26] MEDS ORDERED: BUPIVACAINE 0.25% 30 ML VIAL ONE (14:39)
[2018-03-26] MEDS ORDERED: SODIUM CHLORIDE 0.9% PF 50 ML VIAL ONE (14:40)
[2018-03-26] MEDS ORDERED: BUPIVACAINE LIPOSOME 1/3% 266 MG/20 ML VIAL ONE (14:40)
[2018-03-26] MEDS ORDERED: ALBUT/IPRATROP 3MG/0.5MG NEB 3 ML VIAL INH ONE (15:00)
[2018-03-26] MEDS ORDERED: CLINDAMYCIN PHOS 150 MG/ML 2 ML VIAL ONE (15:34)
[2018-03-26] MEDS ORDERED: PHENYLEPHRINE 100MCG/ML 5ML SYR ONE (15:42)
[2018-03-26] MEDS ORDERED: EpHEDrine SULFATE INJ 50 MG/ML AMP ONE (16:15)
--- NOTE | 2018-03-26 17:18 | [facility] Post Operative Brief Note ---
Immediate Operative Summary Operative Date Mar 26, 2018. 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 Bell Oxygen Plant Operator Surgeon(s) none Estimated Blood Loss 10ml Findings Consistent with Post-Op Diagnosis Specimens Frozen section #1 right lower mass for margin/diagnosis sent 1550 Anesthesia Type General
[2018-03-26] MEDS ORDERED: MoRPHine SULFATE 4 MG/ML 1 ML CARP\\VIAL IV PRN ×3 (17:45→20:00)
[2018-03-26] MEDS ORDERED: ONDANSETRON INJ 2 MG/ML 2 ML VIAL IV PRN (17:45)
[2018-03-26] MEDS ORDERED: IPRATROPIUM BROMIDE/ALBUTEROL respimat INH INH PRN (17:45)
--- NOTE | 2018-03-26 18:17 | Anesthesiology Progress Note ---
Anesthesia Post Op Note Date & Time Mar 26, 2018 at 18:17 Vital Signs Pain Intensity: 0 Vital Signs Past 12 Hours Date Time Temp Pulse Resp B/P (MAP) Pulse Ox O2 Delivery O2 Flow Rate FiO2 03/26/18 18:11 159/83 03/26/18 18:08 64 20 95 03/26/18 18:08 64 20 03/26/18 18:06 154/97 03/26/18 18:03 63 17 94 03/26/18 18:03 63 17 03/26/18 18:01 163/81 03/26/18 17:58 67 20 03/26/18 17:58 74 20 95 03/26/18 17:57 70 19 03/26/18 17:57 68 19 94 03/26/18 17:56 168/87 03/26/18 17:52 68 17 94 03/26/18 17:52 66 17 03/26/18 17:51 159/83 03/26/18 17:47 72 18 118/94 93 03/26/18 17:47 71 18 03/26/18 17:43 178/96 03/26/18 17:42 69 21 92 03/26/18 17:42 69 21 03/26/18 17:37 74 18 03/26/18 17:37 74 18 173/88 94 03/26/18 17:33 164/105 03/26/18 17:32 78 23 03/26/18 17:32 138 23 166/113 99 03/26/18 17:32 35.6 77 17 164/105 97 Oxymask 10 03/26/18 14:54 69 16 96 Room Air 03/26/18 09:38 36.4 70 20 171/89 92 Room Air Notes Mental Status: alert / awake / arousable, participated in evaluation Pt Amnestic to Procedure: Yes Nausea / Vomiting: adequately controlled Pain: adequately controlled Airway Patency, RR, SpO2: stable & adequate BP & HR: stable & adequate Hydration State: stable & adequate Anesthetic Complications: no major complications apparent
--- NOTE | 2018-03-26 18:19 | DIAGNOSTIC IMAGING REPORT ---
CHEST ONE VIEW PORTABLE CLINICAL HISTORY: s/p VATS COMPARISON STUDY: Chest radiograph January 25, 2018. FINDINGS: A right apical chest tube is in place. A large right pneumothorax is noted. Pneumothorax likely occupies at least 50% of the right hemithorax. Subcutaneous gas within the right chest wall is noted. There is no left pneumothorax. Postoperative findings within the left lung are noted. Right lower lung opacity is noted. There is no evidence for pulmonary edema. Severe underlying emphysema is noted. IMPRESSION: Large right pneumothorax with right apical chest tube in place. Electronically signed by: Piyush Telles M.D. 03/26/2018 6:17 PM Dictated Date/Time: 03/26/2018 6:15 PM
[2018-03-26] MEDS: D5W AND 1/2NSS 1,000 ML IV SCH (20:00)
[2018-03-26] MEDS: METOPROLOL TARTRATE 50 MG TAB PO SCH (20:54)
[2018-03-26] MEDS: ASCORBIC ACID 500 MG TAB PO SCH (20:54)
[2018-03-26] MEDS: CYANOCOBALAMIN 500 MCG TAB (VIT B-12) PO SCH (20:55)
--- NOTE | 2018-03-26 21:54 | OPERATIVE REPORT ---
DATE OF OPERATION: 03/26/2018 PREOPERATIVE DIAGNOSIS: Enlarging right lower lobe mass. POSTOPERATIVE DIAGNOSIS: Non-small cell lung carcinoma, right lower lobe. PROCEDURE: Right thoracoscopy with a wedge resection of right lower lobe nodule. SURGEON: Ramiro Bell MD HEALTH COMPANION: nurses assistant ANESTHESIA: General anesthesia with endotracheal intubation with a single lumen tube. SPECIFICS OF PROCEDURE AND FINDINGS: Leticia Florentino is a patient who is well known to me. 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 I met her in September when she had a spontaneous pneumothorax and performed a right thoracoscopy and did a wedge resection. The patient has since stopped smoking, but she was noted to have a small nodule in her right lower lobe. I followed this up with a CT scan and indeed it had grown. She had no adenopathy. We had a long talk about this. I tried to enroll her at the [facility] trial comparing sublobar resections versus SBRT; however, we could not get a tissue diagnosis. I did do a mediastinoscopy and her nodes were negative. On 03/26/2018, I brought the patient to the operating room and did an uncomplicated wedge resection. This case is straightforward. She had really no adhesions. I was quite pleased with the port placement. We used CO2 insufflation. At the conclusion of the case, we noted we had a very large air leak. For this reason, I put in my scope back in and looked. I spent over an hour and I could never find even a tiny air leak. I did not know how to explain this, however, I finally closed and she was able to be extubated and even though she has a sizeable pneumothorax, she really does not have that large an air leak on waterseal. As stated, I used several liters of warm saline, placed the patient in Trendelenburg and used multiple different maneuvers to try to localize this air leak including looking at it under saline which is clear. I never did find even a single bubble. The patient tolerated well and was extubated in the room. DESCRIPTION OF PROCEDURE: The patient brought to operating room and laid in supine position. General anesthesia induced. Endotracheal intubation performed with single lumen tube. The patient was placed in a left lateral decubitus position, right chest prepped and draped in usual sterile fashion. Five 5 mm port was placed about the fifth interspace anterior to the latissimus dorsi and then a 5 mm port was placed just posterior to the scapular tip. The 5 mm scope was placed and it could be seen that we were in good position. I placed a 12 mm port just anterior to the midaxillary line and just above the diaphragm. This worked very well and we were able to grasp this mass which I saw imbricating the pleura. We lifted it up and I did a generous wedge resection with using a stapler. An Endobag was used to remove this. I then sent it off for frozen section. While waiting, we mixed 266 mg of Exparel with 250 mL of normal saline and 30 mL of 0.25% Marcaine and not only injected each of the 3 port sites but injected the 2nd to the 11th rib for a block. Frozen section came back as a non-small cell lung carcinoma and we had clean resection margins. We looked for some lymph nodes, but she really did not have anything including the level 10, 2 and 4 areas and I had done a mediastinoscopy before. For this reason, I elected to close. I looked closely for an air leak and particularly our staple line which did not leak at all. I then looked it gently, had a bulla in the left apex medially and again this did not leak air at all. I then placed a 24-Kiswahili chest tube directed towards the apex and sutured in place with heavy silk suture through the inferior most port. We then inflated the lung, did not see any leak and we went to close and we noted there was a sizeable leak through the chest tube. We then removed the chest tube, put her ports back and placed the patient in marked Trendelenburg, filled the chest with warm saline and carefully inspected every area of the lung. I could not find a new leak. The staple line certainly did not leak and I looked it that at least a dozen times. She was not leaking from the apex at all. The right upper lobe was not leaking. I then placed the patient back in a reverse Trendelenburg and filled the lower portion up and I did not see evidence of any injury of any bleeding and I could not find a leak. After closely inspecting the lung, I put the chest tube back in and again she had a leak. I removed it and again put my ports back in and closely inspected from the medial, superior, and inferior up in this fissure and then posterior. The patient had no adhesions. I had excellent visualization of the lung. Again, we filled this with warm saline and again I could not find a leak. I was able to fill the entire chest with saline and then I was able to go under the saline with the scope where I could see and I did not see a leak anywhere. We then suctioned out the saline. I sutured a 24-Kiswahili chest tube to the inferior port site with 0 silk and directing towards the apex. The muscle layers were all closed with 0 Vicryl and then 4-0 Monocryl was used to close the wound. We were able to extubate the patient without difficulty, although she did have a leak. Her chest x-ray showed a pretty sizable pneumothorax, but she was able to be weaned out to nasal cannula. I am going to see how she does with this leak. We placed antimicrobial dressings and moved her to the postanesthesia care unit. Otherwise, she tolerated the procedure quite well. I attest to the content of the Intraoperative Record and any orders documented therein. Any exceptions are noted below. ROBERT
[2018-03-27] VITALS (12 sets, daily range): BP systolic 125–180; BP diastolic 73–109; PULSE 66–80; TEMP 36.5–36.9; O2SAT 80–95; Ht 162.6 cm; Wt 43.6 kg
[2018-03-27] MEDS: LEVOTHYROXINE 88 MCG TAB PO SCH (05:20)
--- NOTE | 2018-03-27 08:01 | DIAGNOSTIC IMAGING REPORT ---
CHEST ONE VIEW PORTABLE CLINICAL HISTORY: 82 years-old Female presenting with pneumothorax. TECHNIQUE: Portable upright AP view of the chest was obtained. COMPARISON: 03/26/2018. FINDINGS: Large bore right pleural drain remains positioned at the right apex. Extensive associated soft tissue emphysema along the right chest wall extending to the base of the neck. Atherosclerosis of the aorta. Cardiac silhouette normal in size. Interval decrease in the moderate right pneumothorax, which now has a pleural separation of 42 mm, previously 66 mm. Slight improved aeration of the right lung. Flattening of the diaphragms. Extensive postsurgical changes of both lungs with multiple suture margins. No left pneumothorax. Suspected osteopenia. IMPRESSION: 1. Interval decreased size of the now moderate right pneumothorax with the right pleural drain in place. 2. Postsurgical changes of the lungs. 3. Suspected underlying emphysema. Electronically signed by: Kingsley Claros M.D. 03/27/2018 7:59 AM Dictated Date/Time: 03/27/2018 7:57 AM
[2018-03-27] MEDS: D5W AND 1/2NSS 1,000 ML IV SCH ×2 (08:04→21:15)
[2018-03-27] MEDS: METOPROLOL TARTRATE 50 MG TAB PO SCH ×2 (09:16→21:17)
[2018-03-27] MEDS: HYDROCHLOROTHIAZIDE 25 MG TAB PO SCH (09:16)
[2018-03-27] MEDS: AMLODIPINE BESYLATE 5 MG TAB PO SCH (09:17)
--- NOTE | 2018-03-27 10:28 | SURGERY PROGRESS NOTE ---
DATE: 03/27/2018 Leticia looks great today. She has been ambulating in the hallway. She did have some desaturation when ambulating, but this quickly rebounded. She is on a nasal cannula. She still has a sizeable air leak, but it is smaller. Her x-ray shows a decrease in the size of her pneumothorax. She does have decreased breath sounds. Her pain is well controlled. All in all, I am quite pleased with Leticia Florentino. We are going to continue our current therapy and I am hopeful that this air leak continues to improve and her lung completely expands. She is postop day 1 status post a resection of a nonsmall cell lung carcinoma.
[2018-03-27] MEDS: MoRPHine SULFATE 2 MG/ML CARP IV PRN ×2 (11:53→16:29)
[2018-03-27] MEDS ORDERED: NURSING VERBAL MED ORDER ONE (16:45)
[2018-03-27] MEDS ORDERED: LORAZEPAM 0.5 MG TAB PO PRN (17:00)
[2018-03-27] MEDS: CYANOCOBALAMIN 500 MCG TAB (VIT B-12) PO SCH (21:16)
[2018-03-27] MEDS: ASCORBIC ACID 500 MG TAB PO SCH (21:16)
[2018-03-28] VITALS (13 sets, daily range): BP systolic 119–167; BP diastolic 69–89; PULSE 70–86; TEMP 36.8–37.1; O2SAT 79–96
[2018-03-28] MEDS: LEVOTHYROXINE 88 MCG TAB PO SCH (05:46)
--- NOTE | 2018-03-28 06:54 | DIAGNOSTIC IMAGING REPORT ---
CHEST ONE VIEW PORTABLE CLINICAL HISTORY: Pneumothorax. COMPARISON STUDY: Chest radiograph March 27, 2018. FINDINGS: A moderate right pneumothorax has slightly decreased in size since prior exam. Superior pleural separation measures 4.1 cm. A right apical chest tube is in place. Subcutaneous gas within the right chest wall and neck is noted. Right basilar opacity persists. There is emphysema. There are postoperative findings within each lung. IMPRESSION: 1. Slight decrease in size of a moderate right apical pneumothorax. Right chest place. 2. Persistent subcutaneous gas within the right chest wall and neck. Electronically signed by: Piyush Telles M.D. 03/28/2018 6:52 AM Dictated Date/Time: 03/28/2018 6:50 AM
[2018-03-28] MEDS: D5W AND 1/2NSS 1,000 ML IV SCH ×2 (09:16→21:05)
[2018-03-28] MEDS: METOPROLOL TARTRATE 50 MG TAB PO SCH ×2 (09:18→21:04)
[2018-03-28] MEDS: HYDROCHLOROTHIAZIDE 25 MG TAB PO SCH (09:18)
[2018-03-28] MEDS: AMLODIPINE BESYLATE 5 MG TAB PO SCH (09:19)
--- NOTE | 2018-03-28 12:33 | SURGERY PROGRESS NOTE ---
DATE: 03/28/2018 Ms. Florentino is seen today 48 hours after her wedge resection for a non-small cell lung carcinoma. She had a large air leak in the operating room; however, we were able to extubate her. I really could not find a leak. Her x-ray yesterday had improved from her immediate postoperative film. Her pneumothorax was smaller. I thought her air leak was also smaller, but we kept her on waterseal. She did have some increasing subcutaneous emphysema; however, this morning, her air leak is definitely better. I put her on 10 cm of water suction. Her air leak was not continuous. She does have more subcutaneous emphysema. She is sitting up after eating breakfast. She is doing well on room air with a saturation of 90%. I feel better about this. We will continue to have her ambulate. I thought she looked very good today. ROBERT
[2018-03-28] MEDS: CYANOCOBALAMIN 500 MCG TAB (VIT B-12) PO SCH (21:00)
[2018-03-28] MEDS: ASCORBIC ACID 500 MG TAB PO SCH (21:04)
[2018-03-29] MEDS: MoRPHine SULFATE 2 MG/ML CARP IV PRN ×2 (01:23→13:16)
[2018-03-29] MEDS: LEVOTHYROXINE 88 MCG TAB PO SCH (05:28)
[2018-03-29 06:59] VITALS: BP 160/72; PULSE 70; TEMP 36.9; O2SAT 96
--- NOTE | 2018-03-29 07:49 | Anesthesiology Progress Note ---
Anesthesia Post Op Note Date & Time Mar 29, 2018 at 07:49 Vital Signs Pain Intensity: 9.0 Vital Signs Past 12 Hours Date Time Temp Pulse Resp B/P (MAP) Pulse Ox O2 Delivery O2 Flow Rate FiO2 03/29/18 06:59 36.9 70 19 160/72 (101) 96 Nasal Cannula 2.0 03/28/18 23:45 Nasal Cannula 2.0 03/28/18 22:44 36.9 77 16 167/89 (115) 96 Room Air 03/28/18 21:02 86 150/75 (100) 03/28/18 20:22 93 Nasal Cannula 2.0 03/28/18 20:18 79 Room Air Notes Mental Status: alert / awake / arousable, participated in evaluation Pt Amnestic to Procedure: Yes Nausea / Vomiting: adequately controlled Pain: adequately controlled Airway Patency, RR, SpO2: stable & adequate BP & HR: stable & adequate Hydration State: stable & adequate Anesthetic Complications: no major complications apparent
--- NOTE | 2018-03-29 09:04 | DIAGNOSTIC IMAGING REPORT ---
CHEST ONE VIEW PORTABLE CLINICAL HISTORY: wedge resection PNEUMOTHORAX COMPARISON STUDY: March 28, 2018 FINDINGS: There is severe pulmonary emphysema. There is a right-sided chest tube present. There is an equivocal tiny right apical pneumothorax the pleural separation of 8 mm. There is extensive right-sided subcutaneous emphysema. There is no lobar consolidation.[ There are suture lines present within the left upper lung zone. Basilar opacities are likely atelectatic IMPRESSION: 1. Extensive right-sided subcutaneous emphysema 2. The right-sided chest tube remains in position. There is a tiny residual 8mm right apical pneumothorax Electronically signed by: Erick Rivera M.D. 03/29/2018 9:03 AM Dictated Date/Time: 03/29/2018 9:00 AM
[2018-03-29] MEDS: D5W AND 1/2NSS 1,000 ML IV SCH ×2 (09:06→22:22)
[2018-03-29] MEDS: METOPROLOL TARTRATE 50 MG TAB PO SCH ×2 (09:08→20:50)
[2018-03-29] MEDS: AMLODIPINE BESYLATE 5 MG TAB PO SCH (09:08)
[2018-03-29] MEDS: HYDROCHLOROTHIAZIDE 25 MG TAB PO SCH (09:09)
[2018-03-29] MEDS ORDERED: NURSING VERBAL MED ORDER ONE ×2 (12:15→18:45)
[2018-03-29 14:54] VITALS: BP 149/73; PULSE 75; TEMP 36.7; O2SAT 97
--- NOTE | 2018-03-29 17:30 | SURGERY PROGRESS NOTE ---
DATE: 03/29/2018 Ms. Florentino was seen today. Her x-ray looks better. Pneumothorax is much smaller. Her air leak is smaller. I put her on regular suction at 20 cm of water. She has very little drainage. She still has subcutaneous emphysema, but she is only on 1 liter of O2 with good saturations. At this point, we are going to continue our current therapy until her air leak resolves and we can remove this and allow her to be discharged. Pathology is still pending.
[2018-03-29] MEDS ORDERED: CLOBETASOL PROPIONATE 0.05% OINT 15 GM TUBE EXT PRN (18:45)
[2018-03-29 20:48] VITALS: BP 156/74; PULSE 75
[2018-03-29] MEDS: CYANOCOBALAMIN 500 MCG TAB (VIT B-12) PO SCH (20:49)
[2018-03-29] MEDS: ASCORBIC ACID 500 MG TAB PO SCH (20:50)
[2018-03-29 23:05] VITALS: BP 142/77; PULSE 71; TEMP 36.9; O2SAT 89
[2018-03-29 23:09] VITALS: O2SAT 94
[2018-03-30] VITALS (9 sets, daily range): BP systolic 148–169; BP diastolic 74–90; PULSE 75–90; TEMP 36.8–37.2; O2SAT 84–96
[2018-03-30] MEDS: MoRPHine SULFATE 2 MG/ML CARP IV PRN ×3 (02:43→23:20)
[2018-03-30] MEDS: LEVOTHYROXINE 88 MCG TAB PO SCH (05:31)
--- NOTE | 2018-03-30 09:04 | Clinical Documentation Query ---
CLINICAL DOCUMENTATION QUERY Dr. FERRARA, BMI: A significantly high (>40) or significantly low (<19) BMI will impact the severity of illness and risk of mortality of your patient. However, the physician must document a correlating diagnosis in the medical record. In your clinical opinion is this patient: ( X ) Underweight ( ) Not Agree ( ) Other explanation of clinical findings (No explanation is considered a No Response) ( ) Unable to determine ( ) Need to Discuss (Phone CDS or qliq) (No discussion is considered a No Response) The medical record reflects the following clinical findings, treatment, and risk factors. Clinical Indicators: 82 yo female presenting with RLL lung cancer. Review of client care specialist assessment indicates pt had reported that she has not had a good appetite for "quite a while." Treatment: HS snack, monitor wts and I/O Risk Factors:COPD, lung cancer, age Please clarify and document your clinical opinion in the progress notes and discharge summary. Terms such as "probable", "suspected", "likely", "questionable", "possible", or "still to be ruled out" are acceptable. IF IN AGREEMENT, YOU MUST DOCUMENT ABOVE DIAGNOSTIC STATEMENT IN DAILY PROGRESS NOTES AND DISCHARGE SUMMARY. This document is not part of the patient's record. Thank You, Any Cotton, RN [phone]
[2018-03-30] MEDS: AMLODIPINE BESYLATE 5 MG TAB PO SCH (09:49)
[2018-03-30] MEDS: METOPROLOL TARTRATE 50 MG TAB PO SCH ×2 (09:49→20:52)
[2018-03-30] MEDS: HYDROCHLOROTHIAZIDE 25 MG TAB PO SCH (09:52)
[2018-03-30] MEDS: D5W AND 1/2NSS 1,000 ML IV SCH (10:59)
--- NOTE | 2018-03-30 12:26 | DIAGNOSTIC IMAGING REPORT ---
CHEST ONE VIEW PORTABLE CLINICAL HISTORY: 82 years-old Female presenting with lung resection . TECHNIQUE: Portable upright AP view of the chest was obtained. COMPARISON: 03/29/2018. FINDINGS: Large bore right pleural drain remains has been advanced superiorly since the prior radiograph. Extensive associated soft tissue emphysema along the right chest wall tracking into the base of the neck and anteriorly. Atherosclerosis of aortic arch. Cardiac silhouette mildly enlarged. Lungs are hyperinflated. Postsurgical changes of suture margins again noted in the left upper lung. Persistent minimal hazy opacity at the right lung base. Improved aeration of the left lung base. Trace right apical pneumothorax noted medially. Osteopenia. IMPRESSION: 1. Improved aeration of the left lung base. 2. Suspected minimal atelectasis or postsurgical change at the right lung base. 3. Underlying emphysema. 4. Superior advancement of the right pleural drain. Trace right apical pneumothorax. 5. Extensive chest wall subcutaneous emphysema. Electronically signed by: Kingsley Claros M.D. 03/30/2018 12:25 PM Dictated Date/Time: 03/30/2018 12:23 PM
[2018-03-30] MEDS ORDERED: NURSING VERBAL MED ORDER ONE (12:30)
--- NOTE | 2018-03-30 18:04 | SURGERY PROGRESS NOTE ---
DATE: 03/30/2018 Leticia Florentino was seen today on 03/30/2018. She is on 1 L of O2 with 92% saturations. Her chest tube is a bit positional. She still has an air leak and has developed subcutaneous emphysema; however, her chest x-ray today shows essentially complete expansion of her lung. I am quite pleased with that. She does not appear to have a pleural effusion. Her air leak is persistent but small. She has markedly emphysematous lungs. Otherwise, she is ambulating in the hallway and tolerating her diet. I am quite pleased. Her final pathology is not out yet; however, it appears that we are indeed dealing with a nonsmall cell lung carcinoma and have clear margins. [facility]
[2018-03-30] MEDS: POTASSIUM BICARB PO SCH (20:52)
[2018-03-30] MEDS: CITRATE PO SCH (20:52)
[2018-03-30] MEDS: ASCORBIC ACID 500 MG TAB PO SCH (20:54)
[2018-03-30] MEDS: CYANOCOBALAMIN 500 MCG TAB (VIT B-12) PO SCH (20:55)
[2018-03-30] MEDS: CHOLESTYRAMINE LIGHT 4 GM PKT PO PRN (20:58)
[2018-03-31] VITALS (12 sets, daily range): BP systolic 121–179; BP diastolic 71–90; PULSE 74–96; TEMP 36.8–36.9; O2SAT 90–95
[2018-03-31] MEDS: LEVOTHYROXINE 88 MCG TAB PO SCH (05:19)
--- NOTE | 2018-03-31 07:40 | DIAGNOSTIC IMAGING REPORT ---
CHEST ONE VIEW PORTABLE CLINICAL HISTORY: Pneumothorax. COMPARISON STUDY: Chest radiograph March 30, 2018. FINDINGS: A right apical chest tube is in place. A small right basilar pneumothorax is noted. There may be a trace lateral compartment as well. Subcutaneous gas within the right chest wall and neck is noted. Postoperative findings within each lung are noted. There is emphysema. Mild right lower lung opacity is noted. This is unchanged. Cardiac size is normal. There is no evidence for pulmonary edema. IMPRESSION: 1. Small right basilar pneumothorax, slightly increased from previous. Right chest tube in place. 2. No change in minimal right basilar opacity. Electronically signed by: Piyush Telles M.D. 03/31/2018 7:39 AM Dictated Date/Time: 03/31/2018 7:34 AM
[2018-03-31] MEDS: AMLODIPINE BESYLATE 5 MG TAB PO SCH (07:43)
[2018-03-31] MEDS: HYDROCHLOROTHIAZIDE 25 MG TAB PO SCH (07:43)
[2018-03-31] MEDS: METOPROLOL TARTRATE 50 MG TAB PO SCH ×2 (07:43→20:23)
[2018-03-31] MEDS ORDERED: LIDOCAINE HCL 1% 20 ML VIAL ONE (08:32)
--- NOTE | 2018-03-31 19:27 | SURGERY PROGRESS NOTE ---
DATE: 03/31/2018 Ms. Florentino was seen today on postoperative day #5. We did a wedge resection of a non-small cell lung carcinoma of right lower lobe and the patient has an air leak. Her air leak has gotten better and better. Her chest tube does not appear to be working well. We did pull it back a few times and repositioned it and did get an air leak and then it stopped. At any rate, her subcutaneous emphysema is stable; in fact, I think it is better now than it was yesterday. Her x-ray shows essentially full expansion of her lung. If she does not have an air leak tomorrow morning, we will pull her chest tube. Overall, though, I am quite pleased with her. Other than the subcutaneous emphysema, she has done quite well. She is between 1 and 2 liters of O2 and has done well with that. She is ambulating in the hallway. Her official path is pending, but it does appear to be a non-small cell lung carcinoma and the margin too appeared to be negative. We will continue our current therapy and hopefully get her chest tube out in the near future. ROBERT
[2018-03-31] MEDS: POTASSIUM BICARB PO SCH (20:23)
[2018-03-31] MEDS: ASCORBIC ACID 500 MG TAB PO SCH (20:23)
[2018-03-31] MEDS: CYANOCOBALAMIN 500 MCG TAB (VIT B-12) PO SCH (20:23)
[2018-03-31] MEDS: CITRATE PO SCH (20:23)
[2018-03-31] MEDS: CHOLESTYRAMINE LIGHT 4 GM PKT PO PRN (22:16)
[2018-03-31] MEDS: MoRPHine SULFATE 2 MG/ML CARP IV PRN (23:59)
[2018-04-01] VITALS (11 sets, daily range): BP systolic 138–155; BP diastolic 81–91; PULSE 71–92; TEMP 36.4–37; O2SAT 81–97
[2018-04-01] MEDS: LEVOTHYROXINE 88 MCG TAB PO SCH (05:27)
--- NOTE | 2018-04-01 07:39 | DIAGNOSTIC IMAGING REPORT ---
CHEST ONE VIEW PORTABLE CLINICAL HISTORY: Pneumothorax. COMPARISON STUDY: Chest radiograph March 31, 2018. FINDINGS: A right-sided chest tube has been partially withdrawn. A small right pneumothorax has increased in size with superior pleural separation of 1.4 cm. There are postoperative findings within each lung. Extensive subcutaneous gas within the right chest and neck is noted. Right paratracheal opacity is noted as well as right basilar opacity. Cardiac size is normal. IMPRESSION: Partial withdrawal of the right chest tube. Increase in size of a small right pneumothorax. Persistent subcutaneous gas. Electronically signed by: Piyush Telles M.D. 04/01/2018 7:37 AM Dictated Date/Time: 04/01/2018 7:36 AM
[2018-04-01] MEDS: HYDROCHLOROTHIAZIDE 25 MG TAB PO SCH (08:25)
[2018-04-01] MEDS: AMLODIPINE BESYLATE 5 MG TAB PO SCH (08:25)
[2018-04-01] MEDS: METOPROLOL TARTRATE 50 MG TAB PO SCH ×2 (08:26→22:23)
--- NOTE | 2018-04-01 08:48 | SURGERY PROGRESS NOTE ---
DATE: 04/01/2018 Leticia patterson was seen this morning. She is now 6 days status post a resection of a nonsmall cell lung carcinoma locally. Her lungs were such she would not tolerate a lobectomy. She is 93% on 2 L this morning. Her chest tube is really not draining any fluid and I do not see an air leak today. Reviewing her x-ray, it is difficult to say whether she has a pneumothorax, but her subcutaneous emphysema is definitely less. I am going to see how she looks later on today. I may pull this chest tube. If she requires another one, we will place it anteriorly, but I am hopeful that her air leak has sealed.
--- NOTE | 2018-04-01 12:38 | DIAGNOSTIC IMAGING REPORT ---
CHEST ONE VIEW PORTABLE CLINICAL HISTORY: chest tube clamped COMPARISON STUDY: Chest radiograph April 01, 2018 at 7:08 AM. FINDINGS: Right chest tube has been partially withdrawn. One sidehole is located outside of the pleural space. A small right pneumothorax is noted, slightly decreased in size since prior exam. Apical component measures 8 mm. Small right basilar component is noted. Severe emphysema is noted. There are postoperative findings within each lung. There are trace bilateral pleural effusions with mild bibasilar opacities. Subcutaneous gas persists. IMPRESSION: Small right pneumothorax, slightly decreased in size since previous exam. Partially withdrawn chest tube with one sidehole outside of the pleural space. Electronically signed by: Piyush Telles M.D. 04/01/2018 12:37 PM Dictated Date/Time: 04/01/2018 12:33 PM
--- NOTE | 2018-04-01 12:41 | DIAGNOSTIC IMAGING REPORT ---
CHEST ONE VIEW PORTABLE CLINICAL HISTORY: tube removal COMPARISON STUDY: Chest radiograph April 01, 2018 at 11:49 AM. FINDINGS: Right chest tube has been removed. A small to moderate right pneumothorax has increased in size. Superior pleural separation measures 2.3 cm. Subcutaneous trace gas within the right chest wall and neck is noted. There are trace bilateral pleural effusions with mild right basilar opacity. Emphysema is noted with postoperative findings within each lung. IMPRESSION: Interval chest tube removal. Small to moderate right pneumothorax, increased in size since prior exam. Electronically signed by: Piyush Telles M.D. 04/01/2018 12:39 PM Dictated Date/Time: 04/01/2018 12:37 PM
[2018-04-01] MEDS: POTASSIUM BICARB PO SCH (22:22)
[2018-04-01] MEDS: CITRATE PO SCH (22:22)
[2018-04-01] MEDS: ASCORBIC ACID 500 MG TAB PO SCH (22:23)
[2018-04-01] MEDS: CYANOCOBALAMIN 500 MCG TAB (VIT B-12) PO SCH (22:25)
[2018-04-02 02:45] VITALS: O2SAT 95
[2018-04-02] MEDS: LEVOTHYROXINE 88 MCG TAB PO SCH (06:04)
--- NOTE | 2018-04-02 07:43 | DIAGNOSTIC IMAGING REPORT ---
CHEST ONE VIEW PORTABLE CLINICAL HISTORY: Pneumothorax. COMPARISON STUDY: Chest radiograph April 01, 2018 12:27 PM. FINDINGS: Postoperative findings within each lung are noted. A small right pneumothorax has mildly decreased in size. The apical and basilar components have decreased. Subcutaneous trace gas within the right chest wall and neck persists. There is emphysema. Cardiac size is normal. There is no evidence for pulmonary edema. Mild right lower lung opacity persists. IMPRESSION: 1. Slight decrease in size of a small right pneumothorax. 2. Persistent chest wall and neck subcutaneous gas. 3. Mild right lower lung opacity which is similar to previous exam. Electronically signed by: Piyush Telles M.D. 04/02/2018 7:42 AM Dictated Date/Time: 04/02/2018 7:37 AM
[2018-04-02 08:02] VITALS: BP 136/88; PULSE 86; TEMP 36.5; O2SAT 95
[2018-04-02] MEDS: AMLODIPINE BESYLATE 5 MG TAB PO SCH (08:35)
[2018-04-02] MEDS: METOPROLOL TARTRATE 50 MG TAB PO SCH ×2 (08:35→23:55)
[2018-04-02] MEDS: HYDROCHLOROTHIAZIDE 25 MG TAB PO SCH (08:36)
[2018-04-02 08:46] VITALS: O2SAT 95
--- NOTE | 2018-04-02 10:19 | Surgery Progress Note ---
Subjective Date of Service: Apr 02, 2018. Pt. feels slight fatigue and a little SOB with activity. No CP. She is ambulating in hallway, voiding without difficult, and tolerating diet. Objective Vitals Date Time Temp Pulse Resp B/P (MAP) Pulse Ox O2 Delivery O2 Flow Rate FiO2 04/02/18 08:46 95 Nasal Cannula 2.0 04/02/18 08:02 36.5 86 24 136/88 (104) 95 Room Air 04/02/18 07:25 Nasal Cannula 2.0 04/02/18 02:45 95 Nasal Cannula 2.0 04/01/18 23:24 97 Nasal Cannula 2.0 04/01/18 22:47 36.4 92 16 144/91 (108) 94 Nasal Cannula 2.0 04/01/18 22:21 86 150/91 (110) 04/01/18 16:05 95 Nasal Cannula 2.0 04/01/18 14:57 37.0 81 18 138/81 (100) 94 Nasal Cannula 2.0 Physical Exam General: + well developed, + well nourished, No distress CV: + RRR Pulmonary: + pertinent finding (BS are decreased on right side.), No accessory muscle use, No respiratory distress Extremities: No calf tenderness Neurologic: + alert & oriented x 3 Radiology CXR today showed improvement in right apical pneumothorax Assessment & Plan 82 year old female with non-small cell lung cancer -right lung wedge resection performed -chest tube removed on 04/01/18: -post-pull CXR showed right apical pneumothorax which has improved on serial CXR -pt. to stay inpt. with plans to repeat CXR in am -will keep on 2 liters of oxygen due to pneumothorax -encourage coughing, deep breathing, and ambulation OTHER -lovenox in place for DVT prevention
[2018-04-02] MEDS ORDERED: ENOXAPARIN 40 MG/0.4 ML SYR SQ ONE (10:24)
[2018-04-02 11:36] VITALS: BP 129/77; PULSE 78; TEMP 37.2; O2SAT 95
[2018-04-02 11:50] LABS: HEMATOCRIT 39.7 % (37-47); HEMOGLOBIN 13.3 g/dL (12.0-16.0); MEAN CELL VOLUME 90.4 fL (80-100); MEAN CORPUSCULAR HEMOGLOBIN 30.3 pg (25-34); MEAN CORPUSCULAR HGB CONC 33.5 g/dl (32-36); MEAN PLATELET VOLUME 9.3 fL (7.4-10.4); PLATELET COUNT 188 K/uL (130-400); RED CELL DISTRIBUTION WIDTH CV 13.2 % (11.5-14.5); RED CELL DISTRIBUTION WIDTH SD 43.4 fL (36.4-46.3); WHITE BLOOD COUNT 5.59 K/uL (4.8-10.8)
[2018-04-02 12:21] LABS: CREATININE 0.59 mg/dl (0.60-1.20)
[2018-04-02] MEDS: CHOLESTYRAMINE LIGHT 4 GM PKT PO PRN (12:56)
[2018-04-02 15:07] VITALS: BP 127/88; PULSE 78; TEMP 36.6; O2SAT 96
[2018-04-02] MEDS: HEPARIN SOD 5000 UNIT/0.5 ML CARP SC SCH (15:32)
[2018-04-02 22:50] VITALS: BP 152/88; PULSE 79; TEMP 36.8; O2SAT 92
[2018-04-02] MEDS: POTASSIUM BICARB PO SCH (23:55)
[2018-04-02] MEDS: CITRATE PO SCH (23:55)
[2018-04-02] MEDS: ASCORBIC ACID 500 MG TAB PO SCH (23:55)
[2018-04-02] MEDS: CYANOCOBALAMIN 500 MCG TAB (VIT B-12) PO SCH (23:55)
[2018-04-03] MEDS: HEPARIN SOD 5000 UNIT/0.5 ML CARP SC SCH ×2 (00:22→09:35)
[2018-04-03] MEDS: LEVOTHYROXINE 88 MCG TAB PO SCH (05:59)
--- NOTE | 2018-04-03 07:18 | DIAGNOSTIC IMAGING REPORT ---
CHEST ONE VIEW PORTABLE CLINICAL HISTORY: pneumothorax COMPARISON STUDY: April 02, 2018 FINDINGS: There is radiographic evidence of emphysema. There is extensive right-sided subcutaneous emphysema. There is a right apical pneumothorax the pleural separation of 15 mm. There is a small right pleural effusion. There is a nonspecific 17 mm right infrahilar nodule.[ IMPRESSION: 1. 15 mm right apical pneumothorax 2. Severe subcutaneous emphysema 3. Small right pleural effusion 4. Nonspecific 17 mm right infrahilar nodule Electronically signed by: Erick Rivera M.D. 04/03/2018 7:17 AM Dictated Date/Time: 04/03/2018 7:15 AM
[2018-04-03] MEDS ORDERED: TYLOTC325 PO (08:01)
--- NOTE | 2018-04-03 08:03 | Discharge Instructions ---
Discharge Instructions Date of Service Apr 03, 2018. Admission Reason for Admission: Right Lung Mass Discharge Discharge Diagnosis / Problem: Lung Cancer Discharge Goals Goal(s): Learn about illness Activity Recommendations Activity Limitations: as noted below Lifting Limitations: none 1. Do not drive until cleared to do so by Dr. Bell . Instructions / Follow-Up Instructions / Follow-Up 1. Office appointment with Dr. Bell in 1 week. Office will call with date and time of appointment. Go to hospital one hour before appointment to have a chest x-ray taken. 2. You may remove remaining dressings on 04/04/18 and shower thereafter. No tub baths. Current Hospital Diet Patient's current hospital diet: Regular Diet Discharge Diet Recommended Diet: Regular Diet Procedures Procedures Performed: Right Video Assisted Thoracic Surgery with Right Lower Wedge Resection Pending Studies Studies pending at discharge: no Medical Emergencies . Who to Call and When: Medical Emergencies: If at any time you feel your situation is an emergency, please call 911 immediately. . Non-Emergent Contact Non-Emergency issues call your: Surgeon Call Non-Emergent contact if: you have a fever, your pain is not controlled, wound has increased drainage . "Provider Documentation" section prepared by Tomás Ledezma. .
[2018-04-03 08:21] VITALS: BP 110/90; PULSE 88; TEMP 36.5; O2SAT 96
[2018-04-03] MEDS: AMLODIPINE BESYLATE 5 MG TAB PO SCH (08:58)
[2018-04-03] MEDS: METOPROLOL TARTRATE 50 MG TAB PO SCH (08:59)
[2018-04-03] MEDS: HYDROCHLOROTHIAZIDE 25 MG TAB PO SCH (08:59)
[2018-04-03] MEDS ORDERED: ENOXAPARIN 40 MG/0.4 ML SYR SQ SCH (09:00)
--- NOTE | 2018-04-03 09:28 | DISCHARGE SUMMARY ---
DISCHARGE DIAGNOSES: 1. Nonsmall cell lung carcinoma, right lower lobe. 2. Prolonged air leak. 3. Chronic obstructive pulmonary disease. 4. Long history of cigarette smoking. 5. History of bullous emphysema. HOSPITAL COURSE: Leticia Florentino is an 82-year-old female I know well. She had a hypermetabolic nodule which was growing in her right lower lobe and on 03/26/2018, I did a thoracoscopic wedge resection. This was a very simple case. However, she had a large air leak and I could not find the etiology. I finally closed her after looking for this leak for well over an hour. She had a pneumothorax initially but it got smaller and then her air leak got smaller and smaller. I finally pulled her chest tube 2 days ago. She has a small pneumothorax but her subcutaneous emphysema is decreasing. She is on 2 L of O2. I am going to send her home and will see her back in a few days. Her incisions are clean. She was having very little pain and specifically stated she wanted no narcotics to go home. We will get her set up for a return visit with an x-ray. I have of course told her to call me should she run into any problems. Leticia Florentino has terrible lung function. She will not tolerate any further surgery on her lungs. She has a long smoking history with terrible bullous emphysema. Unfortunately, this nodule was not in an area that she was a candidate for a segmentectomy. We did do a mediastinoscopy as part of her staging workup and all of her nodes were negative. This is a stage I carcinoma. The patient is going to be relocating to [place], [place] and we will make sure that we sent all of her appropriate records with her. She needs to be followed by an oncologist and if she does have a local recurrence that she may be a candidate for SBRT.
[2018-04-03 10:19] VITALS: BP 110/90; PULSE 88; TEMP 36.5; O2SAT 96
[2018-04-03 12:05] VITALS: BP 110/80; PULSE 80; TEMP 36.3; O2SAT 93
--- NOTE | 2018-04-07 15:14 | EDITING REQUIRED CODING QUERY ---
CODING QUERY To promote full compliance with coding requirements relating to patient care, provider participation is requested in all cases of clinical support nurse uncertainty. Please assist us with the question(s) below: Coding Question(s): Please clarify below, in your clinical opinion, regarding the Air Leak, Pneumothorax and Subcutaneous Emphysema. ( ) These were likely postoperative complications ( ) These were Not likely postoperative complications Physician's Response(s): This was an intraoperative complication. Thank you Jessica Fernández Principal Diagnosis: "_that condition established after study, to be chiefly responsible for occasioning the admission of the patient to the hospital for care." Co-Existing Principal Diagnosis: "_when two or more diagnoses equally meet the criteria for principal diagnosis as determined by the circumstances of admission, diagnostic work up, and/or therapy provided, and the Alphabetic Index, Tabular List, or another coding guideline does not provide sequencing direction, any one of the diagnoses may be sequenced first." "When the physician has documented what appears to be a current diagnosis in the body of the record, but has not included the diagnosis in the final diagnostic statement, the physician should be asked whether the diagnosis should be added." (Source [facility]oding [facility] 2 QTR90. p3-4)
== END 2018-04-03 13:56 | disposition home health service (06) | DRG 167 ==
LOC: C.ACU 09:05 → C.MSN 14:30 → ENRESERV 18:42
PROVIDERS: ADMIT Surgery; ATTEND Surgery
PROC: 0W9930Z Drainage of Right Pleural Cavity with Drainage Device, Percutaneous Approach (ICD-10-PCS; principal; 2018-03-26 10:55)
PROC: 0BBF4ZX Excision of Right Lower Lung Lobe, Percutaneous Endoscopic Approach, Diagnostic (ICD-10-PCS; principal; 2018-03-26 10:55)
DX: C34.31 Malignant neoplasm of lower lobe, right bronchus or lung (principal); J95.812 Postprocedural air leak; J95.811 Postprocedural pneumothorax; T81.82XA Emphysema (subcutaneous) resulting from a procedure, initial encounter; J44.9 Chronic obstructive pulmonary disease, unspecified; I10 Essential (primary) hypertension; E03.9 Hypothyroidism, unspecified; H35.30 Unspecified macular degeneration; M81.0 Age-related osteoporosis without current pathological fracture; Z51.81 Encounter for therapeutic drug level monitoring; Z79.899 Other long term (current) drug therapy; Z87.891 Personal history of nicotine dependence; Z88.0 Allergy status to penicillin; Z88.8 Allergy status to other drugs, medicaments and biological substances; Y83.8 Other surgical procedures as the cause of abnormal reaction of the patient, or of later complication, without mention of misadventure at the time of the procedure; Y92.234 Operating room of hospital as the place of occurrence of the external cause; Y92.239 Unspecified place in hospital as the place of occurrence of the external cause; Y99.8 Other external cause status

== ENCOUNTER → 2018-04-06 | Outpatient (CLI) | payer OTHER ==
[~2018-04-06] MED LIST changes: -ATROPINE SULFATE 0.1 MG/ML 5ML SYR IV PRN; -EpHEDrine SULFATE INJ 50 MG/ML AMP IV PRN; -HYDROmorphone INJ 2 MG/ML SYR/VIAL IV PRN; -LACTATED RINGER'S 1000ML 1,000 ML IV SCH; -ONDANSETRON INJ 2 MG/ML 2 ML VIAL IV PRN; -PHENYLEPHRINE 100MCG/ML 5ML SYR IV PRN; +TYLOTC325 PO
--- NOTE | 2018-04-06 13:07 | DIAGNOSTIC IMAGING REPORT ---
CHEST 2 VIEWS ROUTINE CLINICAL HISTORY: LUNG MASS COMPARISON STUDY: 04/03/2018 FINDINGS: Slight improvement compared to the prior study. Potential nodule hilar density right base persists. There is small right effusion. Subcutaneous emphysema over the right hemithorax a low right cervical region is slightly improved. Small right apical pneumothorax has diminished in 14 to 11 mm in terms of pleural separation. Emphysematous change appears similar. IMPRESSION: Mildly improved exam with a slight decrease in volume of a small right apical pneumothorax. Slight improvement in subcutaneous emphysema over the right hemithorax. Several lower right rib fractures improved in visibility compared to the prior exam. The above report was generated using voice recognition software. It may contain grammatical, syntax or spelling errors. Electronically signed by: Dominguez Mendez M.D. 04/06/2018 1:05 PM Dictated Date/Time: 04/06/2018 12:59 PM
--- NOTE | 2018-04-06 13:41 | DIAGNOSTIC IMAGING REPORT ---
VENOUS DOPPLER LWR EXT BILA HISTORY: LEG PAIN COMPARISON STUDY: None. FINDINGS: There is normal compressibility, flow, and augmentation within the bilateral lower extremity deep venous systems. IMPRESSION: No DVT within the right or left lower extremity. The above report was generated using voice recognition software. It may contain grammatical, syntax or spelling errors. Electronically signed by: Dominguez Mendez M.D. 04/06/2018 1:40 PM Dictated Date/Time: 04/06/2018 1:40 PM
== END | disposition home or self-care (01) ==
LOC: C.ULTRBC 12:24
PROVIDERS: ATTEND Surgery
DX: G89.18 Other acute postprocedural pain (principal); R91.8 Other nonspecific abnormal finding of lung field

== ENCOUNTER 2019-02-09 20:03 | Inpatient (IN) ==
[2019-02-09] MEDS ORDERED: ONDANSETRON INJ 2 MG/ML 2 ML VIAL IV STA ×2 (20:29→20:46)
[2019-02-09] MEDS ORDERED: ACETAMINOPHEN 1,000 MG/100 ML VIAL IV STA (20:41)
[2019-02-09] MEDS ORDERED: SODIUM CHLORIDE 0.9% 1000ML 500 ML IV ONE (20:46)
[2019-02-09] MEDS: MoRPHine SULFATE 2 MG/ML CARP IV PRN ×3 (20:50→23:07)
--- NOTE | 2019-02-09 21:09 | Emergency Department Note ---
Entered by Mitchell Rene acting as a scribe for Khris Kay MD History of Present Illness General Chief complaint: Abdominal Pain Time Seen by Provider: 02/09/19 20:34 Source: patient History of Present Illness Onset (ago): hour(s) (1.5) Location: abdomen Pain Consistency: + other (waxing and waning) Quality: + other (generalized abdominal pain) Associated symptoms: + chest pain, + shortness of breath and + other (back pain) The patient is an 83 year old female who present to the Emergency Room with complaints of waxing and waning generalized abdominal pain beginning at 19:00, about 1.5 hours prior to arrival. The patient reports that after taking medication for thrush at that time, she developed abdominal pain. She was unable to have a bowel movement but did pass some gas. She states that her abdominal pain then worsened after she stood, and she developed pain in her chest and back along with diaphoresis. She states that her pain comes in waves, everywhere from my throat to my bottom. She also becomes short of breath when her pain is at its worst. She states that she was not given anything for pain in the ambulance. The patient states that her last bowel movement yesterday was normal. She states that she has a history of COPD, lung cancer, and right lung surgery as well as pneumothorax last year. She chronically wears oxygen. She states that she has an aortic aneurysm. She also reports that she had an intestinal surgery 10 years ago. She denies any kidney problems. Home Medications Home Medications Medication Instructions Recorded Confirmed Type amlodipine [Norvasc] 5 mg PO QAM 04/23/18 01/24/19 History ascorbic acid (vitamin C) 500 mg PO QPM 04/23/18 01/24/19 History cholecalciferol (vitamin D3) 4,000 unit PO DAILY 04/23/18 01/24/19 History [Vitamin D3] cholestyramine-aspartame 1 packet PO BID 04/23/18 01/24/19 History [Prevalite] hydrochlorothiazide [Microzide] 12.5 mg PO QAM 04/23/18 01/24/19 History ipratropium-albuterol [Combivent 1 puff INHALATION QID PRN 04/23/18 01/24/19 History Respimat] levothyroxine [Synthroid] 88 mcg PO DAILY 04/23/18 01/24/19 History metoprolol tartrate [Lopressor] 50 mg PO BID 04/23/18 01/24/19 History potassium bicarb-citric acid 25 meq PO DAILY 04/23/18 01/24/19 History [Klor-Con/EF] betamethasone, augmented 1 applic TOPICAL BID 06/13/18 01/24/19 History cyanocobalamin (vitamin B-12) 1,000 mcg PO DAILY 06/13/18 01/24/19 History [Vitamin B-12] lorazepam [Ativan] 0.5 mg PO TID PRN #14 tab 06/13/18 01/24/19 Rx Allergies Allergy/AdvReac Type Severity Reaction Status Date / Time Penicillins Allergy Intermediate RASH; HAS Verified 01/24/19 13:02 TOLERATED MEFOXIN NEGAR Inhibitors AdvReac Intermediate SEVERE Verified 01/24/19 13:02 COUGH Past Med/Surg History Medical History Hypertension (Chronic) Tobacco use disorder (Chronic) Osteoporosis (Chronic) Venous insufficiency (Chronic) Hypothyroidism (Chronic) Macular degeneration (senile) of retina, unspecified (Chronic) BOB (iron deficiency anemia) (Chronic) History of Clostridium difficile infection (Chronic) COPD exacerbation (Acute) COPD (chronic obstructive pulmonary disease) (Chronic) Surgical History H/O partial resection of colon S/P cholecystectomy S/P hysterectomy S/P thyroidectomy Family History Other Family history non-contributory Social History marital status: / Current Living Situation: Alone Feels Safe at Home: Yes Smoking Status: Unknown if ever smoked Review of Systems See HPI for pertinent positives & negatives. and A total of 10 systems reviewed and were otherwise negative Physical Exam Vital Signs Vital Signs - 24 hr 02/09/19 20:15 02/09/19 21:00 02/09/19 21:30 Temperature 36.8 C Temperature Source Oral Sepsis Recent Fever Within 48 Hours No Sepsis Action Taken by Nursing No Action Required Pulse Rate 69 69 71 Pulse Rate from SpO2 Sensor 68 70 Pulse Rhythm Regular Pulse Strength Normal Respiratory Rate 24 24 23 Respiratory Effort / Characteristics Non-Labored Respiratory Depth Normal Respiratory Pattern Regular Blood Pressure 165/78 H 170/86 H 162/76 H Blood Pressure Mean 107 114 104 Pulse Oximetry 95 98 98 Oxygen Delivery Method Room Air Nasal Cannula Oxygen Flow Rate 2 2 2 02/09/19 22:10 02/09/19 22:26 02/09/19 22:29 Temperature Temperature Source Sepsis Recent Fever Within 48 Hours Sepsis Action Taken by Nursing Pulse Rate 73 73 78 Pulse Rate from SpO2 Sensor 73 74 78 Pulse Rhythm Pulse Strength Respiratory Rate 18 18 19 Respiratory Effort / Characteristics Respiratory Depth Respiratory Pattern Blood Pressure 163/83 H 151/80 H 150/83 H Blood Pressure Mean 109 103 105 Pulse Oximetry 96 97 96 Oxygen Delivery Method Oxygen Flow Rate 2 2 02/09/19 22:30 02/09/19 22:35 02/09/19 22:40 Temperature Temperature Source Sepsis Recent Fever Within 48 Hours Sepsis Action Taken by Nursing Pulse Rate 79 85 90 Pulse Rate from SpO2 Sensor 80 86 90 Pulse Rhythm Pulse Strength Respiratory Rate 20 20 20 Respiratory Effort / Characteristics Respiratory Depth Respiratory Pattern Blood Pressure 155/80 H 130/73 135/66 Blood Pressure Mean 105 92 89 Pulse Oximetry 97 96 96 Oxygen Delivery Method Nasal Cannula Oxygen Flow Rate 2 02/09/19 22:45 02/09/19 22:51 02/09/19 22:55 Temperature Temperature Source Sepsis Recent Fever Within 48 Hours Sepsis Action Taken by Nursing Pulse Rate 90 93 H 94 H Pulse Rate from SpO2 Sensor 90 92 H 95 H Pulse Rhythm Pulse Strength Respiratory Rate 20 30 H 29 H Respiratory Effort / Characteristics Respiratory Depth Respiratory Pattern Blood Pressure 120/76 140/75 132/72 Blood Pressure Mean 90 96 92 Pulse Oximetry 96 95 94 Oxygen Delivery Method Oxygen Flow Rate 2 2 2 02/09/19 23:00 02/09/19 23:05 Temperature Temperature Source Sepsis Recent Fever Within 48 Hours Sepsis Action Taken by Nursing Pulse Rate 100 H 101 H Pulse Rate from SpO2 Sensor 100 H 101 H Pulse Rhythm Pulse Strength Respiratory Rate 28 H 22 Respiratory Effort / Characteristics Respiratory Depth Respiratory Pattern Blood Pressure 110/72 139/90 Blood Pressure Mean 84 106 Pulse Oximetry 95 94 Oxygen Delivery Method Oxygen Flow Rate 2 2 GENERAL: Patient is in moderate distress from pain. HEENT: No acute trauma, normocephalic atraumatic, mucous membranes moist, no nasal congestion, no scleral icterus. NECK: No stridor, no adenopathy, no meningismus, trachea is midline. LUNGS: Minimal breath sounds on the right side. Left side is without wheezes or rhonchi. No respiratory distress. HEART: Without murmurs gallops or rubs, regular rate and rhythm. ABDOMEN: Soft, diffusely moderately tender, bowel sounds positive, no hernias, no peritonitis. EXTREMITIES: No cyanosis or edema, full range of motion of all the joints without pain or difficulty, no signs for acute trauma. NEUROLOGIC: Oriented x 3, no acute motor or sensory deficits, no focal weakness. SKIN: No rash, no jaundice, no diaphoresis. Course 2036: The patient was evaluated in room C4. A complete history and physical examination were performed. 2225: I consulted Dr. Rivera Radiology. He states that the patient's imaging is suspicious for possible type A dissection. 2235: I talked to the patient and family at length about current findings. 2246: The patients blood pressure is now 120/76. 2255: I consulted Dr. Franc Rocha Cardiothoracic Surgery. He states that given the patient's age if no dissection flap is seen, this would require medical management. 2303: I consulted Dr. Ivy Rocha Hospitalist. The patient will be reevaluated for hospitalization. 2306: I updated the patient and family on the current plan for hospitalization. The patient is currently filling out paperwork in case of . Administered Medications Ioversol (Optiray 320 125ml) 119 ml IV ONCE PRN PRN Reason: Interaction Checking Stop: 02/13/19 22:01 Last Admin: 02/09/19 22:02 Dose: 119 ml Documented by: [id number] Morphine Sulfate (Morphine Sulfate) 2 mg IV Q15M PRN PRN Reason: Pain Stop: 02/23/19 20:40 Last Admin: 02/09/19 23:07 Dose: 2 mg Documented by: [id number] Admin: 02/09/19 21:27 Dose: 2 mg Documented by: [id number] Admin: 02/09/19 20:50 Dose: 2 mg Documented by: [id number] Discontinued Medications Hydralazine HCl (Hydralazine Hcl) 10 mg IV NOW STA Stop: 02/09/19 22:23 Last Admin: 02/09/19 22:28 Dose: 10 mg Documented by: [id number] Acetaminophen (Ofirmev) 1,000 mg in 100 mls @ 400 mls/hr IV NOW STA Stop: 02/09/19 20:55 Last Infusion: 02/09/19 21:00 Dose: 0 mls/hr Documented by: [id number] Admin: 02/09/19 20:50 Dose: 400 mls/hr Documented by: [id number] Sodium Chloride (Nss 1000ml) 500 mls @ 999 mls/hr IV .Q31M ONE Stop: 02/09/19 21:16 Last Infusion: 02/09/19 21:19 Dose: 0 mls/hr Documented by: [id number] Admin: 02/09/19 20:50 Dose: 999 mls/hr Documented by: [id number] Ondansetron HCl (Zofran) 4 mg IV NOW STA Stop: 02/09/19 20:30 Last Admin: 02/09/19 20:36 Dose: 4 mg Documented by: [id number] Medical Decision Making Differential Diagnosis Differential diagnosis: intestinal colic, bowel obstruction, diverticulitis, bowel perforation, aortic dissection, aneurysm, ME, renal colic, constipation Medical Records Attestation: I reviewed the patient's medical records. Home Medications Current Medication List: was personally reviewed by me Laboratory Data Attestation: I reviewed the patient's lab results. Result diagrams: 02/09/19 21:10 02/09/19 21:10 Lab Results 02/09/19 02/09/19 Range/Units 21:10 21:10 WBC 5.68 (4.8-10.8) K/uL RBC 4.07 L (4.2-5.4) M/uL Hgb 12.7 (12.0-16.0) g/dL Hct 37.8 (37-47) % MCV 92.9 (80-100) fL MCH 31.2 (25-34) pg MCHC 33.6 (32-36) g/dL RDW Std Deviation 45.8 (36.4-46.3) fL RDW Coeff of Lyle 13.5 (11.5-14.5) % Plt Count 133 (130-400) K/uL MPV 9.2 (7.4-10.4) fL Immature Gran % (Auto) 0.2 % Neut % (Auto) 69.8 % Lymph % (Auto) 16.0 % [place] % (Auto) 11.1 % Eos % (Auto) 2.5 % Baso % (Auto) 0.4 % Immature Gran # (Auto) 0.01 (0.00-0.02) K/uL Neut # (Auto) 3.97 (1.4-6.5) K/uL Lymph # (Auto) 0.91 L (1.2-3.4) K/uL [place] # (Auto) 0.63 H (0.11-0.59) K/uL Eos # (Auto) 0.14 (0-0.5) K/uL Baso # (Auto) 0.02 (0-0.2) K/uL Sodium 138 (136-145) mmol/L Potassium 3.8 (3.5-5.1) mmol/L Chloride 99 (98-107) mmol/L Carbon Dioxide 35 H (21-32) mmol/L Anion Gap 4.0 (3-11) BUN 19 H (7-18) mg/dl Creatinine 0.83 (0.6-1.2) mg/dl Est Cr Clr Drug Dosing 34.6 ml/min Est GFR ( Amer) 75.1 Est GFR (Non-Af Amer) 64.8 BUN/Creatinine Ratio 22.2 H (10-20) Glucose 105 H (70-99) mg/dl Calcium 8.3 L (8.5-10.1) mg/dl Magnesium 1.9 (1.8-2.4) mg/dl Total Bilirubin 0.7 (0.2-1) mg/dl AST 24 (15-37) U/L ALT 28 (12-78) U/L Alkaline Phosphatase 71 (45-117) U/L Troponin I < 0.015 (0-0.045) ng/ml Total Protein 5.8 L (6.4-8.2) gm/dl Albumin 3.2 L (3.4-5.0) gm/dl Globulin 2.6 (2.5-4.0) gm/dl Albumin/Globulin Ratio 1.2 (0.9-2) Lipase 53 L (73-393) U/L Imaging Data Radiologist's Impression: Radiology results as stated below per my review and the radiologist's interp retation: CT abd pelvis IV con only CLINICAL HISTORY: Chest and abdominal pain COMPARISON STUDY: CT scan performed August 2009 TECHNIQUE: The patient was scanned in a dynamic helical fashion during intravenous administration of 1 19 cc of Optiray 320. A dose lowering technique was utilized adhering to the principles of ALARA. CT DOSE: FINDINGS: Lower chest: Postsurgical changes are present within the lower lobes. The distal aspect of the intervertebral thoracic aortic hematoma is visualized. There are no significant pleural effusions Liver: No focal hepatic masses are visualized. There is mild biliary ductal prominence likely secondary to a reservoir effect in a patient status post cholecystectomy Gallbladder: Surgically absent Spleen: Normal in size and attenuation. Pancreas: Unremarkable. Adrenal glands: Unremarkable. Kidneys: There are bilateral renal cysts. No solid renal masses are visualized. There is no hydronephrosis. Bowel: Evaluation of bowel is a limited given the possibility of intra-abdominal fat and the absence of orally administered contrast. There are no transition zone to indicate bowel obstruction. There is evidence for prior colonic surgery with a left abdominal colonic suture line. There is no evidence of acute diverticulitis. The appendix is not visualized with certainty. Peritoneum: There is a possible loculated extraluminal fluid collection within the left upper quadrant measuring 42 mm. This is best visualized image #[id number]. Vasculature: There are moderately extensive atheromatous changes within the aorta and mesenteric vessels and iliac vessels. Adenopathy: None. Pelvic viscera: The uterus appears surgically absent. Skeletal structures: No destructive osseous lesions are seen. IMPRESSION: 1. Difficult study to interpret given the paucity of intra-abdominal fat and the lack of orally administered contrast 2. Possible extraluminal loculated left lower quadrant fluid collection measuring 42 mm. 3. No evidence of bowel obstruction. No evidence of free air 4. Mild intra and extrahepatic biliary ductal dilatation, possibly secondary to a reservoir effect in a patient status post cholecystectomy 5. Extensive atheromatous change within the aorta iliac and mesenteric vessels Electronically signed by: Erick Rivera M.D. 02/09/2019 10:[address] angio chest wo/w con CT DOSE: 628.59 mGy.cm CLINICAL HISTORY: Atypical chest pain radiating to the abdomen. Possible aortic dissection. TECHNIQUE: Unenhanced images were initially acquired through the chest. CT angiographic images were then acquired in a dynamic helical fashion during intravenous administration of 119 cc of Optiray 320. MIP imaging was performed. A dose lowering technique was utilized adhering to the principles of ALARA. COMPARISON STUDY: Noncontrast chest CT dated 12/27/2018 FINDINGS: Noncontrast images reveal increased attenuation surrounding the thoracic aorta consistent with an intramural hematoma. Postcontrast images reveal no dissection flap. There is a descending thoracic aortic aneurysm measuring 4 cm. There is no pericardial effusion. The heart is mildly enlarged. There are no pulmonary artery filling defects to indicate acute pulmonary embolism. There are no pathologically enlarged axillary, mediastinal, or hilar lymph nodes. There is pulmonary emphysema. There are bilateral postsurgical changes. There are scattered areas of atelectasis/scarring. There are no new or enlarging pulmonary nodules. There is stable narrowing of the takeoff of the right middle lobe bronchus. IMPRESSION: 1. Acute intramural hematoma of the aorta involving the aortic arch and descending thoracic aorta. A discrete dissection flap is not visualized 2. 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 Severe emphysema and postsurgical changes of bilateral wedge resections. 4. No enlarging masses 5. No evidence of pathologic adenopathy Electronically signed by: Erick Rivera M.D. 02/09/2019 10:17 PM XR chest 1V portable CLINICAL HISTORY: Shortness of breath COMPARISON STUDY: No previous studies for comparison. FINDINGS: There is radiographic evidence of emphysema. There are bilateral postsurgical changes with bilateral suture lines. The heart remains the upper limits of normal in size. There is no failure. There is no focal pulmonary consolidation. There is a stable right infrahilar tubular density, possibly representing a prominent vessel. There are no significant pleural effusions. IMPRESSION: 1. No acute intrathoracic findings 2. Severe emphysema and bilateral postsurgical change Electronically signed by: Erick Rivera M.D. 02/09/2019 9:11 PM ECG Data Attestation: I personally reviewed and interpreted this ECG as follows: Indication: abdominal pain Rate (beats per minute): 70 Rhythm: normal sinus Findings: + other (LVH) and + PAC (a few); no PVC, no ST depression and no ST elevation Blood Pressure Blood Pressure Findings: Elevated blood pressure Blood Pressure Disposition: further management by hospitalist MARY Narrative There is no leukocytosis or concerning anemia. No significant electrolyte abnormality or kidney failure. No elevation to the liver enzymes. Lipase was not elevated. EKG shows a sinus rhythm, no acute ischemia. Cardiac enzyme testing x1 is not consistent with acute cardiac injury. Chest x-ray shows chronic findings, no pneumonia or CHF. Abdominal and pelvis CT shows some chronic findings, no bowel obstruction, no acute surgical process. Chest CT shows evidence for an intramural hematoma along the proximal aorta. No true dissection flap was seen. The patient received IV Tylenol, IV morphine and IV Zofran. She was given IV saline. She was given a dose of IV hydralazine. Her blood pressure is improve d. I had a discussion with the patient and her family. She is not sure if she would survive surgery, I also am not sure if surgery is an option. The decision was made to contact [facility] cardiothoracic surgery in [place]. I spoke with Dr. Bruner of cardiothoracic surgery. Based on the patient's past history, her age, the findings on CT, he recommended medical management. No reason for cardiothoracic surgical intervention. The patient was made aware of my conversation with the specialist. She is feeling improved. Her family was made aware of the diagnosis. The patient understands that the finding could be lethal. She has opted to stay at our hospital for medical management. Case management is aware of her situation. The on-call hospitalist was consulted. Impression & Plan Intramural aortic hematoma, Precordial chest pain, Epigastric abdominal pain Discharge Plan Visit Data Chief Complaint: Abdominal Pain ED Provider: Khris Kay Discharge Problem: Intramural aortic hematoma, Precordial chest pain, Epigastric abdominal pain Patient Disposition: Being Evaluated by Hospitalist Forms Stand Alone Forms: [facility] Prescriptions Prescriptions: No Action amlodipine [Norvasc] 5 mg tablet 5 mg PO QAM RF: 0 levothyroxine [Synthroid] 88 mcg tablet 88 mcg PO DAILY RF: 0 ascorbic acid (vitamin C) 500 mg Tablet 500 mg PO QPM RF: 0 metoprolol tartrate [Lopressor] 50 mg tablet 50 mg PO BID RF: 0 hydrochlorothiazide [Microzide] 12.5 mg capsule 12.5 mg PO QAM RF: 0 potassium bicarb-citric acid [Klor-Con/EF] 25 mEq tablet, effervescent 25 meq PO DAILY RF: 0 Prevalite 4 gram powder in packet 1 packet PO BID RF: 0 cholecalciferol (vitamin D3) [Vitamin D3] 2,000 unit Tablet 4,000 unit PO DAILY RF: 0 Combivent Respimat 20-100 mcg/actuation mist 1 puff Inhalation QID PRN (Reason: Shortness Of Breath Or Wheezing) RF: 0 cyanocobalamin (vitamin B-12) [Vitamin B-12] 1,000 mcg Tablet Extended Release 1,000 mcg PO DAILY RF: 0 betamethasone, augmented 0.05 % Cream 1 applic TOPICAL BID RF: 0 lorazepam [Ativan] 0.5 mg tablet 0.5 mg PO TID PRN (Reason: anxiety) Qty: 14 RF: 0 Referrals Referrals: Lluvia Ingram, [Primary Care Provider] - The scribe's documentation has been prepared under my direction and personally reviewed by me in its entirety. I confirm that the note above accurately reflects all work, treatment, procedures, and medical decision making performed by me.
--- NOTE | 2019-02-09 21:13 | XRay Report ---
XR chest 1V portable CLINICAL HISTORY: Shortness of breath COMPARISON STUDY: No previous studies for comparison. FINDINGS: There is radiographic evidence of emphysema. There are bilateral postsurgical changes with bilateral suture lines. The heart remains the upper limits of normal in size. There is no failure. Th ere is no focal pulmonary consolidation. There is a stable right infrahilar tubular density, possibly representing a prominent vessel. There are no significant pleural effusions. IMPRESSION: 1. No acute intrathoracic findings 2. Severe emphysema and bilateral postsurgical change Electronically signed by: Erick Rivera M.D. 02/09/2019 9:11 PM
[2019-02-09 21:21] LABS: Basophils # (auto) 0.02 K/uL (0-0.2); Basophils % (auto) 0.4 %; Eosinophils # (auto) 0.14 K/uL (0-0.5); Eosinophils % (auto) 2.5 %; Hematocrit (blood only) 37.8 % (37-47); Hemoglobin 12.7 g/dL (12.0-16.0); Immature Granulocytes # (auto) 0.01 K/uL (0.00-0.02); Immature Granulocytes % (auto) 0.2 %; Lymphocytes # (auto) 0.91 K/uL (1.2-3.4); Mean Corpuscular Hgb Conc 33.6 g/dL (32-36); Mean Corpuscular Volume 92.9 fL (80-100); Mean Platelet Volume 9.2 fL (7.4-10.4); Monocytes # (auto) 0.63 K/uL (0.11-0.59); Monocytes % (auto) 11.1 %; Neutrophils # (auto) 3.97 K/uL (1.4-6.5); Neutrophils % (auto) 69.8 %; Platelet Count 133 K/uL (130-400); RDW Coefficient of Variation 13.5 % (11.5-14.5); RDW Standard Deviation 45.8 fL (36.4-46.3); Red Blood Count 4.07 M/uL (4.2-5.4); White Blood Count 5.68 K/uL (4.8-10.8)
[2019-02-09 21:37] LABS: Albumin Level 3.2 gm/dl (3.4-5.0); Aspartate Aminotransferase 24 U/L (15-37); BUN Creatinine Ratio 22.2 (10-20); Blood Urea Nitrogen 19 mg/dl (7-18); Calcium 8.3 mg/dl (8.5-10.1); Carbon Dioxide 35 mmol/L (21-32); Chloride 99 mmol/L (98-107); Creatinine Clr Calc Pharmacy 34.6 ml/min; Est GFR (African American) 75.1; Est GFR (Non-African American) 64.8; Glucose 105 mg/dl (70-99); Magnesium 1.9 mg/dl (1.8-2.4); Potassium 3.8 mmol/L (3.5-5.1); Sodium 138 mmol/L (136-145)
[2019-02-09 21:42] LABS: Alanine Aminotransferase 28 U/L (12-78); Albumin Globulin Ratio 1.2 (0.9-2); Alkaline Phosphatase 71 U/L (45-117); Bilirubin,Total 0.7 mg/dl (0.2-1); Globulin 2.6 gm/dl (2.5-4.0); Total Protein 5.8 gm/dl (6.4-8.2); Troponin I < 0.015 ng/ml (0-0.045)
[2019-02-09] MEDS ORDERED: OPTIRAY 320 125ml IV PRN (22:02)
--- NOTE | 2019-02-09 22:19 | CT Scan Report ---
CT angio chest wo/w con CT DOSE: 628.59 mGy.cm CLINICAL HISTORY: Atypical chest pain radiating to the abdomen. Possible aortic dissection. TECHNIQUE: Unenhanced images were initially acquired through the chest. CT angiographic images were t hen acquired in a dynamic helical fashion during intravenous administration of 119 cc of Optiray 320. MIP imaging was performed. A dose lowering technique was utilized adhering to the principles of MARTINA Frias COMPARISON STUDY: Noncontrast chest CT dated 12/27/2018 FINDINGS: Noncontrast images reveal increased attenuation surrounding the thoracic aorta consistent with an int ramural hematoma. Postcontrast images reveal no dissection flap. There is a descending thoracic aorti c aneurysm measuring 4 cm. There is no pericardial effusion. The heart is mildly enlarged. There are no pulmonary artery filling defects to indicate acute pulmonary embolism. There are no pathologically enlarged axillary, mediastinal, or hilar lymph nodes. There is pulmonary emphysema. There are bilateral postsurgical changes. There are scattered areas of atelectasis/scarring. There are no new or enlarging pulmonary nodules. There is stable narrowing of t he takeoff of the right middle lobe bronchus. IMPRESSION: 1. Acute intramural hematoma of the aorta involving the aortic arch and descending thoracic aorta. A discrete dissection flap is not visualized 2. 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 Severe emphysema and postsurgical changes of bilateral wedge resections. 4. No enlarging masses 5. No evidence of pathologic adenopathy Electronically signed by: Erick Rivera M.D. 02/09/2019 10:17 PM
[2019-02-09] MEDS ORDERED: HydrALAZINE HCL 20 MG/ML VIAL IV STA (22:22)
--- NOTE | 2019-02-09 22:25 | CT Scan Report ---
CT abd pelvis IV con only CLINICAL HISTORY: Chest and abdominal pain COMPARISON STUDY: CT scan performed August 2009 TECHNIQUE: The patient was scanned in a dynamic helical fashion during intravenous administration of 1 19 cc of Optiray 320. A dose lowering technique was utilized adhering to the principles of ALARA. CT DOSE: FINDINGS: Lower chest: Postsurgical changes are present within the lower lobes. The distal aspect of the interv ertebral thoracic aortic hematoma is visualized. There are no significant pleural effusions Liver: No focal hepatic masses are visualized. There is mild biliary ductal prominence likely seconda ry to a reservoir effect in a patient status post cholecystectomy Gallbladder: Surgically absent Spleen: Normal in size and attenuation. Pancreas: Unremarkable. Adrenal glands: Unremarkable. Kidneys: There are bilateral renal cysts. No solid renal masses are visualized. There is no hydroneph rosis. Bowel: Evaluation of bowel is a limited given the possibility of intra-abdominal fat and the absence of orally administered contrast. There are no transition zone to indicate bowel obstruction. There is evidence for prior colonic surgery with a left abdominal colonic suture line. There is no evidence o f acute diverticulitis. The appendix is not visualized with certainty. Peritoneum: There is a possible loculated extraluminal fluid collection within the left upper quadran t measuring 42 mm. This is best visualized image #[id number]. Vasculature: There are moderately extensive atheromatous changes within the aorta and mesenteric vess els and iliac vessels. Adenopathy: None. Pelvic viscera: The uterus appears surgically absent. Skeletal structures: No destructive osseous lesions are seen. IMPRESSION: 1. Difficult study to interpret given the paucity of intra-abdominal fat and the lack of orally admin istered contrast 2. Possible extraluminal loculated left lower quadrant fluid collection measuring 42 mm. 3. No evidence of bowel obstruction. No evidence of free air 4. Mild intra and extrahepatic biliary ductal dilatation, possibly secondary to a reservoir effect in a patient status post cholecystectomy 5. Extensive atheromatous change within the aorta iliac and mesenteric vessels Electronically signed by: Erick Rivera M.D. 02/09/2019 10:24 PM
[2019-02-09] MEDS ORDERED: METOPROLOL TARTRATE 25 MG TAB PO SCH (23:30)
--- NOTE | 2019-02-10 00:07 | History & Physical Report ---
Date of Service February 10, 2019 Assessment & Plan (1) Intramural aortic hematoma: hx TAA COPD, past tobacco abuse, lung status at baseline hx right NSCLC status post surgery hypertension, stable hypothyroidism, recent outpatient TSH from 2 weeks ago was elevated at 12.41 colon cancer status post surgery Medical telemetry Continue home beta-guru Rx Recheck TFTs, home levothyroxine dose may need titration DVT prophylaxis. SCDs RE aortic hematoma DNR Patient and family aware of possible mortality resulting from intramural aortic hematoma. Patient son requesting updates from providers. Mr. Alexander Florentino, contact #[phone]. History of Present Illness Chief Complaint: Chest/Abdominal pain Primary Care Provider: Lluvia Ingram, History obtained from patient, family, and records. Medical history significant for COPD, past tobacco abuse, hx TAA, right NSCLC status post surgery, hypertension, hypothyroidism, colon cancer status post surgery, anxiety disorder. Recent confinement March [address] surgery service for non-small cell lung CA, RLL sp thorascopic wedge resection. Preop CT from December 2017 showed mild dila tation of ascending thoracic aorta measuring 4 cm. Last night around dinnertime, patient experience achy chest, abdominal pain going to the back as if something exploded within her associated with shortness of breath symptoms. No unusual cough symptoms. No arm, leg weakness. CT angiogram showed: 1. Acute intramural hematoma of the aorta involving the aortic arch and descending thoracic aorta. A discrete dissection flap is not visualized 2. 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 Severe emphysema and postsurgical changes of bilateral wedge resections. 4. No enlarging masses 5. No evidence of pathologic adenopathy [facility] CT surgeon risk control representative (Dr. Bruner) recommended medical management as per discussion with the ER provider. Medical History as above Surgical History : Ex lap, abdominal abscess drainage, eye surgery, colectomy, thyroidectomy, cholecystectomy, lung lobectomy, hysterectomy Family History :Breast cancer, heart disease, stroke Personal/Social history : Past tobacco abuse, no EtOH intake, retired RN Allergies Allergy/AdvReac Type Severity Reaction Status Date / Time Penicillins Allergy Intermediate RASH; HAS Verified 02/10/19 00:07 TOLERATED MEFOXIN NEGAR Inhibitors AdvReac Intermediate SEVERE Verified 02/10/19 00:07 COUGH Home Medications Home Medications Medication Instructions Recorded Confirmed Type amlodipine [Norvasc] 5 mg PO QAM 04/23/18 02/09/19 History ascorbic acid (vitamin C) 500 mg PO QPM 04/23/18 02/09/19 History cholecalciferol (vitamin D3) 4,000 unit PO DAILY 04/23/18 02/09/19 History [Vitamin D3] cholestyramine-aspartame 1 packet PO BID 04/23/18 02/10/19 History [Prevalite] hydrochlorothiazide [Microzide] 12.5 mg PO QAM 04/23/18 02/10/19 History ipratropium-albuterol [Combivent 1 puff INHALATION QID PRN 04/23/18 02/10/19 History Respimat] levothyroxine [Synthroid] 88 mcg PO DAILY 04/23/18 02/09/19 History metoprolol tartrate [Lopressor] 50 mg PO BID 04/23/18 02/10/19 History cyanocobalamin (vitamin B-12) 1,000 mcg PO DAILY 06/13/18 02/09/19 History [Vitamin B-12] clotrimazole 10 mg PO UD 02/09/19 02/09/19 History folic acid 1 mg PO DAILY 02/09/19 02/09/19 History potassium bicarb-citric acid 25 meq PO BID 02/09/19 02/09/19 History [Klor-Con/EF] ipratropium-albuterol 3 ml INHALATION QID 02/10/19 02/10/19 History lorazepam [Ativan] 0.5 mg PO BID PRN 02/10/19 02/10/19 History Past Med/Surg History Medical History Hypertension (Chronic) Tobacco use disorder (Chronic) Osteoporosis (Chronic) Venous insufficiency (Chronic) Hypothyroidism (Chronic) Macular degeneration (senile) of retina, unspecified (Chronic) BOB (iron deficiency anemia) (Chronic) History of Clostridium difficile infection (Chronic) COPD exacerbation (Acute) COPD (chronic obstructive pulmonary disease) (Chronic) Surgical History H/O partial resection of colon S/P cholecystectomy S/P hysterectomy S/P thyroidectomy Family History Other Family history non-contributory Social History Preferred Language: Citizen Of [place] Communication Ability: Effective Survey Methodologist Required: No Beliefs That Will Affect Care: None marital status: / Current Living Situation: Family Current Living Situation Comment: son Other Information That Helps Us Care for You: No Feels Safe at Home: Yes Safety Concerns: Feels Safe At This Time Smoking Status: Former smoker Cigarettes Per Day: 20 Hx Alcohol Use: Yes Hx Substance Use: No Review of Systems Review of Systems: As per HPI, all 10 systems reviewed, all other ROS negative Physical Exam Physical Exam: GENERAL: Slightly uncomfortable, slightly anxious, no respiratory distress, underweight SKIN: Normal color, warm HEENT: Bespectacled, pink palpebral conjunctivae, no ptosis, dry buccal mucosa NECK : Supple, no tenderness CHEST : Decreased breath sounds, no tenderness HEART : RRR, diastolic murmur ABDOMEN: Soft, nontender EXTREMITIES : No LE swelling/tenderness, no other conspicuous deformities noted NEUROLOGIC : Coherent, no facial asymmetry, no other gross focality Results & Data Vital Signs (Past 12 Hours) Vital Signs Temp Pulse Resp BP Pulse Ox 02/09/19 23:45 87 23 118/63 96 02/09/19 23:30 90 23 117/64 95 02/09/19 23:05 101 H 22 139/90 94 02/09/19 23:00 100 H 28 H 110/72 95 02/09/19 22:55 94 H 29 H 132/72 94 02/09/19 22:51 93 H 30 H 140/75 95 02/09/19 22:45 90 20 120/76 96 02/09/19 22:40 90 20 135/66 96 02/09/19 22:35 85 20 130/73 96 02/09/19 22:30 79 20 155/80 H 97 02/09/19 22:29 78 19 150/83 H 96 02/09/19 22:26 73 18 151/80 H 97 02/09/19 22:10 73 18 163/83 H 96 02/09/19 21:30 71 23 162/76 H 98 02/09/19 21:00 69 24 170/86 H 98 02/09/19 20:15 36.8 C 69 24 165/78 H 95 Laboratory Results Laboratory Results WBC 5.68 K/uL (4.8-10.8) 02/09/19 21:10 RBC 4.07 M/uL (4.2-5.4) L 02/09/19 21:10 Hgb 12.7 g/dL (12.0-16.0) 02/09/19 21:10 Hct 37.8 % (37-47) 02/09/19 21:10 MCV 92.9 fL (80-100) 02/09/19 21:10 MCH 31.2 pg (25-34) 02/09/19 21:10 MCHC 33.6 g/dL (32-36) 02/09/19 21:10 RDW Std Deviation 45.8 fL (36.4-46.3) 02/09/19 21:10 RDW Coeff of Lyle 13.5 % (11.5-14.5) 02/09/19 21:10 Plt Count 133 K/uL (130-400) 02/09/19 21:10 MPV 9.2 fL (7.4-10.4) 02/09/19 21:10 Immature Gran % (Auto) 0.2 % 02/09/19 21:10 Neut % (Auto) 69.8 % 02/09/19 21:10 Lymph % (Auto) 16.0 % 02/09/19 21:10 Larue % (Auto) 11.1 % 02/09/19 21:10 Eos % (Auto) 2.5 % 02/09/19 21:10 Baso % (Auto) 0.4 % 02/09/19 21:10 Immature Gran # (Auto) 0.01 K/uL (0.00-0.02) 02/09/19 21:10 Neut # (Auto) 3.97 K/uL (1.4-6.5) 02/09/19 21:10 Lymph # (Auto) 0.91 K/uL (1.2-3.4) L 02/09/19 21:10 Larue # (Auto) 0.63 K/uL (0.11-0.59) H 02/09/19 21:10 Eos # (Auto) 0.14 K/uL (0-0.5) 02/09/19 21:10 Baso # (Auto) 0.02 K/uL (0-0.2) 02/09/19 21:10 Sodium 138 mmol/L (136-145) 02/09/19 21:10 Potassium 3.8 mmol/L (3.5-5.1) 02/09/19 21:10 Chloride 99 mmol/L (98-107) 02/09/19 21:10 Carbon Dioxide 35 mmol/L (21-32) H 02/09/19 21:10 Anion Gap 4.0 (3-11) 02/09/19 21:10 BUN 19 mg/dl (7-18) H 02/09/19 21:10 Creatinine 0.83 mg/dl (0.6-1.2) 02/09/19 21:10 Est Cr Clr Drug Dosing 34.6 ml/min 02/09/19 21:10 Est GFR ( Amer) 75.1 02/09/19 21:10 Est GFR (Non-Af Amer) 64.8 02/09/19 21:10 BUN/Creatinine Ratio 22.2 (10-20) H 02/09/19 21:10 Glucose 105 mg/dl (70-99) H 02/09/19 21:10 Calcium 8.3 mg/dl (8.5-10.1) L 02/09/19 21:10 Magnesium 1.9 mg/dl (1.8-2.4) 02/09/19 21:10 Total Bilirubin 0.7 mg/dl (0.2-1) 02/09/19 21:10 AST 24 U/L (15-37) 02/09/19 21:10 ALT 28 U/L (12-78) 02/09/19 21:10 Alkaline Phosphatase 71 U/L (45-117) 02/09/19 21:10 Troponin I < 0.015 ng/ml (0-0.045) 02/09/19 21:10 Total Protein 5.8 gm/dl (6.4-8.2) L 02/09/19 21:10 Albumin 3.2 gm/dl (3.4-5.0) L 02/09/19 21:10 Globulin 2.6 gm/dl (2.5-4.0) 02/09/19 21:10 Albumin/Globulin Ratio 1.2 (0.9-2) 02/09/19 21:10 Lipase 53 U/L (73-393) L 02/09/19 21:[address] chest: 1. Acute intramural hematoma of the aorta involving the aortic arch and descending thoracic aorta. A discrete dissection flap is not visualized 2. 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 Severe emphysema and postsurgical changes of bilateral wedge resections. 4. No enlarging masses 5. No evidence of pathologic adenopathy CT abdomen pelvis: 1. Difficult study to interpret given the paucity of intra-abdominal fat and the lack of orally administered contrast 2. Possible extraluminal loculated left lower quadrant fluid collection measuring 42 mm. 3. No evidence of bowel obstruction. No evidence of free air 4. Mild intra and extrahepatic biliary ductal dilatation, possibly secondary to a reservoir effect in a patient status post cholecystectomy 5. Extensive atheromatous change within the aorta iliac and mesenteric vessels EKG as per my interpretation: Rate 70, NSR, T wave inversion septal leads, septal infarct
[2019-02-10] MEDS ORDERED: ACETAMINOPHEN 325 MG TAB PO PRN (01:38)
[2019-02-10] MEDS ORDERED: TRAMADOL HCL 50 MG TABLET PO PRN (01:38)
[2019-02-10] MEDS ORDERED: NITROGLYCERIN SL 0.4 MG/TAB TAB SL PRN (01:38)
[2019-02-10] MEDS ORDERED: XOPENEX/ATROVENT 1.25mg/0.5MG NEB COMBO NEB SCH (02:00)
[2019-02-10] MEDS ORDERED: NSS + 20MEQ KCL 20 MEQ/1,000 ML BAG IV ONE (02:00)
[2019-02-10] MEDS: IPRATROPIUM BROMIDE NEB SOLN 0.02% 2.5 ML VIAL INH SCH ×2 (02:13→07:27)
[2019-02-10] MEDS: LEVALBUTEROL 1.25MG/0.5ML NEB INH SCH ×2 (02:14→07:27)
[2019-02-10] MEDS: LEVOTHYROXINE SODIUM 88 MCG TABLET PO SCH (06:01)
[2019-02-10 08:12] LABS: Basophils # (auto) 0.02 K/uL (0-0.2); Basophils % (auto) 0.3 %; Eosinophils # (auto) 0.05 K/uL (0-0.5); Eosinophils % (auto) 0.7 %; Hemoglobin 12.9 g/dL (12.0-16.0); Immature Granulocytes # (auto) 0.01 K/uL (0.00-0.02); Immature Granulocytes % (auto) 0.1 %; Lymphocytes # (auto) 0.72 K/uL (1.2-3.4); Lymphocytes % (auto) 9.9 %; Mean Corpuscular Hgb Conc 33.1 g/dL (32-36); Mean Corpuscular Volume 92.6 fL (80-100); Mean Platelet Volume 9.4 fL (7.4-10.4); Monocytes % (auto) 9.7 %; Neutrophils # (auto) 5.74 K/uL (1.4-6.5); Neutrophils % (auto) 79.3 %; Platelet Count 142 K/uL (130-400); RDW Coefficient of Variation 13.6 % (11.5-14.5); RDW Standard Deviation 46.1 fL (36.4-46.3); Red Blood Count 4.21 M/uL (4.2-5.4); White Blood Count 7.24 K/uL (4.8-10.8)
[2019-02-10] MEDS ORDERED: BENZONATATE 100 MG CAPSULE PO PRN (08:18)
[2019-02-10] MEDS ORDERED: LABETALOL HCL IV 5 MG/ML 20ML IV STA (08:18)
[2019-02-10] MEDS: PROMETHAZINE HCL 12.5 MG in SODIUM CHLORIDE 0.9% 50 ML IV PRN ×2 (08:24→20:58)
[2019-02-10] MEDS ORDERED: METOPROLOL TARTRATE 50 MG TAB PO SCH (09:00)
--- NOTE | 2019-02-10 09:04 | Hospitalist Progress Note ---
Date of Service February 10, 2019 Assessment & Plan (1) Aortic aneurysm and dissection: (2) Intramural aortic hematoma: Emergency room physician discussed case with CT surgeon and Aj Zimmerman, surgical intervention not indicated at this time due to patient's age, comorbidities Medical management recommended Patient's blood pressure today 158/90, heart rate in the 90s Reports mild chest tightness but not actual chest pain Usually on metoprolol tartrate 50 mg twice a day and amlodipine 5 mg daily, HCTZ 12.5 mg daily at home will give stat dose of labetalol 20 mg IV and reevaluate blood pressure after an hour, goal is to maintain good blood pressure and heart rate control We will consult cardiology service for further recommendations regarding medical management Also consult cardiothoracic surgery Dr. Bell whom the patient follows for history of lung resection Pain controlled with PRN morphine and tramadol Chronic respiratory failure, history of COPD Not in exacerbation We will hold off nebulizer treatments to avoid hypotension and tachycardia Anxiety On PRN lorazepam Consult behavioral unit as anxiety and stress contributing to hypertension, tachycardia History of lung cancer, status post right lung resection, history of pneumothorax Follows with Dr. Bell DVT prophylaxis SCDs in light of intramural hematoma next line Disposition PT and OT evaluation, possible transition to detention facility Discussed case in detail and at length with patient and her son at the bedside Explained mortality risk aortic aneurysm with dissection hematoma Confirmed with the patient and her son who is her POA, that the patient is a DNR All questions answered Subjective Follow-up for aortic dissection, aneurysm Seen sitting up in bed, comfortable, not in distress Conversant, pleasant, oriented x3 Reports mild chest tightness, denies actual chest pain Also has nausea but no abdominal pain Denies dizziness, shortness of breath, palpitations No other symptoms Review of Systems Review of Systems: All systems reviewed & are unremarkable except as noted in HPI & below Physical Exam Physical Exam: General- oriented x 3, not in distress, speaks in sentences with no effort or accessory muscle use Eyes- anicteric Neck- no JVD Lungs- clear breath sounds bilaterally, no rales/wheezes Heart- normal rate, regular rhythm; no murmurs Abdomen- normal bowel sounds, nondistended, soft, nontender Extremities- no pretibial edema, no calf tenderness Neuro- alert, oriented x 3; no gross focal neurologic deficits Skin- warm & dry Results & Data Vital Signs (Past 12 Hours) Vital Signs Temp Pulse Pulse Resp BP BP BP 02/10/19 07:37 36.8 C 91 H 16 160/79 H 02/10/19 02:15 96 H 02/10/19 01:53 36.7 C 89 20 151/77 H 02/10/19 00:30 85 23 122/68 02/10/19 00:15 85 22 127/70 02/10/19 00:00 90 19 136/76 02/09/19 23:45 87 23 118/63 02/09/19 23:30 90 23 117/64 02/09/19 23:05 101 H 22 139/90 02/09/19 23:00 100 H 28 H 110/72 02/09/19 22:55 94 H 29 H 132/72 02/09/19 22:51 93 H 30 H 140/75 02/09/19 22:45 90 20 120/76 02/09/19 22:40 90 20 135/66 02/09/19 22:35 85 20 130/73 02/09/19 22:30 79 20 155/80 H 02/09/19 22:29 78 19 150/83 H 02/09/19 22:26 73 18 151/80 H 02/09/19 22:10 73 18 163/83 H 02/09/19 21:30 71 23 162/76 H 02/09/19 21:00 69 24 170/86 H Pulse Ox 02/10/19 07:37 94 02/10/19 02:15 02/10/19 01:53 96 02/10/19 00:30 96 02/10/19 00:15 95 02/10/19 00:00 94 02/09/19 23:45 96 02/09/19 23:30 95 02/09/19 23:05 94 02/09/19 23:00 95 02/09/19 22:55 94 02/09/19 22:51 95 02/09/19 22:45 96 02/09/19 22:40 96 02/09/19 22:35 96 02/09/19 22:30 97 02/09/19 22:29 96 02/09/19 22:26 97 02/09/19 22:10 96 02/09/19 21:30 98 02/09/19 21:00 98 Laboratory Results all noted and reviewed
[2019-02-10 09:22] LABS: Basophils # (auto) 0.02 K/uL (0-0.2); Basophils % (auto) 0.3 %; Eosinophils # (auto) 0.04 K/uL (0-0.5); Eosinophils % (auto) 0.6 %; Hematocrit (blood only) 37.8 % (37-47); Hemoglobin 12.7 g/dL (12.0-16.0); Immature Granulocytes # (auto) 0.01 K/uL (0.00-0.02); Immature Granulocytes % (auto) 0.2 %; Lymphocytes # (auto) 0.63 K/uL (1.2-3.4); Lymphocytes % (auto) 9.8 %; Mean Corpuscular Hgb Conc 33.6 g/dL (32-36); Mean Corpuscular Volume 91.1 fL (80-100); Mean Platelet Volume 9.4 fL (7.4-10.4); Monocytes # (auto) 0.56 K/uL (0.11-0.59); Monocytes % (auto) 8.7 %; Neutrophils # (auto) 5.18 K/uL (1.4-6.5); Neutrophils % (auto) 80.4 %; Platelet Count 128 K/uL (130-400); RDW Coefficient of Variation 13.6 % (11.5-14.5); RDW Standard Deviation 45.1 fL (36.4-46.3); Red Blood Count 4.15 M/uL (4.2-5.4); White Blood Count 6.44 K/uL (4.8-10.8)
[2019-02-10] MEDS: CYANOCOBALAMIN 500 MCG TABLET (VITAMIN B-12) PO SCH (09:36)
[2019-02-10] MEDS: AMLODIPINE BESYLATE 5 MG TAB PO SCH (09:36)
[2019-02-10] MEDS: FOLIC ACID 1 MG TAB PO SCH (09:36)
[2019-02-10 09:57] LABS: BUN Creatinine Ratio 25.8 (10-20); Calcium 8.3 mg/dl (8.5-10.1); Creatinine Clr Calc Pharmacy 45.9 ml/min; Est GFR (Non-African American) 82.8; Potassium 3.7 mmol/L (3.5-5.1)
[2019-02-10] MEDS: NYSTATIN SUSP 500,000 U/5 ML UDC PO SCH ×4 (10:34→20:40)
[2019-02-10] MEDS: METOPROLOL TARTRATE 50 MG TAB PO SCH ×3 (13:11→23:39)
--- NOTE | 2019-02-10 15:15 | Consultation Report ---
DATE OF CONSULTATION: 02/10/2019 INPATIENT CARDIOLOGY CONSULTATION CONSULTATION REQUESTED BY: Dr. Haynes. REASON FOR CONSULTATION: Intramural aortic hematoma. HISTORY OF PRESENT ILLNESS: Mrs. Florentino is a very pleasant 83-year-old woman who presented to [facility] late in the evening of 02/09/2019 with complaints of abdominal discomfort. The patient states that she was having issues with her abdomen all day, feeling as though she was constipated; however, after dinner, she went to the bathroom and started developing chest discomfort. She describes a dull achy sensation in the center of her chest that radiated straight through to her back. She became a little short of breath with this, at that time asked her son to call the ambulance. She presented to [facility] Emergency Department and a CTA of the chest was performed which found an acute intramural hematoma of the aorta involving the aortic arch and descending aorta without discrete flap being visualized. Case was discussed with cardiothoracic surgery in [place] and the patient was turned down for surgery and medical management was recommended. The patient was admitted to telemetry. Currently, she states that she is feeling better. The chest discomfort seems to have resolved as has her shortness of breath. Unfortunately, she is still having issues with her abdomen with some ongoing nausea. PAST SURGICAL HISTORY: 1. Recent wedge lung resection. 2. Multiple colonoscopies. 3. Exploratory laparotomy with abdominal abscess drainage. 4. Laparoscopic partial cholecystectomy, secondary to colon cancer. 5. Cataract surgery. 6. Total hysterectomy. 7. Cholecystectomy. MEDICAL ILLNESSES: 1. COPD with chronic tobacco use. 2. Nonsmall cell lung carcinoma, status post wedge resection. 3. Hypertension. 4. Hypothyroidism. 5. Colon cancer. FAMILY HISTORY: Noncontributory given her age. SOCIAL HISTORY: The patient is a former smoker, quit in 2018. Drinks rare alcohol. Denies any recreational drug use. ALLERGIES: NEGAR INHIBITORS AND PENICILLIN. REVIEW OF SYSTEMS: As per HPI, all other review of systems reviewed and negative at this time. MEDICATIONS AN OUTPATIENT: 1. Hydrochlorothiazide 12.5 mg daily. 2. Amlodipine 5 mg daily. 3. Metoprolol tartrate 50 mg b.i.d. 4. Levoxyl. 5. Folic acid. 6. Lorazepam. PHYSICAL EXAMINATION: VITALS: Temperature 36.9, pulse 83, respiratory rate 12, blood pressure 165/83. GENERAL: Awake, alert, oriented x3 in no acute distress. HEENT: Normocephalic, atraumatic. Pupils equal, round, reactive to light and accommodation. Extraocular muscles intact. Anicteric sclerae. Moist mucous membranes. NECK: No JVD, no bruit. CARDIOVASCULAR: Regular. Positive S4. Normal S1 and S2. No S3. A 3/6 mid to late systolic ejection murmur greatest at the right sternal border second intercostal space with radiation to bilateral carotids. No rubs. PULMONARY: Poor air movement diffusely, but clear. No rales, rhonchi, or wheezing. ABDOMEN: Bowel sounds x4, soft. No rebound, guarding, tenderness. No organomegaly. EXTREMITIES: No clubbing, cyanosis or edema. +2 pedal pulses bilaterally. SKIN: Warm and dry. TEST RESULTS: CTA of the chest as above. IMPRESSION: 1. Acute intramural aortic hematoma without clearly delineated flap. 2. Nonsmall lung cell carcinoma status post wedge resection. 3. Chronic obstructive pulmonary disease with history of chronic tobacco use. 4. Colon cancer, status post resection. 5. Hypertension. RECOMMENDATIONS: It was my pleasure to see Mrs. Florentino in consultation today. From a cardiac standpoint, in order to treat her intramural aortic hematoma, strict blood pressure control is required, so to that end, I will increase her metoprolol 50 mg q. 6 hours and she will be maintained on her outpatient doses of amlodipine, which could be up titrated as well as necessary. The patient was counseled. Unfortunately, there is a high risk of acute dissection, which is a potentially fatal and she states that she understands and agrees that she does not want surgical intervention in a situation and Dr. Jacobo was discussed similar with the family and they are all in agreement.
--- NOTE | 2019-02-10 20:42 | Consultation Report ---
DATE OF CONSULTATION: 02/10/2019 REASON FOR CONSULTATION: Intramural hematoma, aortic arch. 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 She smoked her entire adult life. In September of 2017, I met her, where she had a spontaneous left pneumothorax. I performed a thoracoscopy with a wedge resection and pleurodesis and she did very well with that; however, at that time, in the CT scan, we saw mass in her right lower lobe. Six months later, we repeated the CT scan, and this had grown. On 03/26/2018, I did a thoracoscopic wedge resection for what turned out to be an adenocarcinoma. This is suboptimal resection; however, lungs would not allow her to have a lobectomy. Her lymph nodes were negative for carcinoma. She settled down and I saw her on 01/24/2019 in the office for followup for her lung cancer. A CT scan performed a month before showed no evidence of disease. She had some mild aneurysmal dilatation of her ascending aorta. I asked to see her back in 6 months. In the meantime, patient suffered a tear to her lower left leg and been followed at the wound center and this almost completely resurfaced. I think it looks quite good actually. The patient was admitted last night with abdominal pain. The patient's chest has been aching last night and she had some epigastric pain with shortness of breath. A CT angiogram was performed and quite frankly is concerning. There was an intramural hematoma involving the arch and proximal descending thoracic aorta. We do not see a flap per se to suggest a dissection. She has no evidence of any recurrent lung cancer or lung parenchyma. I was asked to comment on this from a thoracic surgery standpoint. PAST MEDICAL HISTORY: 1. Nonsmall cell lung carcinoma, right lower lobe. 2. Spontaneous left pneumothorax. 3. Long history of cigarette smoking. 4. Hypertension. 5. Osteoporosis. 6. Hypercholesterolemia. 7. Severe chronic obstructive pulmonary disease. 8. Hypothyroidism. PAST SURGICAL HISTORY: 1. 2, para 2. 2. Left thoracoscopy with apical bleb resection pleurodesis. 3. Right thoracoscopy with wedge resection, right lower lobe nonsmall cell lung carcinoma. SOCIAL HISTORY: The patient is a retired nurse. She has lived by herself for many years but now lives with her son. She moved to [place] this past year for several months with her daughter, but "that he had almost killed me" and she moved back with her son. FAMILY MEDICAL HISTORY: The patient's mother at 93 from natural causes. Father from 75 of myocardial infarction. She has a son and a daughter, several grandchildren and great grandchildren that are healthy. MEDICATIONS: 1. Amlodipine. 2. Ativan. 3. Vitamin C. 4. Multiple inhalers. 5. Potassium supplements. 6. Prevalite. 7. Vitamin D3. 8. Combivent inhalers. 9. B12 complex. 10. Lopressor. 11. Synthroid. 12. Clotrimazole. 13. Folic acid. ALLERGIES: NEGAR INHIBITOR EXACERBATES HER COUGH AND PENICILLIN CAUSES A RASH. REVIEW OF SYSTEMS: The patient is a very frail tiny woman whose weight has been an issue. She has been unable to gain weight. She currently weighs about 95 pounds and weighed 97 pounds in September of 2017. She is 5 feet 3 inches tall. She has had some abdominal pain which is radiating up to her chest. She has had a skin tear of the left leg, which is almost completely resurfaced. She does get some mild swelling of her legs on occasion. She denies palpitations, but does have chest pain as described. She also gets very short of breath with any type of exertion. She does have oxygen at home and wears at night and if she exerts herself. Her eyesight is fairly poor, but she does wear glasses. She has had no change in her hearing. She denies any neurologic events such as amaurosis fugax, transient ischemic attack. PHYSICAL EXAMINATION: GENERAL: A 5 feet 3 inch, 95 pound frail female who wears glasses. HEENT: Extraocular movements are intact. She is emaciated. She has a temporal wasting. Her oral mucosa is a bit dry. Her tongue is midline. NECK: Thin but supple. She has mild prominence of her veins that she does not normally have. She has no carotid bruits. CHEST: She has a regular rate and rhythm of her heart. She has decreased breath sounds throughout. She has well-healed thoracoscopy incisions bilaterally. ABDOMEN: Fairly soft. She does have bowel sounds. She has mild epigastric tenderness. EXTREMITIES: She has trace edema of her lower extremities, well-healed anterior lower leg wound. She has no joint effusions. NEUROLOGIC: She is awake, alert and oriented. ASSESSMENT AND PLAN: Acute mural hematoma, aortic arch and proximal descending aorta. I had a long talk with Leticia Florentino. I know Leticia and her family well. 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 She understands the implications of this designation. By the same token, I told her that even if she were good risk, we would not operate her at this point, but just watch her closely. I do not think Leticia Florentino would tolerate any type of surgical approaches. She certainly could not tolerate a sternotomy and cold circulatory arrest needed to replace her aortic arch. At this point, I would keep her blood pressure controlled and keep her pain under control. I have explained to Leticia that there is a chance that this could progress rather acutely resulting in her demise. The patient is not only understanding of this, but also accepting of it. We will continue to follow her and keep her blood pressure well controlled. [email or web address]
[2019-02-10] MEDS: MoRPHine SULFATE 2 MG/ML CARP IV PRN (22:41)
[2019-02-11] MEDS: METOPROLOL TARTRATE 50 MG TAB PO SCH ×2 (05:36→23:29)
[2019-02-11] MEDS: LEVOTHYROXINE SODIUM 88 MCG TABLET PO SCH (05:37)
[2019-02-11] MEDS: MoRPHine SULFATE 2 MG/ML CARP IV PRN ×2 (08:19→23:35)
[2019-02-11] MEDS ORDERED: AMLODIPINE BESYLATE 5 MG TAB PO ONE ×2 (08:24→17:09)
[2019-02-11] MEDS: FOLIC ACID 1 MG TAB PO SCH (09:18)
[2019-02-11] MEDS: CYANOCOBALAMIN 500 MCG TABLET (VITAMIN B-12) PO SCH (09:18)
[2019-02-11] MEDS: NYSTATIN SUSP 500,000 U/5 ML UDC PO SCH (09:18)
[2019-02-11] MEDS: AMLODIPINE BESYLATE 5 MG TAB PO SCH (09:18)
--- NOTE | 2019-02-11 09:21 | Hospitalist Progress Note ---
Date of Service February 11, 2019 Assessment & Plan (1) Aortic aneurysm and dissection: (1) Aortic aneurysm and dissection: (2) Intramural aortic hematoma: Emergency room physician discussed case with CT surgeon and Aj Zimmerman, surgical intervention not indicated at this time due to patient's age, comorbidities Medical management recommended Patient this morning, after detailed and lengthy discussion, has requested to be transition to comfort measures status only Upon reevaluation this afternoon around 5:30 PM, the patient requested comfort measures to be first and resume full medical management Will resume metoprolol 10 mg every 6 hours and amlodipine 5 mg p.o. daily per cardiology recommendation to control blood pressure and heart rate in the setting of aortic aneurysm and dissection with intra-mural aortic hematoma Continue PRN morphine and analgesics Patient still maintains DNR/DNI status I asked the patient if I can update his son regarding her decision tonight, she says she will call him an update him Abdominal pain Unclear etiology at this time She declined imaging Discussed the case with , possibility of mesenteric ischemia contributing Upon reevaluation this evening patient reports abdominal pain has resolved Continue to monitor Chronic respiratory failure, history of COPD Not in exacerbation We will hold off nebulizer treatments to avoid hypotension and tachycardia Anxiety On PRN lorazepam History of lung cancer, status post right lung resection, history of pneumothorax Follows with Dr. Bell DVT prophylaxis SCDs in light of intramural hematoma Disposition Pending at this time Discussed case in detail and at length with patient and her son at the bedside Continue telemetry monitoring at this time In terms of blood work and further imaging, the patient would like to defer it at this time, she would like to be reevaluated in the morning Subjective Follow-up for aortic hematoma, aortic aneurysm Notified by RN that patient refuses to take her blood pressure medications and wishes to be made comfortable only seen resting in bed, uncomfortable secondary to pain reports abdominal pain, pressure, severe Denies chest pain, shortness of breath, dizziness, palpitations, headache Patient repeatedly expressed requesting that she be made comfortable only She she says she does not want to take her medications anymore, "" I have had it" "i just want to be comfortable" Discussed with patient and her son regarding transitioning to comfort measures status only, and they are both agreeable understanding of the plan Discussed consultation with palliative care service and they are both agreeable also At around 5 PM the patient's RN message me regarding patient's request to resume her metoprolol and amlodipine, elevated blood pressure Patient seen at the bedside, reading newspaper, comfortable Patient reiterates that she would now want to resume her amlodipine and metoprolol, continue vital signs and cardiac monitoring She would like to reduce to comfort measures status this evening Discussed the need for her to be transferred back to telemetry monitored unit and she agrees with the plan Patient further states that she would like to see how it goes day by day Reports that her abdominal pain has resolved, denies nausea or vomiting, fevers or chills, diarrhea, urinary hematochezia Denies active chest pain, palpitations, dizziness, nausea No other symptoms Review of Systems Review of Systems: All systems reviewed & are unremarkable except as noted in HPI & below Physical Exam Physical Exam: General- oriented x 3, not in distress, speaks in sentences with no effort or accessory muscle use Eyes- anicteric Neck- no JVD Lungs- clear breath sounds bilaterally, no crackles, no wheezing Heart- normal rate, regular rhythm; no murmurs Abdomen- normal bowel sounds, nondistended, soft, nontender Extremities- no pretibial edema, no calf tenderness Neuro- alert, oriented x 3; no gross focal neurologic deficits Skin- warm & dry Results & Data Vital Signs (Past 12 Hours) Vital Signs Temp Pulse Pulse Resp BP Pulse Ox 02/11/19 07:12 36.9 C 79 16 186/97 H 92 02/11/19 04:26 37.0 C 87 20 165/92 H 94 02/11/19 00:14 86 02/11/19 00:00 36.4 C L 91 H 18 151/85 H 92
--- NOTE | 2019-02-11 11:05 | Palliative Care Consultation ---
Date of Consultation February 11, 2019 Assessment & Plan (1) Comfort measures only status: -83 year old female patient with PMH COPD, long-time tobacco use, osteoporosis, htn, macular degeneration, non-small cell lung cancer, thoracic aortic aneurysm, colon cancer s/p surgery, and anxiety, presented to the hospital yesterday with acute onset abdominal pain. CT angiogram of abdomen showed intramural hematoma of aorta involving the arch and descending thoracic aorta, severe emphysema and BL wedge resection changes, and a 4cm aneurysm of the ascending aorta. Surgery was consulted who recommended conservative measures. Today, patient began having severe abdominal pain which worsens with any intake, even sips of liquids. It's thought to possibly be from mesenteric ischemia 2/2 reduced blood flow from hematoma. The patient, however, decided not to persue any further workup to treatment and is requesting to be transitioned to comfort measures only. Her family is supportive of her decision. Palliative care is consulted. -Met with patient and her [id number] in room 276. Patient is getting ready to be transferred to room 401. Patient is AA&O x4. She c/o mild pain in her lower abdomen at this time as she just received a dose of IV morphine 2 hours prior. 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 Her goal at this point is strictly for pain relief. -Will increase her morphine dose to 2mg IV Q1h PRN pain scale 1-5 or SOB, and 4mg IV Q2h PRN pain scale 6-10 or SOB. -Duonebs Q6h PRN SOB/wheezing. -Lorazepam 0.5mg IV Q4h PRN anxiety already ordered. Phenergan PRN nausea ordered as well. -If frequent PRN doses of morphine are needed, can consider a continuous morphine infusion. -Patient does not want to return to her son's home on hospice as she doesn't want to be a "burden." Patient's son told Dr. Jacobo he would not be able to provide the 24-hour care either. Uncertain of discharge plan at this time, but will see how patient does through the weekend. (2) Epigastric abdominal pain: (3) Aortic aneurysm and dissection: (4) Intramural aortic hematoma: Supervising Physician Co-Signing Physician Notes Chart reviewed, patient seen and examined. Son arrived during my visit. Patient is awake alert, no acute distress, patient did receive 2 PRN doses of IV morphine in the past 12 hours. Last dose was at 0819. Patient reports morphine is effective. PE: No acute distress HEENT: EOMI, hearing within normal limits Respiratory: Unlabored, increased cough with prolonged conversation, wheezy breath sounds with cough CV: Regular rate, no edema Abdomen: Not distended Extremities: Full range of motion Neuro: Alert and oriented x4 Psych: Appropriate mood and affect Patient did start coughing after prolonged conversation-did have some wheezy breath sounds on exam-we will add PRN duo nebs. Discussed with patient and family the ability to use mouth swabs for comfort without the need to swallow. Patient reports abdominal pain with any p.o. intake including fluids. Agree with above note, assessment and plan as per JUAN PABLO Amaro-will continue to follow and assist patient with medical decision making. History of Present Illness Reason for Consultation: Comfort measures only Requesting Physician: Dr. Jacobo Attending Physician: Miguel Jacobo MD History of Present Illness This 83 year old female patient with PMH COPD, long-time tobacco use, osteoporosis, htn, macular degeneration, non-small cell lung cancer, thoracic aortic aneurysm, colon cancer s/p surgery, and anxiety, presented to the hospital yesterday with acute onset abdominal pain. CT angiogram of abdomen showed intramural hematoma of aorta involving the arch and descending thoracic aorta, severe emphysema and BL wedge resection changes, and a 4cm aneurysm of the ascending aorta. Surgery was consulted who recommended conservative measures. Today, patient began having severe abdominal pain which worsens with any intake, even sips of liquids. It's thought to possibly be from mesenteric ischemia 2/2 reduced blood flow from hematoma. The patient, however, decided not to persue any further workup to treatment and is requesting to be transitioned to comfort measures only. Her family is supportive of her decision. Palliative care is consulted. Thank you kindly for this consult. I will follow as needed. Allergies Allergy/AdvReac Type Severity Reaction Status Date / Time Penicillins Allergy Intermediate RASH; HAS Verified 02/10/19 00:07 TOLERATED MEFOXIN NEGAR Inhibitors AdvReac Intermediate SEVERE Verified 02/10/19 00:07 COUGH Home Medications Home Medications Medication Instructions Recorded Confirmed Type amlodipine [Norvasc] 5 mg PO QAM 04/23/18 02/09/19 History ascorbic acid (vitamin C) 500 mg PO QPM 04/23/18 02/09/19 History cholecalciferol (vitamin D3) 4,000 unit PO DAILY 04/23/18 02/09/19 History [Vitamin D3] cholestyramine-aspartame 1 packet PO BID 04/23/18 02/10/19 History [Prevalite] hydrochlorothiazide [Microzide] 12.5 mg PO QAM 04/23/18 02/10/19 History ipratropium-albuterol [Combivent 1 puff INHALATION QID PRN 04/23/18 02/10/19 History Respimat] levothyroxine [Synthroid] 88 mcg PO DAILY 04/23/18 02/09/19 History metoprolol tartrate [Lopressor] 50 mg PO BID 04/23/18 02/10/19 History cyanocobalamin (vitamin B-12) 1,000 mcg PO DAILY 06/13/18 02/09/19 History [Vitamin B-12] clotrimazole 10 mg PO UD 02/09/19 02/09/19 History folic acid 1 mg PO DAILY 02/09/19 02/09/19 History potassium bicarb-citric acid 25 meq PO BID 02/09/19 02/09/19 History [Klor-Con/EF] ipratropium-albuterol 3 ml INHALATION QID 02/10/19 02/10/19 History lorazepam [Ativan] 0.5 mg PO BID PRN 02/10/19 02/10/19 History Patient History Medical History Hypertension (Chronic) Tobacco use disorder (Chronic) Osteoporosis (Chronic) Venous insufficiency (Chronic) Hypothyroidism (Chronic) Macular degeneration (senile) of retina, unspecified (Chronic) BOB (iron deficiency anemia) (Chronic) History of Clostridium difficile infection (Chronic) COPD exacerbation (Acute) COPD (chronic obstructive pulmonary disease) (Chronic) Surgical History H/O partial resection of colon S/P cholecystectomy S/P hysterectomy S/P thyroidectomy Family History Other Family history non-contributory Social History Preferred Language: German Communication Ability: Effective Slider Assembler Required: No Beliefs That Will Affect Care: None marital status: / Current Living Situation: Family Current Living Situation Comment: son Other Information That Helps Us Care for You: No Feels Safe at Home: Yes Safety Concerns: Feels Safe At This Time Smoking Status: Former smoker Cigarettes Per Day: 20 Hx Alcohol Use: Yes Hx Substance Use: No Review of Systems Constitutional: + weakness Respiratory: + cough and + dyspnea on exertion Cardiovascular: no chest pain and no edema Gastrointestinal: + abdominal pain and + nausea Neurologic: no confusion Psychiatric: no anxiety Physical Exam Constitutional: + thin; no acute distress ENMT: external ear and nose normal, oropharynx normal Neck: normal visual inspection Respiratory: normal respiratory effort, lungs clear to auscultation Cardiovascular: RRR, no murmur, no edema Gastrointestinal (Abdomen): Inspection/Auscultation: normal bowel sounds Percussion/Palpation: + abdomen tender Skin: wound on left ankle covered with kerlix Neurologic: moves all extremities and awake Psychiatric: A+Ox3, euthymic affect Results & Data Vital Signs (Past 12 Hours) Vital Signs Temp Pulse Pulse Resp BP Pulse Ox 02/11/19 07:12 36.9 C 79 16 186/97 H 92 02/11/19 04:26 37.0 C 87 20 165/92 H 94 02/11/19 00:14 86 02/11/19 00:00 36.4 C L 91 H 18 151/85 H 92 Time Spent Midlevel 80 minutes with >50% of the time spent at bedside with patient and family discussing condition and GOC. Attending Spent 30 minutes in addition to above 80 minutes spent by JUAN PABLO Bowling for a total of 110 minutes with greater than 50% of the time spent at bedside discussing patient's current prognosis, treatment plan and goals of care of care.
[2019-02-11] MEDS ORDERED: LORazepam 0.5 MG/1 ML VIAL IV PRN (11:17)
[2019-02-11] MEDS ORDERED: HYDROmorphone INJ 0.5 MG/0.5 ML SYR IV PRN (11:17)
[2019-02-11] MEDS ORDERED: MoRPHine SULFATE 4 MG/ML 1 ML CARP\\VIAL IV PRN (11:17)
[2019-02-11] MEDS ORDERED: MoRPHine SULFATE 2 MG/ML CARP IV PRN (11:17)
[2019-02-11] MEDS ORDERED: ALBUT/IPRATROP 3MG/0.5MG NEB 3 ML VIAL NEB PRN (13:34)
[2019-02-11] MEDS ORDERED: METOPROLOL TARTRATE 50 MG TAB PO SCH (18:00)
--- NOTE | 2019-02-11 19:31 | Progress Note ---
DATE: 02/11/2019 Leticia was seen today. She feels worse. She is not really eating. She does not want anything further done. She is approaching end of life. She is very comfortable with this decision. I have talked this over with Dr. Canales as well as Dr. Jacobo. We will get palliative medicine to see her, but I think at this point the patient does not appear to me that she is going to survive this as she probably has mesenteric ischemia. We will continue to follow her along while she is here in the hospital.
[2019-02-11] MEDS ORDERED: ACETAMINOPHEN 325 MG TAB PO PRN (19:56)
[2019-02-11] MEDS ORDERED: ONDANSETRON INJ 2 MG/ML 2 ML VIAL IV PRN (19:56)
[2019-02-12] MEDS: METOPROLOL TARTRATE 50 MG TAB PO SCH ×4 (05:25→23:42)
[2019-02-12] MEDS: AMLODIPINE BESYLATE 5 MG TAB PO SCH (08:30)
[2019-02-12 10:42] LABS: Basophils # (auto) 0.02 K/uL (0-0.2); Basophils % (auto) 0.3 %; Eosinophils # (auto) 0.17 K/uL (0-0.5); Eosinophils % (auto) 2.5 %; Hematocrit (blood only) 34.4 % (37-47); Hemoglobin 11.3 g/dL (12.0-16.0); Immature Granulocytes # (auto) 0.01 K/uL (0.00-0.02); Immature Granulocytes % (auto) 0.1 %; Lymphocytes # (auto) 0.59 K/uL (1.2-3.4); Lymphocytes % (auto) 8.8 %; Mean Corpuscular Hgb Conc 32.8 g/dL (32-36); Mean Corpuscular Volume 91.7 fL (80-100); Mean Platelet Volume 9.3 fL (7.4-10.4); Monocytes # (auto) 0.87 K/uL (0.11-0.59); Neutrophils # (auto) 5.04 K/uL (1.4-6.5); Neutrophils % (auto) 75.3 %; Platelet Count 106 K/uL (130-400); RDW Coefficient of Variation 13.5 % (11.5-14.5); RDW Standard Deviation 45.2 fL (36.4-46.3); Red Blood Count 3.75 M/uL (4.2-5.4)
[2019-02-12 11:28] LABS: BUN Creatinine Ratio 35.9 (10-20); Calcium 8.5 mg/dl (8.5-10.1); Creatinine Clr Calc Pharmacy 46.7 ml/min; Est GFR (African American) 95.5; Est GFR (Non-African American) 82.4; Potassium 3.4 mmol/L (3.5-5.1)
--- NOTE | 2019-02-12 11:32 | Cardiology Progress Note ---
Date of Service February 12, 2019 Assessment & Plan (1) Intramural aortic hematoma: Patient comfortable. As discussed previously and very well summarized in Dr Bell's consultation note dated 02/10/19 patient has multiple comorbidities making her a poor surgical candidate for a very extensive procedure that would perhaps involve the aortic arch and descending thoracic aorta. The patient has expressed to Dr. Dorantes and I today that she would like to continue with conservative medication therapy rather than comfort measures only, but she has expressed that she will would like to continue being a DNR as per her previously expressed wishes Continue current blood pressure control with metoprolol succinate 75 mg every 6, and amlodipine. I think it is appropriate to continue 100 and morphine as needed for analgesic control, and lorazepam for anxiety on as-needed basis. She is aware that her prognosis is poor. Recommend knee-high sequential pneumatic compression devices for DVT prophylaxis. Subjective Chief complaint: Follow-up chest discomfort, abdominal pain Subjective: Patient sitting comfortably. Telemetry reveals sinus rhythm in the 70 be per minute range with occasional PACs. She notes mild episodic abdominal pain today, no chest pain. Review of Systems Review of Systems: All systems reviewed & are unremarkable except as noted in HPI & below Physical Exam Constitutional: Chronically ill in appearance, no acute distress Respiratory: normal respiratory effort, lungs clear to auscultation Cardiovascular: RRR, no murmur, no edema Extremities: no edema Gastrointestinal (Abdomen): normal bowel sounds, soft, nontender, no hepatosplenomegaly Neurologic: PERRL, EOMI, accommodation nl, no face palsy, no dysarthria Results & Data Vital Signs (Past 12 Hours) Vital Signs Temp Pulse Pulse Pulse Resp BP Pulse Ox 02/12/19 10:50 76 02/12/19 07:47 36.6 C 77 20 153/82 H 99 02/12/19 03:25 36.7 C 83 18 135/71 98 02/12/19 00:00 36.9 C 87 18 157/85 H 96 Laboratory Results CBC 02/12/19 Range/Units 10:32 WBC 6.70 (4.8-10.8) K/uL RBC 3.75 L (4.2-5.4) M/uL Hgb 11.3 L (12.0-16.0) g/dL Hct 34.4 L (37-47) % Plt Count 106 L (130-400) K/uL Neut # (Auto) 5.04 (1.4-6.5) K/uL Lymph # (Auto) 0.59 L (1.2-3.4) K/uL Alexander # (Auto) 0.87 H (0.11-0.59) K/uL Eos # (Auto) 0.17 (0-0.5) K/uL Baso # (Auto) 0.02 (0-0.2) K/uL Intake and Output 02/11/19 02/12/19 02/12/19 22:59 06:59 14:59 Intake Total 80 / 80 Balance 80 / 80 Intake: Oral 80 / 80 Other: # Unmeasured Voids 1 Weight 44.5 kg Diagnostic Findings Summary of radiology report of chest CTA performed 02/09/2019: Acute intramural hematoma of the aorta involving the aortic arch and descending thoracic aorta. Discrete dissection flap not visualized. 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. Severe emphysema with postsurgical changes of bilateral wedge resections Medications Administered Current Inpatient Medications Acetaminophen (Tylenol) 650 mg PO Q4H PRN PRN Reason: Pain or Fever Stop: 03/13/19 19:55 Amlodipine Besylate (Norvasc) 5 mg PO QAM [facility] Stop: 03/14/19 08:59 Last Admin: 02/12/19 08:30 Dose: 5 mg Documented by: Hydromorphone HCl (Dilaudid) 0.5 mg IV Q4H PRN PRN Reason: Pain Stop: 02/25/19 11:16 Lorazepam (Ativan) 0.5 mg PO BID PRN PRN Reason: anxiety Stop: 03/12/19 01:37 Metoprolol Tartrate (Lopressor) 75 mg PO Q6H [facility] Stop: 03/14/19 00:00 Last Admin: 02/12/19 05:25 Dose: 75 mg Documented by: Morphine Sulfate (Morphine Sulfate) 2 mg IV Q4H PRN PRN Reason: Pain Stop: 02/25/19 19:55 Last Admin: 02/11/19 23:35 Dose: 2 mg Documented by: Ondansetron HCl (Zofran) 4 mg IV Q6H PRN PRN Reason: Nausea Stop: 03/13/19 19:55
[2019-02-12] MEDS ORDERED: POTASSIUM CHLORIDE 10 MEQ TABCR PO STA (12:46)
--- NOTE | 2019-02-12 12:47 | Hospitalist Progress Note ---
Date of Service February 12, 2019 Assessment & Plan (1) Intramural aortic hematoma: (2) Aortic aneurysm: (1) Aortic aneurysm and dissection: (2) Intramural aortic hematoma: Emergency room physician discussed case with CT surgeon and Aj Zimmerman, surgical intervention not indicated at this time due to patient's age, comorbidities Medical management recommended Blood pressure in the systolic 130s this afternoon, heart rate around 70s per minute Chest pain improving Discussed with cardiology service Continue with present regimen of metoprolol tartrate 70 mg p.o. every 6 hours and amlodipine 5 mg p.o. daily to ensure good blood pressure and heart rate control Continue to monitor closely telemetry unit Abdominal pain, resolved Unclear etiology at this time She declined imaging Discussed the case with , possibility of mesenteric ischemia contributing PRN morphine Chronic respiratory failure, history of COPD Not in exacerbation We will hold off nebulizer treatments to avoid hypotension and tachycardia Anxiety On PRN lorazepam History of lung cancer, status post right lung resection, history of pneumothorax Follows with Dr. Bell DVT prophylaxis SCDs in light of intramural hematoma Resuscitation status, DNR/DNI per patient Discussed case with patient and her son Fletcher again today They are understanding, agreeable, comfortable with the plan of care Subjective Follow-up for aortic intramural hematoma, aortic aneurysm Seen resting in bed, sleeping but easily awakened Comfortable, not in distress States she feels fine overall today, much improved compared to yesterday No recurrence of abdominal pain since yesterday morning, no nausea vomiting, tolerating diet Denies active chest pain, shortness of breath, palpitations, dizziness Denies other symptoms Review of Systems Review of Systems: All systems reviewed & are unremarkable except as noted in HPI & below Physical Exam Physical Exam: General- oriented x 3, not in distress, speaks in sentences with no effort or accessory muscle use Eyes- anicteric Neck- no JVD Lungs- clear breath sounds bilaterally, no wheezing, no crackles Heart- normal rate, regular rhythm; no murmurs Abdomen- normal bowel sounds, nondistended, soft, nontender Extremities- no pretibial edema, no calf tenderness Neuro- alert, oriented x 3; no gross focal neurologic deficits Skin- warm & dry Results & Data Vital Signs (Past 12 Hours) Vital Signs Temp Pulse Pulse Pulse Resp BP BP 02/12/19 11:27 37 C 75 20 137/77 02/12/19 10:50 76 07/06/19 07:47 36.6 C 77 20 153/82 H 02/12/19 03:25 36.7 C 83 18 135/71 Pulse Ox 02/12/19 11:27 96 02/12/19 10:50 02/12/19 07:47 99 02/12/19 03:25 98 Laboratory Results Laboratory Results - last 24 hr 02/12/19 02/12/19 10:32 10:32 WBC 6.70 RBC 3.75 L Hgb 11.3 L Hct 34.4 L MCV 91.7 MCH 30.1 MCHC 32.8 RDW Std Deviation 45.2 RDW Coeff of Lyle 13.5 Plt Count 106 L MPV 9.3 Immature Gran % (Auto) 0.1 Neut % (Auto) 75.3 Lymph % (Auto) 8.8 Webb % (Auto) 13.0 Eos % (Auto) 2.5 Baso % (Auto) 0.3 Immature Gran # (Auto) 0.01 Neut # (Auto) 5.04 Lymph # (Auto) 0.59 L Webb # (Auto) 0.87 H Eos # (Auto) 0.17 Baso # (Auto) 0.02 Sodium 138 Potassium 3.4 L Chloride 98 Carbon Dioxide 34 H Anion Gap 6.0 BUN 23 H Creatinine 0.63 Est Cr Clr Drug Dosing 46.7 Est GFR ( Amer) 95.5 Est GFR (Non-Af Amer) 82.4 BUN/Creatinine Ratio 35.9 H Glucose 91 Calcium 8.5
[2019-02-12] MEDS: MoRPHine SULFATE 2 MG/ML CARP IV PRN ×2 (12:53→23:41)
[2019-02-12] MEDS ORDERED: Nursing to Pharmacy Communication ONE (16:04)
[2019-02-12] MEDS: LORazepam 0.5 MG TAB PO PRN (19:01)
[2019-02-12] MEDS: POTASSIUM CHLORIDE 25 MEQ PO SCH (19:02)
[2019-02-12] MEDS ORDERED: CHOLESTYRAMINE LIGHT 4 GM PKT PO SCH ×2 (21:00)
[2019-02-13] MEDS: LEVOTHYROXINE SODIUM 88 MCG TABLET PO SCH (06:33)
[2019-02-13] MEDS: METOPROLOL TARTRATE 50 MG TAB PO SCH ×2 (06:33→12:39)
[2019-02-13] MEDS: POTASSIUM CHLORIDE 25 MEQ PO SCH ×2 (09:10→21:47)
[2019-02-13] MEDS: AMLODIPINE BESYLATE 5 MG TAB PO SCH (09:11)
--- NOTE | 2019-02-13 09:55 | Hospitalist Progress Note ---
Date of Service February 13, 2019 Assessment & Plan (1) Intramural aortic hematoma: (2) Aortic aneurysm: (1) Aortic aneurysm and dissection: (2) Intramural aortic hematoma: Emergency room physician discussed case with CT surgeon and Aj Zimmerman, surgical intervention not indicated at this time due to patient's age, comorbidities Medical management recommended BP and HR controlled overall chest pain free Continue with present regimen of metoprolol tartrate 70 mg p.o. every 6 hours and amlodipine 5 mg p.o. daily to ensure good blood pressure and heart rate control Continue to monitor closely telemetry unit Abdominal pain, resolved Unclear etiology at this time She declined imaging Discussed the case with , possibility of mesenteric ischemia contributing PRN morphine Chronic respiratory failure, history of COPD Not in exacerbation We will hold off nebulizer treatments to avoid hypotension and tachycardia Anxiety On PRN lorazepam History of lung cancer, status post right lung resection, history of pneumothorax Follows with Dr. Bell DVT prophylaxis SCDs in light of intramural hematoma Resuscitation status, DNR/DNI per patient Discussed case with patient and her son Fletcher again today They are understanding, agreeable, comfortable with the plan of care Subjective ff up for aortic intramural hematoma, aortic aneurysm seen resting in bed, comfortable states she feels fine overall today denies chest pain, dyspnea, abdominal pain, nausea no other symptoms Review of Systems Review of Systems: All systems reviewed & are unremarkable except as noted in HPI & below Physical Exam Physical Exam: General- oriented x 3, not in distress, speaks in sentences with no effort or accessory muscle use Eyes- anicteric Neck- no JVD Lungs- clear BS BL Heart- normal rate, regular rhythm; no murmurs Abdomen- normal bowel sounds, nondistended, soft, nontender Extremities- no pretibial edema, no calf tenderness Neuro- alert, oriented x 3; no gross focal neurologic deficits Skin- warm & dry Results & Data Vital Signs (Past 12 Hours) Vital Signs Temp Pulse Pulse Pulse Resp BP BP 02/13/19 07:48 36.6 C 77 20 151/82 H 02/13/19 04:00 36.7 C 75 16 149/78 H 02/13/19 00:00 79 02/12/19 23:00 36.7 C 74 16 136/84 Pulse Ox 02/13/19 07:48 96 02/13/19 04:00 92 02/13/19 00:00 02/12/19 23:00 97
[2019-02-13 10:11] LABS: Basophils # (auto) 0.02 K/uL (0-0.2); Basophils % (auto) 0.3 %; Eosinophils # (auto) 0.19 K/uL (0-0.5); Eosinophils % (auto) 2.8 %; Hematocrit (blood only) 35.6 % (37-47); Hemoglobin 11.9 g/dL (12.0-16.0); Immature Granulocytes # (auto) 0.02 K/uL (0.00-0.02); Immature Granulocytes % (auto) 0.3 %; Lymphocytes # (auto) 0.68 K/uL (1.2-3.4); Lymphocytes % (auto) 9.9 %; Mean Corpuscular Hgb Conc 33.4 g/dL (32-36); Mean Corpuscular Volume 91.3 fL (80-100); Mean Platelet Volume 9.3 fL (7.4-10.4); Monocytes # (auto) 0.99 K/uL (0.11-0.59); Monocytes % (auto) 14.5 %; Neutrophils # (auto) 4.95 K/uL (1.4-6.5); Neutrophils % (auto) 72.2 %; Platelet Count 111 K/uL (130-400); RDW Coefficient of Variation 13.4 % (11.5-14.5); RDW Standard Deviation 44.4 fL (36.4-46.3); White Blood Count 6.85 K/uL (4.8-10.8)
--- NOTE | 2019-02-13 10:16 | Surgery Progress Note ---
Date of Service February 13, 2019 Assessment & Plan (1) Intramural aortic hematoma: -pt. does not want aggressive measures taken -maintain BP control -continue small meal portions to alleviate abdominal pain -no further recommendations from thoracic surgery standpoint Subjective Pt. notes her breathing is currently comfortable. No SOB. No CP. She notes her abdomen does not hurt if she eats small portions. Results & Data Vital Signs (Past 12 Hours) Vital Signs Temp Pulse Pulse Pulse Resp BP BP 02/13/19 07:48 36.6 C 77 20 151/82 H 02/13/19 04:00 36.7 C 75 16 149/78 H 02/13/19 00:00 79 02/12/19 23:00 36.7 C 74 16 136/84 Pulse Ox 02/13/19 07:48 96 02/13/19 04:00 92 02/13/19 00:00 02/12/19 23:00 97
[2019-02-13 10:42] LABS: BUN Creatinine Ratio 31.5 (10-20); Calcium 8.4 mg/dl (8.5-10.1); Creatinine Clr Calc Pharmacy 47.7 ml/min; Est GFR (African American) 97.5; Est GFR (Non-African American) 84.2; Potassium 4.2 mmol/L (3.5-5.1)
[2019-02-13] MEDS: MoRPHine SULFATE 2 MG/ML CARP IV PRN (11:34)
--- NOTE | 2019-02-13 12:40 | Cardiology Progress Note ---
Date of Service February 13, 2019 Assessment & Plan (1) Intramural aortic hematoma: (2) Aortic aneurysm: Intramural hematoma involving the aortic arch and descending thoracic aorta. 4 cm ascending thoracic aortic aneurysm. No dissection flap noted on CT. Blood pressure improved this morning at 136/76. Amlodipine has been increased to 5 mg daily on 02/12/2019. She remains on metoprolol tartrate 25 mg p.o. every 6 hours. Will transition metoprolol to labetalol, starting with dose of 100 mg 3 times daily. Subjective Chief complaint: Follow-up chest pain, abdominal pain Subjective: Patient with mild abdominal discomfort just before my arrival. She received IV morphine with palliation of her discomfort. She states she had a better day yesterday. Her cqkyruun-ew-xqu and granddaughter are visiting her and she is enjoying the company. Telemetry reveals sinus rhythm with occasional PACs in the 70 be per minute range. Review of Systems Review of Systems: All systems reviewed & are unremarkable except as noted in HPI & below Physical Exam Physical Exam: Temp Pulse Resp BP Pulse Ox 36.4 C L 72 20 136/76 93 02/13/19 11:40 02/13/19 11:40 02/13/19 11:40 02/13/19 11:40 02/13/19 11:40 Constitutional: WD/WN, vitals as above + thin Respiratory: normal respiratory effort, lungs clear to auscultation Cardiovascular: RRR, no murmur, no edema Gastrointestinal (Abdomen): Percussion/Palpation: abdomen nontender and no guarding Neurologic: PERRL, EOMI, accommodation nl, no face palsy, no dysarthria Results & Data Vital Signs (Past 12 Hours) Vital Signs Temp Pulse Resp BP BP Pulse Ox 02/13/19 11:40 36.4 C L 72 20 136/76 93 02/13/19 07:48 36.6 C 77 20 151/82 H 96 02/13/19 04:00 36.7 C 75 16 149/78 H 92 Laboratory Results CBC 02/13/19 Range/Units 10:01 WBC 6.85 (4.8-10.8) K/uL RBC 3.90 L (4.2-5.4) M/uL Hgb 11.9 L (12.0-16.0) g/dL Hct 35.6 L (37-47) % Plt Count 111 L (130-400) K/uL Neut # (Auto) 4.95 (1.4-6.5) K/uL Lymph # (Auto) 0.68 L (1.2-3.4) K/uL [place] # (Auto) 0.99 H (0.11-0.59) K/uL Eos # (Auto) 0.19 (0-0.5) K/uL Baso # (Auto) 0.02 (0-0.2) K/uL Comprehensive Metabolic Panel 02/13/19 Range/Units 10:01 Sodium 135 L (136-145) mmol/L Potassium 4.2 D (3.5-5.1) mmol/L Chloride 98 (98-107) mmol/L Carbon Dioxide 35 H (21-32) mmol/L BUN 19 H (7-18) mg/dl Creatinine 0.59 L (0.6-1.2) mg/dl Glucose 99 (70-99) mg/dl Calcium 8.4 L (8.5-10.1) mg/dl Intake and Output 02/12/19 02/13/19 02/13/19 22:59 06:59 14:59 Intake Total 150 / 350 100 / 350 Balance 150 / 348 100 / 348 Intake: Oral 150 / 350 100 / 350 Other: # Unmeasured Voids 1 2 Weight 42.6 kg Diagnostic Findings EKG performed 02/12/2019 1:34 AM revealed normal sinus rhythm with sinus arrhythmia at 76 bpm, age-indeterminate septal infarction pattern noted. No acute ST changes.
[2019-02-13] MEDS: LABETALOL HCL 100 MG TAB PO SCH ×2 (15:29→21:48)
[2019-02-13] MEDS: LORazepam 0.5 MG TAB PO PRN (17:16)
[2019-02-14] MEDS: LEVOTHYROXINE SODIUM 88 MCG TABLET PO SCH (06:20)
[2019-02-14 06:27] LABS: BUN Creatinine Ratio 32.8 (10-20); Calcium 8.4 mg/dl (8.5-10.1); Creatinine Clr Calc Pharmacy 46.6 ml/min; Est GFR (Non-African American) 83.7; Magnesium 2.1 mg/dl (1.8-2.4); Potassium 3.5 mmol/L (3.5-5.1)
[2019-02-14] MEDS: LABETALOL HCL 100 MG TAB PO SCH ×3 (09:34→21:17)
[2019-02-14] MEDS: AMLODIPINE BESYLATE 5 MG TAB PO SCH (09:34)
--- NOTE | 2019-02-14 10:28 | Cardiology Progress Note ---
Date of Service February 14, 2019 Assessment & Plan (1) Intramural aortic hematoma: Continue analgesics for abdominal pain as necessary. Patient is aware that her prognosis is poor. Her [id number]-vse had been visiting her yesterday. As previously discussed. Patient seen by palliative care, she is not ready for comfort measures only strategy. (2) Aortic aneurysm: 4 mm ascending thoracic aortic aneurysm. Once again not a surgical candidate. (3) Hypertension: Blood pressure is trended toward improvement. Most recent reading of 157/92 placed in the setting of recurrent abdominal pain. Otherwise systolic blood pressures have been improved having been transitioned from metoprolol every 6 hours to a 3 times per day regimen of labetalol, and daily amlodipine. Continue current treatment with plans to adjust labetalol as necessary. Subjective Chief complaint: Follow-up chest pain abdominal pain Subjective: Patient recently completed breakfast and has had recurrence of her abdominal pain. Review of Systems Review of Systems: All systems reviewed & are unremarkable except as noted in HPI & below Physical Exam Physical Exam: Temp Pulse Resp BP Pulse Ox 36.5 C 83 16 157/90 H 99 02/14/19 07:09 02/14/19 07:09 02/14/19 07:09 02/14/19 07:09 02/14/19 07:09 Constitutional: + ill appearing Respiratory: normal respiratory effort, lungs clear to auscultation Cardiovascular: RRR, no murmur, no edema Vessels: no JVD Extremities: no edema Gastrointestinal (Abdomen): Inspection/Auscultation: abdomen not distended Percussion/Palpation: no guarding Mild tenderness noted on palpation of the abdomen Neurologic: moves all extremities; no focal motor deficits Results & Data Vital Signs (Past 12 Hours) Vital Signs Temp Pulse Pulse Resp BP Pulse Ox 02/14/19 07:09 36.5 C 83 16 157/90 H 99 02/14/19 05:26 93 02/14/19 04:00 36.9 C 82 19 136/77 100 02/14/19 00:05 36.3 C L 82 18 113/67 99 02/13/19 23:22 83 Medications Administered Current Inpatient Medications Acetaminophen (Tylenol) 650 mg PO Q4H PRN PRN Reason: Pain or Fever Stop: 03/13/19 19:55 [facility] [place]: 03/14/19 08:59 Last Admin: 02/14/19 09:34 Dose: 5 mg Documented by: Cholestyramine Resin (Questran) 4 gm PO DAILY@2130 [facility] Stop: 03/16/19 21:29 Hydromorphone HCl (Dilaudid) 0.5 mg IV Q4H PRN PRN Reason: Pain Stop: 02/25/19 11:16 Labetalol HCl (Normodyne) 100 mg PO TID [facility] Stop: 03/15/19 13:59 Last Admin: 02/14/19 09:34 Dose: 100 mg Documented by: Levothyroxine Sodium (Synthroid) 88 mcg PO DAILYBB [facility] Stop: 03/15/19 06:29 Last Admin: 02/14/19 06:20 Dose: 88 mcg Documented by: Lorazepam (Ativan) 0.5 mg PO BID PRN PRN Reason: anxiety Stop: 03/12/19 01:37 Last Admin: 02/13/19 17:16 Dose: 0.5 mg Documented by: Miscellaneous (Order Awaiting Action) 1 ea N/A QS [facility] Stop: 03/15/19 00:00 Last Admin: 02/14/19 08:06 Dose: Not Given Documented by: Morphine Sulfate (Morphine Sulfate) 2 mg IV Q4H PRN PRN Reason: Pain Stop: 02/25/19 19:55 Last Admin: 02/13/19 11:34 Dose: 2 mg Documented by: Ondansetron HCl (Zofran) 4 mg IV Q6H PRN PRN Reason: Nausea Stop: 03/13/19 19:55
[2019-02-14] MEDS: MoRPHine SULFATE 2 MG/ML CARP IV PRN (14:04)
--- NOTE | 2019-02-14 14:19 | Palliative Care Progress Note ---
Date of Service February 14, 2019 Assessment & Plan (1) Comfort measures only status: -On Thursday evening, patient began to feel better with increased pain relief. She apparently made the decision to reverse her "comfort measures only" order and resume conservative care. -Today, patient states that she is okay with continuing her regular medications, but her overall goal still is for comfort. She is currently undecided about what her wishes are for discharge. Patient's main concern is that she wants to return home with her son. However, she doesn't know what her level of function is going to be and if her son/jptshwth-ft-kpe can provide the care. -PT/OT are to be evaluating patient today. They may recommend SNF for rehab, which I don't know if patient would be agreeable to. Options are to go home with private duty caregivers and possibly hospice, SNF for rehab then transition to long-term care or go home with or without hospice, or go straight to SNF for residency. These options were discussed with the patient. SHe gave me permission to speak to her son, John, about discharge planning as well. -Called and spoke with John. He stated that he noticed his mother was a little confused this morning-- was talking about being in a trailer. I did tell him that patient recalled saying that to him and recognizes that she is getting a little disoriented at times, likely related to narcotics and hospitalization. He verbalized understanding. -John states that his preference would be for patient to go to SNF for rehab, then use that time to decide whether or not she could come home and whether or not she would then have hospice care. I stated that PT/OT will see her then we will need to talk to the patient about what her wishes are. Also gave option of paying for private duty caregivers in the home as well to supplement care. -We will continue to follow for decision making and supportive care. (2) Epigastric abdominal pain: (3) Aortic aneurysm and dissection: (4) Intramural aortic hematoma: Subjective Patient reversed her decision on "comfort measures only", and now is back on her regular medications. She continues to have intermittent abdominal pain, but it is much better. Review of Systems Constitutional: + weakness Ear, Nose, Mouth, Throat: no dysphagia Respiratory: + cough and + dyspnea on exertion Gastrointestinal: + abdominal pain (while eating or moving) and + nausea (occasional, none at this time) Neurologic: + confusion (patient reports she is having periods of confusion/delirium) Physical Exam Constitutional: + thin; no acute distress ENMT: external ear and nose normal, oropharynx normal Neck: normal visual inspection Respiratory: normal respiratory effort, lungs clear to auscultation Cardiovascular: RRR, no murmur, no edema Gastrointestinal (Abdomen): Inspection/Auscultation: normal bowel sounds Percussion/Palpation: + abdomen tender Neurologic: moves all extremities and awake Psychiatric: A+Ox3, euthymic affect Results & Data Vital Signs (Past 12 Hours) Vital Signs Temp Pulse Resp BP Pulse Ox 02/14/19 11:36 37.2 C 93 H 16 128/77 94 02/14/19 07:09 36.5 C 83 16 157/90 H 99 02/14/19 05:26 93 02/14/19 04:00 36.9 C 82 19 136/77 100 PG Care Time/CCT Prolonged Care Time Prolonged Care Time: Yes Total Prolonged Care Time: 65 Time Spent Midlevel [65] minutes with >50% of time spent at bedside with [patient and family] discussing [condition and GOC].
--- NOTE | 2019-02-14 18:29 | Hospitalist Progress Note ---
Date of Service February 14, 2019 Assessment & Plan (1) Intramural aortic hematoma: (2) Aortic aneurysm: (1) Aortic aneurysm and dissection: (2) Intramural aortic hematoma: Emergency room physician discussed case with CT surgeon and Aj Zimmerman, surgical intervention not indicated at this time due to patient's age, comorbidities Medical management recommended BP and heart rate continues to be controlled No chest pain Transition from metoprolol tartrate to labetalol 100 mg p.o. 3 times daily, continued on amlodipine 5 mg p.o. daily ensure good blood pressure and heart rate control Continue to monitor closely telemetry unit Abdominal pain, vomiting Unclear etiology at this time Relieved by PRN analgesics Discussed the case with , possibility of mesenteric ischemia contributing PRN morphine Will order CT abdomen pelvis today Chronic respiratory failure, history of COPD Not in exacerbation We will hold off nebulizer treatments to avoid hypotension and tachycardia Anxiety On PRN lorazepam History of lung cancer, status post right lung resection, history of pneumothorax Follows with Dr. Bell DVT prophylaxis SCDs in light of intramural hematoma Resuscitation status, DNR/DNI per patient Discussed case with patient She is understanding, agreeable, comfortable with the plan of care All questions answered (3) Unspecified severe protein-calorie malnutrition: Subjective Follow-up for aortic intramural hematoma, aortic aneurysm Seen sitting up in bedside chair, comfortable States she is having intermittent abdominal pain, worse after eating, relieved by PRN analgesics Denies chest pain, shortness of breath, palpitations, dizziness, nausea vomiting No other symptoms Review of Systems Review of Systems: All systems reviewed & are unremarkable except as noted in HPI & below Physical Exam Physical Exam: General- oriented x 3, not in distress, speaks in sentences with no effort or accessory muscle use Eyes- anicteric Neck- no JVD Lungs- clear breath sounds bilaterally No wheezing no crackles Heart- normal rate, regular rhythm; no murmurs Abdomen- normal bowel sounds, nondistended, soft, nontender Extremities- no pretibial edema, no calf tenderness Neuro- alert, oriented x 3; no gross focal neurologic deficits Skin- warm & dry Results & Data Vital Signs (Past 12 Hours) Vital Signs Temp Pulse Pulse Resp BP BP Pulse Ox 02/14/19 16:54 94 H 02/14/19 15:29 36.8 C 89 20 92/57 L 95 07/08/19 11:36 37.2 C 93 H 16 128/77 94 02/14/19 07:09 36.5 C 83 16 157/90 H 99 Laboratory Results Laboratory Results - last 24 hr 02/14/19 02/14/19 02/14/19 05:16 05:41 16:19 Sodium 138 Potassium 3.5 D Chloride 98 Carbon Dioxide 35 H Anion Gap 5.0 BUN 19 H Creatinine 0.60 Est Cr Clr Drug Dosing 46.6 Est GFR ( Amer) 97.0 Est GFR (Non-Af Amer) 83.7 BUN/Creatinine Ratio 32.8 H Glucose 88 POC Glucose 86 116 H Calcium 8.4 L Magnesium 2.1 Urine Color Urine Appearance Urine pH Ur Specific [place] Urine Protein Urine Glucose (UA) Urine Ketones Urine Blood Urine Nitrite Urine Bilirubin Urine Urobilinogen Ur Leukocyte Esterase Urine WBC (Auto) Urine RBC (Auto) U Hyaline Cast (Auto) U Epithel Cells (Auto) Urine Bacteria (Auto) 02/14/19 18:30 Sodium Potassium Chloride Carbon Dioxide Anion Gap BUN Creatinine Est Cr Clr Drug Dosing Est GFR ( Amer) Est GFR (Non-Af Amer) BUN/Creatinine Ratio Glucose POC Glucose Calcium Magnesium Urine Color Dark Yellow Urine Appearance Cloudy A Urine pH 6.0 Ur Specific [place] 1.025 Urine Protein 1+ H Urine Glucose (UA) Negative Urine Ketones Trace H Urine Blood Negative Urine Nitrite Positive A Urine Bilirubin Negative Urine Urobilinogen Negative Ur Leukocyte Esterase 3+ H Urine WBC (Auto) >30 H Urine RBC (Auto) 5-10 H U Hyaline Cast (Auto) 1-5 U Epithel Cells (Auto) >30 H Urine Bacteria (Auto) Negative
[2019-02-14 19:50] LABS: Appearance Urine Cloudy (Clear); Bacteria Urine Automated Negative (Negative); Blood Urine Negative (Negative); Color Urine Dark Yellow; Epithelial Cell Urine Auto >30 /lpf (0-5); Glucose Urine UA Negative (Negative); Ketones Urine Trace (Negative); Leukocyte Esterase Urine 3+ (Negative); Nitrite Urine Positive (Negative); Protein Urine 1+ (Negative); Specific Gravity Urine 1.025 (1.000-1.030); Urobilinogen Urine Negative (Negative); WBC Urine Automated >30 /hpf (0-5)
[2019-02-14 19:58] LABS: Bilirubin Urine Negative (Negative); Ictotest Urine Negative (Negative)
--- NOTE | 2019-02-14 20:51 | CT Scan Report ---
CT OF THE ABDOMEN AND PELVIS WITHOUT CONTRAST CLINICAL HISTORY: Abdominal pain. COMPARISON STUDY: CT of the abdomen and pelvis February 09, 2019. TECHNIQUE: Axial images of the abdomen and pelvis were obtained without IV contrast. Images were revi ewed in the axial, sagittal, and coronal planes. Automated exposure control was utilized for the kelsie dy. A dose lowering technique was utilized adhering to the principles of ALARA. FINDINGS: Imaged portions of the lower chest demonstrate small bilateral pleural effusions. There are postoperative findings within the right lower lobe which are partially imaged. There is emphysema. M oderate cardiomegaly is noted. Evaluation of the abdomen and pelvis is compromised given paucity of i ntra-abdominal fat and lack of IV contrast. There is extensive atherosclerotic plaque of the abdomina l aorta and bilateral iliac vessels. Unenhanced images of liver, spleen, adrenal glands and pancreas are unremarkable. No evidence for a bowel obstruction. There are postoperative findings within the martha wel. No pneumatosis, free air or portal venous gas is present. A 3.9 x 2 cm loculated fluid collectio n within the left lower quadrant mesentery is similar to PET/CT of January 18, [address] of February 09, 2019. No lymphadenopathy is present. There are no suspicious osseous lesions. Right renal calculi are noted. There is no hydronephrosis. IMPRESSION: 1. Exam significantly compromised given the lack of IV contrast and paucity of intra-abdominal fat. 2. No acute process within the abdomen or pelvis on unenhanced exam. 3. 3.9 x 2 cm left lower quadrant mesentery water attenuation focus which is unchanged since PET/CT o f January 18, 2018 and is of doubtful significance. Electronically signed by: Piyush Telles M.D. 02/14/2019 8:48 PM
[2019-02-14] MEDS: POTASSIUM CHLORIDE 10 MEQ TABCR PO SCH (21:15)
[2019-02-14] MEDS: cefTRIAXone SODIUM 1,000 MG in DEXTROSE 5% 50 ML IV SCH (22:18)
[2019-02-14] MEDS: CHOLESTYRAMINE LIGHT 4 GM PKT PO SCH (22:18)
[2019-02-15] MEDS: MoRPHine SULFATE 2 MG/ML CARP IV PRN ×3 (00:54→23:28)
[2019-02-15] MEDS: LEVOTHYROXINE SODIUM 88 MCG TABLET PO SCH (05:45)
[2019-02-15] MEDS ORDERED: POTASSIUM CHLORIDE 10 MEQ TABCR PO STA (06:25)
[2019-02-15 06:58] LABS: Basophils # (auto) 0.01 K/uL (0-0.2); Basophils % (auto) 0.2 %; Eosinophils # (auto) 0.17 K/uL (0-0.5); Eosinophils % (auto) 3.9 %; Hematocrit (blood only) 31.9 % (37-47); Hemoglobin 10.7 g/dL (12.0-16.0); Lymphocytes # (auto) 0.51 K/uL (1.2-3.4); Lymphocytes % (auto) 11.7 %; Mean Corpuscular Hgb Conc 33.5 g/dL (32-36); Mean Corpuscular Volume 93.8 fL (80-100); Mean Platelet Volume 9.1 fL (7.4-10.4); Monocytes # (auto) 0.77 K/uL (0.11-0.59); Monocytes % (auto) 17.7 %; Neutrophils # (auto) 2.89 K/uL (1.4-6.5); Neutrophils % (auto) 66.5 %; Platelet Count 109 K/uL (130-400); RDW Coefficient of Variation 13.6 % (11.5-14.5); RDW Standard Deviation 46.4 fL (36.4-46.3); White Blood Count 4.35 K/uL (4.8-10.8)
[2019-02-15 07:25] LABS: BUN Creatinine Ratio 28.9 (10-20); Calcium 8.2 mg/dl (8.5-10.1); Est GFR (African American) 101.7; Est GFR (Non-African American) 87.7; Magnesium 1.9 mg/dl (1.8-2.4)
[2019-02-15] MEDS: LABETALOL HCL 100 MG TAB PO SCH ×3 (08:42→22:02)
[2019-02-15] MEDS: POTASSIUM CHLORIDE 10 MEQ TABCR PO SCH ×2 (08:43→21:37)
[2019-02-15] MEDS: AMLODIPINE BESYLATE 5 MG TAB PO SCH (08:43)
--- NOTE | 2019-02-15 15:28 | Hospitalist Progress Note ---
Date of Service February 15, 2019 Assessment & Plan (1) Intramural aortic hematoma: (2) Aortic aneurysm: (1) Aortic aneurysm and dissection: (2) Intramural aortic hematoma: Emergency room physician discussed case with CT surgeon and Aj Zimmerman, surgical intervention not indicated at this time due to patient's age, comorbidities Medical management recommended BP and heart rate under good control No chest pain Transitioned from metoprolol tartrate to labetalol 100 mg p.o. 3 times daily, continued on amlodipine 5 mg p.o. daily Tolerating well Abdominal pain, vomiting Unclear etiology at this time Relieved by PRN analgesics Discussed the case with , possibility of mesenteric ischemia contributing PRN morphine CT abdomen/pelvis: Unrevealing No abdominal pain today Chronic respiratory failure, history of COPD Not in exacerbation We will hold off nebulizer treatments to avoid hypotension and tachycardia Anxiety On PRN lorazepam History of lung cancer, status post right lung resection, history of pneumothorax Follows with Dr. Bell DVT prophylaxis SCDs in light of intramural hematoma Resuscitation status, DNR/DNI per patient Disposition PT OT evaluation performed, recommend return home Patient will benefit from home health services Discussed case with patient She is understanding, agreeable, comfortable with the plan of care All questions answered (3) Unspecified severe protein-calorie malnutrition: Subjective Follow-up for aortic intramural hematoma, aortic aneurysm Seen resting in bedside chair, comfortable, nondistressed No abdominal pain this morning Denies chest pain, shortness of breath, dizziness Ambulates with no problems No other symptoms Review of Systems Review of Systems: All systems reviewed & are unremarkable except as noted in HPI & below Physical Exam Physical Exam: General- oriented x 3, not in distress, speaks in sentences with no effort or accessory muscle use Eyes- anicteric Neck- no JVD Lungs- clear BS, no wheezing, crackles bilateral Heart- normal rate, regular rhythm; no murmurs Abdomen- normal bowel sounds, nondistended, soft, nontender Extremities- no pretibial edema, no calf tenderness Neuro- alert, oriented x 3; no gross focal neurologic deficits Skin- warm & dry Results & Data Vital Signs (Past 12 Hours) Vital Signs Temp Pulse Pulse Resp BP BP Pulse Ox 02/15/19 15:18 36.5 C 87 18 128/75 96 02/15/19 13:13 96 H 140/79 02/15/19 11:15 37 C 86 16 111/63 97 02/15/19 11:02 02/15/19 07:07 36.8 C 83 19 129/72 96 02/15/19 06:23 82 135/76 02/15/19 04:00 36.8 C 82 18 121/73 95 Pulse Ox 02/15/19 15:18 02/15/19 13:13 02/15/19 11:15 02/15/19 11:02 98 02/15/19 07:07 02/15/19 06:23 02/15/19 04:00 Laboratory Results Laboratory Results - last 24 hr 02/14/19 02/14/19 02/15/19 16:19 18:30 06:48 WBC 4.35 L RBC 3.40 L Hgb 10.7 L Hct 31.9 L MCV 93.8 MCH 31.5 MCHC 33.5 RDW Std Deviation 46.4 H RDW Coeff of Lyle 13.6 Plt Count 109 L MPV 9.1 Immature Gran % (Auto) 0.0 Neut % (Auto) 66.5 Lymph % (Auto) 11.7 [place] % (Auto) 17.7 Eos % (Auto) 3.9 Baso % (Auto) 0.2 Immature Gran # (Auto) 0.00 Neut # (Auto) 2.89 Lymph # (Auto) 0.51 L [place] # (Auto) 0.77 H Eos # (Auto) 0.17 Baso # (Auto) 0.01 Sodium Potassium Chloride Carbon Dioxide Anion Gap BUN Creatinine Est Cr Clr Drug Dosing Est GFR ( Amer) Est GFR (Non-Af Amer) BUN/Creatinine Ratio Glucose POC Glucose 116 H Calcium Magnesium Urine Color Dark Yellow Urine Appearance Cloudy A Urine pH 6.0 Ur Specific [place] 1.025 Urine Protein 1+ H Urine Glucose (UA) Negative Urine Ketones Trace H Urine Blood Negative Urine Nitrite Positive A Urine Bilirubin Negative Urine Urobilinogen Negative Ur Leukocyte Esterase 3+ H Urine WBC (Auto) >30 H Urine RBC (Auto) 5-10 H U Hyaline Cast (Auto) 1-5 U Epithel Cells (Auto) >30 H Urine Bacteria (Auto) Negative 02/15/19 06:48 WBC RBC Hgb Hct MCV MCH MCHC RDW Std Deviation RDW Coeff of [place] Plt Count MPV Immature Gran % (Auto) Neut % (Auto) Lymph % (Auto) [place] % (Auto) Eos % (Auto) Baso % (Auto) Immature Gran # (Auto) Neut # (Auto) Lymph # (Auto) [place] # (Auto) Eos # (Auto) Baso # (Auto) Sodium 136 Potassium 4.0 Chloride 98 Carbon Dioxide 35 H Anion Gap 3.0 BUN 15 Creatinine 0.52 L Est Cr Clr Drug Dosing 54.0 Est GFR ( Amer) 101.7 Est GFR (Non-Af Amer) 87.7 BUN/Creatinine Ratio 28.9 H Glucose 87 POC Glucose Calcium 8.2 L Magnesium 1.9 Urine Color Urine Appearance Urine pH Ur Specific [place] Urine Protein Urine Glucose (UA) Urine Ketones Urine Blood Urine Nitrite Urine Bilirubin Urine Urobilinogen Ur Leukocyte Esterase Urine WBC (Auto) Urine RBC (Auto) U Hyaline Cast (Auto) U Epithel Cells (Auto) Urine Bacteria (Auto)
[2019-02-15] MEDS: LORazepam 0.5 MG TAB PO PRN (17:08)
[2019-02-15] MEDS: CHOLESTYRAMINE LIGHT 4 GM PKT PO SCH (21:39)
[2019-02-15] MEDS: cefTRIAXone SODIUM 1,000 MG in DEXTROSE 5% 50 ML IV SCH (21:51)
[2019-02-16] MEDS: LEVOTHYROXINE SODIUM 88 MCG TABLET PO SCH (06:15)
[2019-02-16] MEDS: POTASSIUM CHLORIDE 10 MEQ TABCR PO SCH ×2 (08:56→22:01)
[2019-02-16] MEDS: LABETALOL HCL 100 MG TAB PO SCH ×3 (08:57→22:10)
[2019-02-16] MEDS: AMLODIPINE BESYLATE 5 MG TAB PO SCH (08:57)
--- NOTE | 2019-02-16 11:33 | Palliative Care Progress Note ---
Date of Service February 16, 2019 Assessment & Plan (1) Goals of care, counseling/discussion: -Patient is doing much better. She only occasionally has some abdominal pain. Has not had any morphine today. -Waiting for discharge to facility for rehab. Either [facility] or [facility]. Case management is following. -Patient will consider hospice care in the future if needed. For now, she hopes to get back to her baseline and return home where she lives with her son and his family. -Palliative care will officially sign off. Please contact me with any further needs. (2) Epigastric abdominal pain: (3) Aortic aneurysm and dissection: (4) Intramural aortic hematoma: Subjective Patient is feeling well. No confusion today. Review of Systems Review of Systems: Occasional abdominal pain. No N/V, chest pain, SOB, or other complaints. Physical Exam Physical Exam: Constitutional + thin; +frail appearing; no acute distress ENMT external ear and nose normal, oropharynx normal Neck normal visual inspection Respiratory normal respiratory effort, lungs clear to auscultation Cardiovascular RRR, no murmur, no edema Gastrointestinal (Abdomen) Inspection/Auscultation: normal bowel sounds Percussion/Palpation: abdomen nontender Neurologic moves all extremities and awake Psychiatric A+Ox3, euthymic affect Results & Data Vital Signs (Past 12 Hours) Vital Signs Temp Pulse Pulse Pulse Resp BP Pulse Ox 02/16/19 07:21 97 H 02/16/19 07:16 36.5 C 93 H 16 139/78 94 02/16/19 04:03 37.0 C 84 18 122/67 95 02/16/19 00:00 93 H PG Care Time/CCT Total # of Minutes Spent Total Time Spent with Patient: Total time spent is greater than 50% in co ordination of care (as documented) at patient's floor/unit and/or counseling patient: Time Spent Midlevel 40 minutes with >50% of the time spent at bedside with patient discussing condition and POC.
[2019-02-16] MEDS ORDERED: AMLODIPINE BESYLATE 5 MG TAB PO ONE (12:05)
[2019-02-16] MEDS: OXYCODONE HCL IR 5 MG TAB (IMMEDIATE RELEASE) PO PRN ×2 (14:29→22:09)
[2019-02-16] MEDS: LORazepam 0.5 MG TAB PO PRN (17:53)
--- NOTE | 2019-02-16 18:23 | Progress Note ---
DATE: 02/16/2019 Ms. Florentino is seen today with her grandson actually. She is in wonderful spirits. She states her abdominal pain has greatly improved. She is not requiring parenteral narcotics anymore. She wants to return home with her son. At this point she understands quite well what her prognosis is from this, but she is very thankful she is not having pain. We will continue to follow her along, but from our standpoint, there is really nothing to offer.
--- NOTE | 2019-02-16 18:28 | Hospitalist Progress Note ---
Date of Service February 16, 2019 Assessment & Plan (1) Intramural aortic hematoma: (2) Aortic aneurysm: -Aortic aneurysm and dissection has been a concern during this hospital stay because of evidence of aneurysm and hematoma -Emergency room physician discussed case with CT surgeon and Aj Zimmerman, surgical intervention not indicated at this time due to patient's age, comorbidities -palliative care services were consulted -as per current medical management, patient has been medically stable and it does not appear that an acute dissection will occur in the near future -continue labetalol 100 mg p.o. 3 times daily, have increased amlodipine from 5 mg to 10 mg daily for better blood pressure control -abdominal pain may be due to aortic aneurysm versus some component of mesenteric ischemia; encourage small meal portions to alleviate abdominal pain, will try to transition patient from IV morphine prn to oral pain medication prn Chronic respiratory failure, history of COPD Not in exacerbation History of lung cancer, status post right lung resection, history of pneumothorax Follows with Dr. Bell Hypothyroidism continue Levothyroxine Anxiety On PRN lorazepam DVT prophylaxis SCDs Code status, DNR/DNI (3) Unspecified severe protein-calorie malnutrition: Subjective Patient intermittently with pain of abdomen and to back. She is receptive to trying oral pain medication rather than IV pain medication. Patient denies being more short of breath compare to baseline. no vomiting. no dizziness. no lightheadedness Physical Exam Constitutional: WD/WN, vitals as above Eyes: EOM intact bilaterally ENMT: external ear and nose normal, oropharynx normal Respiratory: normal respiratory effort, lungs clear to auscultation Cardiovascular: Rate/Rhythm: regular rate and regular rhythm Gastrointestinal (Abdomen): normal bowel sounds, soft, nontender, no hepatosplenomegaly Musculoskeletal: Head/Neck/Chest: normocephalic and head atraumatic Neurologic: PERRL, EOMI, accommodation nl, no face palsy, no dysarthria Psychiatric: Orientation: cooperative Results & Data Vital Signs (Past 12 Hours) Vital Signs Temp Pulse Pulse Resp BP Pulse Ox 02/16/19 15:07 36.9 C 90 20 124/75 97 02/16/19 11:48 36.8 C 16 135/77 94 02/16/19 07:21 97 H 02/16/19 07:16 36.5 C 93 H 16 139/78 94
[2019-02-16] MEDS: CHOLESTYRAMINE LIGHT 4 GM PKT PO SCH (22:01)
[2019-02-16] MEDS: cefTRIAXone SODIUM 1,000 MG in DEXTROSE 5% 50 ML IV SCH (22:02)
[2019-02-17] MEDS: LEVOTHYROXINE SODIUM 88 MCG TABLET PO SCH (06:04)
[2019-02-17 06:44] LABS: Basophils # (auto) 0.01 K/uL (0-0.2); Basophils % (auto) 0.2 %; Eosinophils # (auto) 0.17 K/uL (0-0.5); Eosinophils % (auto) 3.9 %; Hematocrit (blood only) 30.7 % (37-47); Hemoglobin 10.2 g/dL (12.0-16.0); Immature Granulocytes # (auto) 0.01 K/uL (0.00-0.02); Immature Granulocytes % (auto) 0.2 %; Lymphocytes # (auto) 0.45 K/uL (1.2-3.4); Lymphocytes % (auto) 10.4 %; Mean Corpuscular Hgb Conc 33.2 g/dL (32-36); Mean Corpuscular Volume 92.5 fL (80-100); Mean Platelet Volume 8.9 fL (7.4-10.4); Monocytes # (auto) 0.72 K/uL (0.11-0.59); Monocytes % (auto) 16.7 %; Neutrophils # (auto) 2.96 K/uL (1.4-6.5); Neutrophils % (auto) 68.6 %; Platelet Count 123 K/uL (130-400); RDW Coefficient of Variation 13.7 % (11.5-14.5); Red Blood Count 3.32 M/uL (4.2-5.4); White Blood Count 4.32 K/uL (4.8-10.8)
[2019-02-17 07:20] LABS: Albumin Level 2.5 gm/dl (3.4-5.0); BUN Creatinine Ratio 29.4 (10-20); Calcium 8.1 mg/dl (8.5-10.1); Creatinine Clr Calc Pharmacy 61.5 ml/min; Est GFR (African American) 105.1; Est GFR (Non-African American) 90.7; Potassium 3.9 mmol/L (3.5-5.1)
[2019-02-17 07:31] LABS: Albumin Globulin Ratio 0.9 (0.9-2); Bilirubin,Total 0.9 mg/dl (0.2-1); Globulin 2.7 gm/dl (2.5-4.0); Total Protein 5.2 gm/dl (6.4-8.2)
[2019-02-17 07:43] LABS: T4 Free Thyroxine 1.14 ng/dl (0.8-1.6)
[2019-02-17] MEDS: POTASSIUM CHLORIDE 10 MEQ TABCR PO SCH ×3 (09:05→21:45)
[2019-02-17] MEDS: LABETALOL HCL 100 MG TAB PO SCH ×3 (09:05→21:08)
[2019-02-17] MEDS: AMLODIPINE BESYLATE 5 MG TAB PO SCH (09:05)
[2019-02-17] MEDS: OXYCODONE HCL IR 5 MG TAB (IMMEDIATE RELEASE) PO PRN (11:31)
--- NOTE | 2019-02-17 13:51 | Hospitalist Progress Note ---
Date of Service February 17, 2019 Assessment & Plan (1) Intramural aortic hematoma: (2) Aortic aneurysm: -Aortic aneurysm and dissection has been a concern during this hospital stay because of evidence of aneurysm and hematoma -Emergency room physician discussed case with CT surgeon and Aj Zimmerman, surgical intervention not indicated at this time due to patient's age, comorbidities -palliative care services were consulted -as per current medical management, patient has been medically stable and it does not appear that an acute dissection will occur in the near future -continue labetalol 100 mg p.o. 3 times daily, -continue amlodipine from 10 mg daily -abdominal pain may be due to aortic aneurysm versus some component of mesenteric ischemia; encourage small meal portions to alleviate abdominal pain, -have transitioned to oral pain medication prn Chronic respiratory failure, history of COPD -Not in exacerbation -on chronic oxygen supplementation History of lung cancer, status post right lung resection, history of pneumothorax -Follows with Dr. Bell Hypothyroidism -continue Levothyroxine Anxiety -On PRN lorazepam DVT prophylaxis -SCDs Code status, DNR/DNI Disposition: plans are being coordinated with patient's family and social work and home health services to have patient be ready for hospital discharge on 02/18/19 (3) Unspecified severe protein-calorie malnutrition: Subjective Patient breathing on the nasal cannula. reports some intermittent pain towards the belly but generally is not asking for pain medications frequently Physical Exam Constitutional: WD/WN, vitals as above Eyes: EOM intact bilaterally ENMT: external ear and nose normal, oropharynx normal Neck: trachea midline, no thyromegaly Respiratory: normal respiratory effort, lungs clear to auscultation Cardiovascular: Rate/Rhythm: regular rate and regular rhythm Gastrointestinal (Abdomen): normal bowel sounds, soft, nontender, no hepatosplenomegaly Musculoskeletal: Head/Neck/Chest: normocephalic and head atraumatic Neurologic: PERRL, EOMI, accommodation nl, no face palsy, no dysarthria Psychiatric: A+Ox3, euthymic affect Results & Data Vital Signs (Past 12 Hours) Vital Signs Temp Pulse Pulse Pulse Resp BP Pulse Ox 02/17/19 07:38 36.9 C 82 18 118/67 98 02/17/19 07:10 83 02/17/19 04:00 36.7 C 84 18 118/71 95
[2019-02-17] MEDS ORDERED: MoRPHine SULFATE 2 MG/ML CARP IV STA (17:12)
[2019-02-17] MEDS ORDERED: NITROGLYCERIN SL 0.4 MG/TAB TAB SL STA (17:12)
[2019-02-17] MEDS: CHOLESTYRAMINE LIGHT 4 GM PKT PO SCH (21:05)
[2019-02-17] MEDS: LORazepam 0.5 MG TAB PO PRN (21:05)
[2019-02-18 01:56] LABS: Basophils # (auto) 0.02 K/uL (0-0.2); Basophils % (auto) 0.4 %; Eosinophils # (auto) 0.17 K/uL (0-0.5); Eosinophils % (auto) 3.7 %; Hematocrit (blood only) 31.4 % (37-47); Hemoglobin 10.3 g/dL (12.0-16.0); Immature Granulocytes # (auto) 0.01 K/uL (0.00-0.02); Immature Granulocytes % (auto) 0.2 %; Lymphocytes # (auto) 0.55 K/uL (1.2-3.4); Mean Corpuscular Hgb Conc 32.8 g/dL (32-36); Mean Corpuscular Volume 94.3 fL (80-100); Mean Platelet Volume 8.6 fL (7.4-10.4); Monocytes # (auto) 0.78 K/uL (0.11-0.59); Monocytes % (auto) 17.1 %; Neutrophils # (auto) 3.04 K/uL (1.4-6.5); Neutrophils % (auto) 66.6 %; Platelet Count 148 K/uL (130-400); RDW Coefficient of Variation 13.6 % (11.5-14.5); Red Blood Count 3.33 M/uL (4.2-5.4); White Blood Count 4.57 K/uL (4.8-10.8)
[2019-02-18 02:06] LABS: Partial Thromboplastin Ratio 1.2; Partial Thromboplastin Time 33.1 Seconds (21.0-31.0); Prothrombin Time 10.5 Seconds (9.0-12.0)
[2019-02-18 02:17] LABS: BUN Creatinine Ratio 28.8 (10-20); Blood Urea Nitrogen 15 mg/dl (7-18); Calcium 8.4 mg/dl (8.5-10.1); Carbon Dioxide 35 mmol/L (21-32); Chloride 99 mmol/L (98-107); Creatinine Clr Calc Pharmacy 55.6 ml/min; Est GFR (African American) 101.7; Est GFR (Non-African American) 87.7; Glucose 85 mg/dl (70-99); Potassium 4.1 mmol/L (3.5-5.1); Sodium 136 mmol/L (136-145)
[2019-02-18 02:21] LABS: Troponin I < 0.015 ng/ml (0-0.045)
[2019-02-18] MEDS: LEVOTHYROXINE SODIUM 88 MCG TABLET PO SCH (05:41)
[2019-02-18 07:12] VITALS: BP 126/73; PULSE 84; TEMP 98.1; O2SAT 92
[2019-02-18] MEDS: POTASSIUM CHLORIDE 10 MEQ TABCR PO SCH (07:51)
[2019-02-18] MEDS: AMLODIPINE BESYLATE 5 MG TAB PO SCH (07:52)
[2019-02-18] MEDS: LABETALOL HCL 100 MG TAB PO SCH ×2 (07:52→13:36)
--- NOTE | 2019-02-18 13:28 | Hospitalist Progress Note ---
Date of Service February 18, 2019 Assessment & Plan (1) Intramural aortic hematoma: (2) Aortic aneurysm: Intramural aortic hematoma, Aortic aneurysm evaluated for possible acute aortic dissection -Aortic aneurysm and dissection has been a concern during this hospital stay because of evidence of aneurysm and hematoma (Acute intramural hematoma of the aorta involving the aortic arch and descending thoracic aorta. A discrete dissection flap is not visualized; 2. 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 3 times daily, -continue amlodipine from 10 mg daily -home dose metoprolol and hydrochlorothiazide were stopped during the hospital stay and not to be continued as outpatient unless directed by primary care doctor -intermittent chest/abdomen pain during hospital stay echocardiogram 55 to 60% and is a small window in evaluating the aorta; troponins negative, abdominal pain may be due to aortic aneurysm versus some component of mesenteric ischemia; encourage small meal portions to alleviate abdominal pain, and has been on oral morphine 5 mg q6 hours for pain (ativan stopped on discharge in case of drug interactions with morphine) -abdominal ultrasound does not appear to be needed at this time given as per current medical management, patient has been medically stable and it does not appear that an acute dissection will occur in the near future -discharge to [facility] on 02/18/19 -patient should follow up with primary care doctor and may benefit with a routine ultrasound abdominal ultrasound versus CAT scan/MRI or aorta -Patient has primary care appointment on 02/22/2019 11:00 AM Provider Kimberly Jovel MD Department Internal Medicine [facility] Chronic respiratory failure, history of COPD -Not in exacerbation -on chronic oxygen supplementation History of lung cancer, status post right lung resection, history of pneumothorax -Follows with Dr. Bell Hypothyroidism -Patient's TSH is elevated to 12 but normal free T4 -continue usual home dose Levothyroxine 88 mcg daily and patient should have thyroid function tests rechecked in 2 to 3 weeks to see if any needs for thyroid medication adjustment Anxiety -On PRN lorazepam (hold on discharge with morphine) DVT prophylaxis -SCDs Code status, DNR/DNI Discharge to [facility] Discharge Diagnosis Intramural aortic hematoma, Aortic aneurysm (Acute intramural hematoma of the aorta involving the aortic arch and descending thoracic aorta. A discrete dissection flap is not visualized; 2. 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 She preferred to have diet instead of going fro abdomen ultrasound. No acute shortness of breath. On chronic oxygen supplementation. no vomiting. no dizziness. no lightheadedness Physical Exam Constitutional: WD/WN, vitals as above Eyes: EOM intact bilaterally ENMT: external ear and nose normal, oropharynx normal Neck: trachea midline, no thyromegaly Respiratory: normal respiratory effort, lungs clear to auscultation Cardiovascular: Rate/Rhythm: regular rate and regular rhythm Gastrointestinal (Abdomen): normal bowel sounds, soft, nontender, no hepatosplenomegaly Musculoskeletal: Head/Neck/Chest: normocephalic and head atraumatic Neurologic: PERRL, EOMI, accommodation nl, no face palsy, no dysarthria Psychiatric: A+Ox3, euthymic affect Orientation: cooperative Results & Data Vital Signs (Past 12 Hours) Vital Signs Temp Pulse Pulse Resp BP Pulse Ox 02/18/19 07:11 36.7 C 84 18 126/73 92 02/18/19 03:10 37.0 C 83 16 115/70 98 02/18/19 01:43 80
--- NOTE | 2019-02-18 13:48 | Discharge Summary ---
Date of Service February 18, 2019 Admission HPI Per Admitting Provider History obtained from patient, family, and records. Medical history significant for COPD, past tobacco abuse, hx TAA, right NSCLC status post surgery, hypertension, hypothyroidism, colon cancer status post surgery, anxiety disorder. Recent confinement March [address] surgery service for non-small cell lung CA, RLL sp thorascopic wedge resection. Preop CT from December 2017 showed mild dilatation of ascending thoracic aorta measuring 4 cm. Last night around dinnertime, patient experience achy chest, abdominal pain going to the back as if something exploded within her associated with shortness of breath symptoms. No unusual cough symptoms. No arm, leg weakness. CT angiogram showed: 1. Acute intramural hematoma of the aorta involving the aortic arch and descending thoracic aorta. A discrete dissection flap is not visualized 2. 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 Severe emphysema and postsurgical changes of bilateral wedge resections. 4. No enlarging masses 5. No evidence of pathologic adenopathy [facility] CT surgeon video conference specialist (Dr. Bruner) recommended medical management as per discussion with the ER provider. Medical History as above Surgical History : Ex lap, abdominal abscess drainage, eye surgery, colectomy, thyroidectomy, cholecystectomy, lung lobectomy, hysterectomy Family History :Breast cancer, heart disease, stroke Personal/Social history : Past tobacco abuse, no EtOH intake, retired meeting/event planner Exam Per Admitting Provider GENERAL: Slightly uncomfortable, slightly anxious, no respiratory distress, underweight SKIN: Normal color, warm HEENT: Bespectacled, pink palpebral conjunctivae, no ptosis, dry buccal mucosa NECK : Supple, no tenderness CHEST : Decreased breath sounds, no tenderness HEART : RRR, diastolic murmur ABDOMEN: Soft, nontender EXTREMITIES : No LE swelling/tenderness, no other conspicuous deformities noted NEUROLOGIC : Coherent, no facial asymmetry, no other gross focality Principal Diagnosis Intramural aortic hematoma, Aortic aneurysm (Acute intramural hematoma of the aorta involving the aortic arch and descending thoracic aorta. A discrete dissection flap is not visualized; 2. 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), evaluated for possible acute aortic dissection, Hypertension, Chronic respiratory failure, Hypothyrodism Discharge Exam Constitutional WD/WN, vitals as above Eyes EOM intact bilaterally ENMT external ear and nose normal, oropharynx normal Neck trachea midline, no thyromegaly Respiratory normal respiratory effort, lungs clear to auscultation Cardiovascular Rate/Rhythm: regular rate and regular rhythm Gastrointestinal (Abdomen) normal bowel sounds, soft, nontender, no hepatosplenomegaly Musculoskeletal Head/Neck/Chest: normocephalic and head atraumatic Neurologic PERRL, EOMI, accommodation nl, no face palsy, no dysarthria Psychiatric A+Ox3, euthymic affect Orientation: cooperative Discharge Data Allergies Allergy/AdvReac Type Severity Reaction Status Date / Time Penicillins Allergy Intermediate RASH; HAS Verified 02/10/19 00:07 TOLERATED MEFOXIN NEGAR Inhibitors AdvReac Intermediate SEVERE Verified 02/10/19 00:07 COUGH Consultations 02/10/19 01:38 Consult Case Management - Discharge Planning Routine 02/10/19 07:45 Consult Thoracic Surgery Routine 02/10/19 08:51 Consult Cardiology Routine 02/11/19 09:04 Consult Palliative Care Routine Ordered Studies 02/09/19 20:41 CT abd pelvis IV con only Stat 02/09/19 20:45 CT angio chest wo/w con Stat 02/14/19 20:08 CT abd pelvis wo con Routine Hospital Course (1) Intramural aortic hematoma: (2) Aortic aneurysm: Intramural aortic hematoma, Aortic aneurysm evaluated for possible acute aortic dissection -Aortic aneurysm and dissection has been a concern during this hospital stay because of evidence of aneurysm and hematoma (Acute intramural hematoma of the aorta involving the aortic arch and descending thoracic aorta. A discrete dissection flap is not visualized; 2. 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 3 times daily, -continue amlodipine from 10 mg daily -home dose metoprolol and hydrochlorothiazide were stopped during the hospital stay and not to be continued as outpatient unless directed by primary care doctor -intermittent chest/abdomen pain during hospital stay echocardiogram 55 to 60% and is a small window in evaluating the aorta; troponins negative, abdominal pain may be due to aortic aneurysm versus some component of mesenteric ischemia; encourage small meal portions to alleviate abdominal pain, and has been on oral morphine 5 mg q6 hours for pain (ativan stopped on discharge in case of drug interactions with morphine) -abdominal ultrasound does not appear to be needed at this time given as per current medical management, patient has been medically stable and it does not appear that an acute dissection will occur in the near future -discharge to [facility] on 02/18/19 -patient should follow up with primary care doctor and may benefit with a routine ultrasound abdominal ultrasound versus CAT scan/MRI or aorta -Patient has primary care appointment on 02/22/2019 11:00 AM Provider Kimberly Jovel MD Department Internal Medicine [facility] Chronic respiratory failure, history of COPD -Not in exacerbation -on chronic oxygen supplementation History of lung cancer, status post right lung resection, history of pneumothorax -Follows with Dr. Bell Hypothyroidism -Patient's TSH is elevated to 12 but normal free T4 -continue usual home dose Levothyroxine 88 mcg daily and patient should have thyroid function tests rechecked in 2 to 3 weeks to see if any needs for thyroid medication adjustment Anxiety -On PRN lorazepam (hold on discharge with morphine) DVT prophylaxis -SCDs Code status, DNR/DNI Discharge to [facility] Discharge Diagnosis Intramural aortic hematoma, Aortic aneurysm (Acute intramural hematoma of the aorta involving the aortic arch and descending thoracic aorta. A discrete dissection flap is not visualized; 2. 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), evaluated for possible acute aortic dissection, Hypertension, Chronic respiratory failure, Hypothyrodism (3) Unspecified severe protein-calorie malnutrition: Total Time Total Time Spent Total Time Spent (In Minutes): 40 minutes Total Time Includes: Examination of the Patient, Discharge Planning, Medication Reconciliation and Communication With Other Providers Discharge Plan Discharge Items Patient Disposition: Transfer Longterm [facility] Reason For Visit: AORTIC HEMATOMA Discharge Diagnosis: Intramural aortic hematoma, Aortic aneurysm (Acute intramural hematoma of the aorta involving the aortic arch and descending thoracic aorta. A discrete dissection flap is not visualized; 2. 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), Hypertension, Chronic respiratory failure, Hypothyrodism Condition: Fair Discharge Goals: Decrease discomfort Activity: Per 'Additional Instructions' section Non-emergency contact: Primary Care Provider Call non-emergency contact if: you have any medication questions Follow-up/Referrals: Lluvia Ingram DO [Primary Care Provider] - Diet: Heart Healthy Add Provider Instructions: -Aortic aneurysm and dissection has been a concern during this hospital stay because of evidence of aneurysm and hematoma (Acute intramural hematoma of the aorta involving the aortic arch and descending thoracic aorta. A discrete dissection flap is not visualized; 2. 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 3 times daily, -continue amlodipine from 10 mg daily -home dose metoprolol and hydrochlorothiazide were stopped during the hospital stay and not to be continued as outpatient unless directed by primary care doctor -intermittent chest/abdomen pain during hospital stay echocardiogram 55 to 60% and is a small window in evaluating the aorta; troponins negative, abdominal pain may be due to aortic aneurysm versus some component of mesenteric ischemia; encourage small meal portions to alleviate abdominal pain, and has been on oral morphine 5 mg q6 hours for pain (ativan stopped on discharge in case of drug interactions with morphine) -abdominal ultrasound does not appear to be needed at this time given as per current medical management, patient has been medically stable and it does not appear that an acute dissection will occur in the near future -discharge to [facility] on 02/18/19 -patient should follow up with primary care doctor and may benefit with a routine ultrasound abdominal ultrasound versus CAT scan/MRI or aorta -Patient has primary care appointment on 02/22/2019 11:00 AM Provider Kimberly Jovel MD Department Internal Medicine [facility] -Patient's TSH is elevated to 12 but normal free T4 -continue usual home dose Levothyroxine 88 mcg daily and patient should have thyroid function tests rechecked in 2 to 3 weeks to see if any needs for thyroid medication adjustment Prescriptions: New amlodipine 10 mg tablet 10 mg PO QAM 30 Days Qty: 30 RF: 0 labetalol 100 mg Tablet 100 mg PO TID 30 Days Qty: 90 RF: 0 acetaminophen 325 mg tablet 325 mg PO Q6H PRN (Reason: fever or pain) 5 Days Qty: 20 RF: 0 oxycodone 5 mg Tablet 5 mg PO Q6H PRN (Reason: moderate pain) 4 Days Qty: 16 RF: 0 Continued levothyroxine [Synthroid] 88 mcg tablet 88 mcg PO DAILY RF: 0 ascorbic acid (vitamin C) 500 mg Tablet 500 mg PO QPM RF: 0 Prevalite 4 gram powder in packet 1 packet PO BID RF: 0 cholecalciferol (vitamin D3) [Vitamin D3] 2,000 unit Tablet 4,000 unit PO DAILY RF: 0 Combivent Respimat 20-100 mcg/actuation mist 1 puff Inhalation QID PRN (Reason: Shortness Of Breath Or Wheezing) RF: 0 cyanocobalamin (vitamin B-12) [Vitamin B-12] 1,000 mcg Tablet Extended Release 1,000 mcg PO DAILY RF: 0 folic acid 1 mg tablet 1 mg PO DAILY RF: 0 potassium bicarb-citric acid [Klor-Con/EF] 25 mEq tablet, effervescent 25 meq PO BID RF: 0 clotrimazole 10 mg taqueria 10 mg PO UD RF: 0 ipratropium-albuterol 0.5 mg-3 mg(2.5 mg base)/3 mL solution for nebulization 3 ml inhalation QID RF: 0 Discontinued amlodipine [Norvasc] 5 mg tablet 5 mg PO QAM RF: 0 metoprolol tartrate [Lopressor] 50 mg tablet 50 mg PO BID RF: 0 hydrochlorothiazide [Microzide] 12.5 mg capsule 12.5 mg PO QAM RF: 0 lorazepam [Ativan] 0.5 mg tablet 0.5 mg PO BID PRN (Reason: anxiety) RF: 0 Stand-Alone Forms: [facility] Discharge Orders: Discharge Order (Routine); Ordered 02/18/19 Ordered By: Juan Diego Mariscal Skilled Items Patient informed of condition?: Yes DNR: Yes Discharge Level of Care: Skilled Communicable Disease: No Discharge Prognosis: Stable Admission Data Admit Date/Time: 02/10/19 00:19 Attending Provider: Juan Diego Mariscal Admit Provider: Ramiro Haynes Primary Care Provider: Lluvia Ingram Other Providers: Ramiro Bell ; Dario Canales ; Taya Carty Service: Telemetry Medical
[2019-02-18] MEDS: OXYCODONE HCL IR 5 MG TAB (IMMEDIATE RELEASE) PO PRN (14:13)
[2019-02-18] MEDS: LORazepam 0.5 MG TAB PO PRN (14:13)
--- NOTE | 2019-02-18 17:27 | Progress Note ---
DATE: 02/18/2019 Leticia was seen today and she continues to look very good. She is currently pain free. She has been eating a little better. She is going to [facility]. I would like to see her back in the office in about a month with an x-ray. I have explained to her that this can be a fatal development in many people; however, I think she looks better than I have seen in the last few months. Blood pressure is better controlled. She feels better. She did undergo an echocardiogram today, which shows an ejection fraction of about 55%-60%. She also has no aortic valve disease. We had a long talk and I will see her back in the office in a month or whenever she would choose to come see us. ROBERT
== END 2019-02-18 14:42 | DRG 299 ==
LOC: ED 20:03 → 2N 02-10 00:19 → SUATTDRO 02-10 00:19 → 2N 02-10 00:43 → 4E 02-11 09:04 → 2N 02-11 19:32